=== PATIENT | female | born 1960 | race Caucasian/White ===

== ENCOUNTER 2018-01-18 13:38 | Emergency (ER) | payer OTHER ==
--- NOTE | 2018-01-18 14:33 | RAD REPORT ---
EXAM DESCRIPTION: VAS - Extrem Venous W Compress Jenaro - 01/18/2018 2:22 pm CLINICAL HISTORY: Bilateral leg edema and swelling. COMPARISON: None. TECHNIQUE: Real-time sonographic interrogation of the left and right lower extremity deep venous sys tems was performed. FINDINGS: Normal compressibility, flow augmentation, phasic flow and spontaneous flow is identified in both the left and right lower extremity deep venous systems. IMPRESSION: No sonographic evidence of left or right lower extremity deep venous thrombosis.
--- NOTE | 2018-01-18 14:36 | ER ---
Nurse's Notes [facility] Name: Roseline Payne Age: 57 yrs Sex: Female : 1960 Arrival Date: 01/18/2018 Time: 13:44 Bed 16 Private MD: Diagnosis: Chronic pain, not elsewhere classified;Myalgia;Headache Presentation: 01/18 13:57 Presenting complaint: Patient states: has chronic low back pain and neck pain and hs iw been out of Tylenol #4, has hx of RA, also has blood clotting disorder and has been having increased pain to LLE and RLE, left worse than right, hx of DVT in LLE. Transition of care: patient was not received from another setting of care. Onset of symptoms was January 15, 2018. Risk Assessment: Do you want to hurt yourself or someone else? Patient reports no desire to harm self or others. Initial Sepsis Screen: Does the patient meet any 2 criteria? No. Patient's initial sepsis screen is negative. Does the patient have a suspected source of infection? No. Patient's initial sepsis screen is negative. Care prior to arrival: None. 13:57 Method Of Arrival: EMS: [facility] iw 13:57 Acuity: YARIEL 3 iw Triage Assessment: 16:30 General: Appears in no apparent distress. comfortable, Behavior is calm, cooperative, ch appropriate for age. 16:30 Pain: Complains of pain in left hand and left arm. 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 - Social history:: Smoking status: Patient/guardian denies using tobacco, pt stopped smoking 100 days ago, was smoking 1/2 ppd. - Ebola Screening: : Patient negative for fever greater than or equal to 101.5 degrees Fahrenheit, and additional compatible Ebola Virus Disease symptoms Patient denies exposure to infectious person Patient denies travel to an Ebola-affected area in the 21 days before illness onset No symptoms or risks identified at this time. Screenin:30 Abuse screen: Denies threats or abuse. Denies injuries from another. ch 19:46 Nutritional screening: No deficits noted. Tuberculosis screening: No symptoms or risk ch factors identified. Fall Risk None identified. Assessment: 14:30 General: Appears in no apparent distress. uncomfortable, Behavior is calm, cooperative, ch appropriate for age. Pain: Complains of pain in right leg and left leg. 14:30 Neuro: No deficits noted. Respiratory: Airway is patent Respiratory effort is even, ch unlabored. GI: No signs and/or symptoms were reported involving the gastrointestinal system. Derm: Skin is pink, warm \T\ dry. Musculoskeletal: Circulation, motion, and sensation intact. Capillary refill < 3 seconds, in bilateral fingers. toes. Range of motion: intact in all extremities. Vital Signs: 13:59 BP 144 / 84; Pulse 81; Resp 18 S; Temp 97.8; Pulse Ox 97% on R/A; Weight 77.11 kg; iw Height 5 ft. 4 in. (162.56 cm); Pain 8/10; 16:00 BP 135 / 78; Pulse 81; Resp 18; Temp 98.3; Pulse Ox 99% on R/A; Pain 6/10; ch 13:59 Body Mass Index 29.18 (77.11 kg, 162.56 cm) iw ED Course: 13:44 Patient arrived in ED. dm5 13:51 [facility]ads[facility]C [facility] snw 13:51 Diallo Lu MD is Attending Physician. snw 13:58 Triage completed. iw 13:59 Arm band placed on. iw 14:11 Patient taken to ultrasound. hr 14:15 Viji Mares, R[place] is Primary Nurse. ch 14:21 US Extremity Venous W Compression Jenaro In Process Unspecified. EDMS 14:25 Ultrasound completed. Patient tolerated well. Patient moved back from ultrasound. aa4 14:30 No provider procedures requiring assistance completed. Patient did not have IV access ch during this emergency room visit. 16:00 Patient has correct armband on for positive identification. Placed in gown. Bed in low ch position. Call light in reach. Side rails up X 1. Adult w/ patient. Pulse ox on. NIBP on. Administered Medications: 14:50 Drug: Valium 5 mg Route: PO; 15:10 Follow up: Response: No adverse reaction; Marked relief of symptoms 14:50 Drug: fentaNYL (PF) 25 mcg Route: IM; Site: left gluteus; 15:10 Follow up: Response: No adverse reaction Outcome: 14:35 Discharge ordered by . snw 15:20 Discharged to home ambulatory, with family. 15:20 Condition: stable 15:20 Discharge instructions given to patient, Instructed on discharge instructions, follow up and referral plans. medication usage, Demonstrated understanding of instructions, follow-up care, medications, Prescriptions given X 1. 15:29 Patient left the ED. iw Signatures: Dispatcher [employer] Viji Looney, RN RN Anne Manning RN RN dm5 Lissy Madsen, MULTIMEDIA PROJECT MANAGER-C MULTIMEDIA PROJECT MANAGER-Csnw Renetta العراقي Irene, RN RN Sejal Hu aa4 Corrections: (The following items were deleted from the chart) 01/19 08:41 06/04 19:46 Abuse screen: Denies threats or abuse. Denies injuries from another. [facility]
--- NOTE | 2018-01-18 14:36 | EDPHYS ---
Physician Documentation [facility] Name: Roseline Payne Age: 57 yrs Sex: Female : 1960 Arrival Date: 01/18/2018 Time: 13:44 Bed 16 Private MD: ED Physician Diallo Lu HPI: 01/18 13:56 This 57 yrs old Female presents to ER via Unassigned with complaints of Leg snw Pain. 13:56 The patient presents with pain, that is acute, swelling. The complaints affect the left snw hamstring and left calf. Context: The problem was sustained at home, resulted from an unknown cause, the patient can fully bear weight, the patient is able to ambulate, hx of clotting disorder. Onset: The symptoms/episode began/occurred suddenly, 1 week(s) ago, and became worse and became persistent. Associated signs and symptoms: Pertinent positives: pain to bilateral legs and back, headache. Severity of symptoms: At their worst the symptoms were moderate. The patient has experienced similar episodes in the past. The patient has not recently seen a physician, the patient's primary care provider is Dr. Dr. Bryant. takes xarelto but pt did not take meds x 2 days and then started taking them again. 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 - Social history:: Smoking status: Patient/guardian denies using tobacco, pt stopped smoking 100 days ago, was smoking 1/2 ppd. - Ebola Screening: : Patient negative for fever greater than or equal to 101.5 degrees Fahrenheit, and additional compatible Ebola Virus Disease symptoms Patient denies exposure to infectious person Patient denies travel to an Ebola-affected area in the 21 days before illness onset No symptoms or risks identified at this time. ROS: 13:56 Eyes: Negative for injury, pain, redness, and discharge, ENT: Negative for injury, snw pain, and discharge, Neck: Negative for injury, pain, and swelling, Cardiovascular: Negative for chest pain, palpitations, and edema, Respiratory: Negative for shortness of breath, cough, wheezing, and pleuritic chest pain, Abdomen/GI: Negative for abdominal pain, nausea, vomiting, diarrhea, and constipation, : Negative for injury, bleeding, discharge, and swelling, Skin: Negative for injury, rash, and discoloration, Neuro: Negative for headache, weakness, numbness, tingling, and seizure. 13:56 Constitutional: Positive for body aches, malaise. 13:56 Back: Positive for decreased range of motion, pain at rest, pain with movement. 13:56 MS/extremity: Positive for pain, swelling, of the right leg and left leg. Exam: 13:56 Head/Face: Normocephalic, atraumatic. Eyes: Pupils equal round and reactive to light, snw extra-ocular motions intact. Lids and lashes normal. Conjunctiva and sclera are non-icteric and not injected. Cornea within normal limits. Periorbital areas with no swelling, redness, or edema. ENT: Nares patent. No nasal discharge, no septal abnormalities noted. Tympanic membranes are normal and external auditory canals are clear. Oropharynx with no redness, swelling, or masses, exudates, or evidence of obstruction, uvula midline. Mucous membranes moist. Neck: Trachea midline, no thyromegaly or masses palpated, and no cervical lymphadenopathy. Supple, full range of motion without nuchal rigidity, or vertebral point tenderness. No Meningismus. Chest/axilla: Normal chest wall appearance and motion. Nontender with no deformity. No lesions are appreciated. Cardiovascular: Regular rate and rhythm with a normal S1 and S2. No gallops, murmurs, or rubs. Normal PMI, no JVD. No pulse deficits. Respiratory: Lungs have equal breath sounds bilaterally, clear to auscultation and percussion. No rales, rhonchi or wheezes noted. No increased work of breathing, no retractions or nasal flaring. Abdomen/GI: Soft, non-tender, with normal bowel sounds. No distension or tympany. No guarding or rebound. No evidence of tenderness throughout. Back: No spinal tenderness. No costovertebral tenderness. Full range of motion. Skin: Warm, dry with normal turgor. Normal color with no rashes, no lesions, and no evidence of cellulitis. Neuro: Awake and alert, GCS 15, oriented to person, place, time, and situation. Cranial nerves II-XII grossly intact. Motor strength 5/5 in all extremities. Sensory grossly intact. Cerebellar exam normal. Normal gait. 13:56 Constitutional: The patient appears alert, anxious, restless, uncomfortable. 13:56 Musculoskeletal/extremity: Extremities: noted in the left leg: swelling, noted in the right leg: ROM: intact in all extremities, Circulation is intact in all extremities. Sensation intact. Compartment Syndrome exam of affected extremity: is normal. Nails: discolored. Vital Signs: 13:59 BP 144 / 84; Pulse 81; Resp 18 S; Temp 97.8; Pulse Ox 97% on R/A; Weight 77.11 kg; iw Height 5 ft. 4 in. (162.56 cm); Pain 8/10; 16:00 BP 135 / 78; Pulse 81; Resp 18; Temp 98.3; Pulse Ox 99% on R/A; Pain 6/10; ch 13:59 Body Mass Index 29.18 (77.11 kg, 162.56 cm) iw MDM: 13:51 Patient medically screened. snw 14:36 Data reviewed: vital signs, nurses notes. Data interpreted: Pulse oximetry: on room air snw is 97 %. Interpretation: normal. Counseling: I had a detailed discussion with the patient and/or guardian regarding: the historical points, exam findings, and any diagnostic results supporting the discharge/admit diagnosis, the presence of at least one elevated blood pressure reading (>120/80) during this emergency department visit, radiology results, the need for outpatient follow up, to return to the emergency department if symptoms worsen or persist or if there are any questions or concerns that arise at home. Special discussion: I have referred the patient to see his PCP for further evaluation of high blood pressure. Based on the history and exam findings, there is no indication for further emergent testing or inpatient evaluation. I discussed with the patient/guardian the need to see the primary care provider for further evaluation of the symptoms. 01/18 13:52 Order name: US Extremity Venous W Compression Jenaro; Complete Time: 14:34 snw Administered Medications: 14:50 Drug: Valium 5 mg Route: PO; 15:10 Follow up: Response: No adverse reaction; Marked relief of symptoms 14:50 Drug: fentaNYL (PF) 25 mcg Route: IM; Site: left gluteus; 15:10 Follow up: Response: No adverse reaction Disposition: 01/19 08:14 Co-signature as Attending Physician, Diallo Lu MD I agree with the assessment and charu plan of care. Disposition: 01/18/18 14:35 Discharged to Home. Impression: Chronic pain, not elsewhere classified, Myalgia, Headache. - Condition is Stable. - Discharge Instructions: Chronic Pain, General Headache Without Cause, Hypertension, Musculoskeletal Pain, Cryotherapy, [id number], Rehydration, Adult, Heat Therapy. - Prescriptions for orphenadrine citrate 100 mg Oral Tablet Sustained Release - take 1 tablet by ORAL route 2 times per day As needed; 20 tablet. - Work release form, Medication Reconciliation Form, Thank You Letter, Antibiotic Education, Prescription Opioid Use form. - Follow up: Emergency Department; When: As needed; Reason: Worsening of condition. Follow up: Private Physician; When: 1 - 2 days; Reason: Recheck today's complaints, Continuance of care, Re-evaluation by your physician. Signatures: Dispatcher [employer] Viji Looney, [place] RN Diallo Parsons MD MD cha Therrien, Shelly, COMPUTED TOMOGRAPHY TECHNOLOGIST-C COMPUTED TOMOGRAPHY TECHNOLOGIST-Csnw Veronica Estrella RN RN iw Corrections: (The following items were deleted from the chart) 01/18 15:29 14:35 01/18/2018 14:35 Discharged to Home. Impression: Chronic pain, not elsewhere iw classified; Myalgia; Headache. Condition is Stable. Forms are Medication Reconciliation Form, Thank You Letter, Antibiotic Education, Prescription Opioid Use. Follow up: Emergency Department; When: As needed; Reason: Worsening of condition. Follow up: Private Physician; When: 1 - 2 days; Reason: Recheck today's complaints, Continuance of care, Re-evaluation by your physician. snw
[2018-01-18] MEDS ORDERED: FENTANYL CITR 100 MCG/2 ML ONE (14:42)
[2018-01-18] MEDS ORDERED: DIAZEPAM 5 MG TABLET ONE (14:42)
[2018-01-18 15:33] VITALS: BP 144/84; TEMP 97.8; O2SAT 97
== END 2018-01-18 15:29 | disposition home or self-care (01) ==
LOC: ER 13:38
DX: G89.29 Other chronic pain (principal); F45.42 Pain disorder with related psychological factors; M79.1 Myalgia; R51 Headache; Z87.891 Personal history of nicotine dependence
CPT/HCPCS: 93970; 96372; 99284; J3010

== ENCOUNTER 2022-09-10 12:35 | Emergency (ER) | payer OTHER ==
--- OUTSIDE RECORDS SUMMARY | 2022-09-10 12:46 | XMS REPORT | Continuity of Care Document ---
:1960 Author Organization [facility] t Address 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 without - [facility] hepatic hepatic [facility] Encounter Encounter Problem Active Com mon for for [facility] immunizati immunizati - [facility] on on [facility] Essential Essential Problem Active Com mon hypertensi hypertensi Sp ameya on on - [facility] Bipolar Bipolar Problem Active Common depression depression Sp ameya - [facility] 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 Clinician (SIG) Name Name FLUOXETINE No HYDROCHLORI 1-10 DE 60 MG 00:00: TABS 00 USE 2021-08 No DIRECTED 0-06 PER PACKAGE 00:00: INSTRUCTION 00 S. DO NOT USE MORE THAN 1 PATCH EVERY 12 TO 24 HOURS. USE 2021-08 No DIRECTED 0-06 PER PACKAGE 00:00: INSTRUCTION 00 S. DO NOT USE MORE THAN 1 PATCH EVERY 12 TO 24 HOURS. USE 2021-08 No DIRECTED 0-06 PER PACKAGE 00:00: INSTRUCTION 00 S. DO NOT USE MORE THAN 1 PATCH EVERY 12 TO 24 HOURS. USE 2-1 No DIRECTED 0-06 PER PACKAGE 00:00: INSTRUCTION 00 S. DO NOT USE MORE THAN 1 PATCH EVERY 12 TO 24 HOURS. SYMBICORT 2-0 No 160-4.5 9-15 MCG/ACT 00:00: AERO 00 SYMBICORT 2-0 No 160-4.5 9-15 MCG/ACT 00:00: AERO 00 SYMBICORT 2-0 No 160-4.5 9-15 MCG/ACT 00:00: AERO 00 SYMBICORT 2-0 No 160-4.5 9-15 MCG/ACT 00:00: AERO 00 SYMBICORT 2-0 No 160-4.5 9-15 MCG/ACT 00:00: AERO 00 Dose 2-0 No Unknown 9-15 00:00: 00 SYMBICORT 2022-0 No 160-4.5 9-15 MCG/ACT 00:00: AERO 00 &lt 2022-0 No 8-16 00:00: 00 Dose 2022-0 No Unknown 8-16 00:00: 00 &lt 2022-0 No 8-16 00:00: 00 Dose 2022-0 No Unknown 8-16 00:00: 00 &lt 2022-0 No 8-16 00:00: 00 Dose 2022-0 No Unknown 8-16 00:00: 00 &lt 2022-0 No 8-16 00:00: 00 Dose 2022-0 No Unknown 8-16 00:00: 00 &lt 2022-0 No 8-16 00:00: 00 Dose 2022-0 No Unknown 8-16 00:00: 00 &lt 2022-0 No 8-16 00:00: 00 Dose 2022-0 No Unknown 8-16 00:00: 00 &lt 2022-0 No 8-16 00:00: 00 Dose 2022-0 No Unknown 8-16 00:00: 00 &lt 2022-0 No 8-16 00:00: 00 Dose 2022-0 No Unknown 8-16 00:00: 00 &lt 2022-0 No 8-15 00:00: 00 Dose 2022-0 No Unknown 8-15 00:00: 00 &lt 2022-0 No 8-15 00:00: 00 Dose 2022-0 No Unknown 8-15 00:00: 00 &lt 2022-0 No 8-15 00:00: 00 Dose 2022-0 No Unknown 8-15 00:00: 00 &lt 2022-0 No 8-15 00:00: 00 Dose 2022-0 No Unknown 8-15 00:00: 00 &lt 2022-0 No 8-15 00:00: 00 Dose 2022-0 No Unknown 8-15 00:00: 00 &lt 2022-0 No 8-15 00:00: 00 Dose 2022-0 No Unknown 8-15 00:00: 00 &lt 2022-0 No 8-15 00:00: 00 Dose 2022-0 No Unknown 8-15 00:00: 00 &lt 2022-0 No 8-15 00:00: 00 Dose 2022-0 No Unknown 8-15 00:00: 00 atenolol 2022-0 No 1mg 100 8-12 mg-chlortha 00:00: lidone 25 00 mg tablet &lt 2022-0 No 8-12 00:00: 00 &lt 2022-0 No 8-12 00:00: 00 &lt 2022-0 No 8-12 00:00: 00 atenolol 2022-0 No 1mg 100 8-12 mg-chlortha 00:00: lidone 25 00 mg tablet &lt 2022-0 No 8-12 00:00: 00 &lt 2022-0 No 8-12 00:00: 00 &lt 2022-0 No 8-12 00:00: 00 atenolol 2022-0 No 1mg 100 8-12 mg-chlortha 00:00: lidone 25 00 mg tablet &lt 2022-0 No 8-12 00:00: 00 &lt 2022-0 No 8-12 00:00: 00 &lt 2022-0 No 8-12 00:00: 00 atenolol 2022-0 No 1mg 100 8-12 mg-chlortha 00:00: lidone 25 00 mg tablet &lt 2022-0 No 8-12 00:00: 00 &lt 2022-0 No 8-12 00:00: 00 &lt 2022-0 No 8-12 00:00: 00 atenolol 2022-0 No 1mg 100 8-12 mg-chlortha 00:00: lidone 25 00 mg tablet &lt 2022-0 No 8-12 00:00: 00 &lt 2022-0 No 8-12 00:00: 00 &lt 2022-0 No 8-12 00:00: 00 atenolol 2022-0 No 1mg 100 8-12 mg-chlortha 00:00: lidone 25 00 mg tablet &lt 2022-0 No 8-12 00:00: 00 &lt 2022-0 No 8-12 00:00: 00 &lt 2022-0 No 8-12 00:00: 00 atenolol 2022-0 No 1mg 100 8-12 mg-chlortha 00:00: lidone 25 00 mg tablet &lt 2022-0 No 8-12 00:00: 00 &lt 2022-0 No 8-12 00:00: 00 &lt 2022-0 No 8-12 00:00: 00 atenolol 2022-0 No 1mg 100 8-12 mg-chlortha 00:00: lidone 25 00 mg tablet &lt 2022-0 No 8-12 00:00: 00 &lt 2022-0 No 8-12 00:00: 00 &lt 2022-0 No 8-12 00:00: 00 &lt 2022-0 No 8-08 00:00: 00 &lt 2022-0 No 8-08 00:00: 00 &lt 2022-0 No 8-08 00:00: 00 &lt 2022-0 No 8-08 00:00: 00 &lt 2022-0 No 8-08 00:00: 00 &lt 2022-0 No 8-08 00:00: 00 &lt 2022-0 No 8-08 00:00: 00 &lt 2022-0 No 8-08 00:00: 00 Dose 2022-0 No 20 Unknown 8- 00:00: 00 Dose 2022-0 No 20 Unknown 8- 00:00: 00 Dose 2022-0 No 20 Unknown 8- 00:00: 00 Dose 2022-0 No 20 Unknown 8- 00:00: 00 Dose 2022-0 No 20 Unknown 8-05 00:00: 00 Dose 2022-0 No 20 Unknown 8- 00:00: 00 Dose 2022-0 No 20 Unknown 8-05 00:00: 00 Dose 2022-0 No 20 Unknown 8-05 00:00: 00 &lt 2022-0 No 60 8-04 00:00: 00 Dose 2022-0 No 40 Unknown 8- 00:00: 00 &lt 2022-0 No 8-04 00:00: 00 &lt 2022-0 No 60 8-04 00:00: 00 Dose 2022-0 No 40 Unknown 8- 00:00: 00 &lt 2022-0 No 8-04 00:00: 00 &lt 2022-0 No 60 8-04 00:00: 00 Dose 2022-0 No 40 Unknown 8- 00:00: 00 &lt 2022-0 No 8-04 00:00: 00 &lt 2022-0 No 60 8-04 00:00: 00 Dose 2022-0 No 40 Unknown 8- 00:00: 00 &lt 2022-0 No 8-04 00:00: 00 &lt 2022-0 No 60 8-04 00:00: 00 Dose 2022-0 No 40 Unknown 8- 00:00: 00 &lt 2022-0 No 8-04 00:00: 00 &lt 2022-0 No 60 8-04 00:00: 00 Dose 2022-0 No 40 Unknown 8- 00:00: 00 &lt 2022-0 No 8-04 00:00: 00 &lt 2022-0 No 60 8-04 00:00: 00 Dose 2022-0 No 40 Unknown 8- 00:00: 00 &lt 2022-0 No 8-04 00:00: 00 &lt 2022-0 No 60 8-04 00:00: 00 Dose 2022-0 No 40 Unknown 8- 00:00: 00 &lt 2022-0 No 8-04 00:00: 00 Dose 2022-0 No Unknown 8- 00:00: 00 &lt 2022-0 No 40 8- 00:00: 00 Dose 2022-0 No Unknown 8- 00:00: 00 &lt 2022-0 No 40 8- 00:00: 00 Dose 2022-0 No Unknown 8- 00:00: 00 &lt 2022-0 No 40 8- 00:00: 00 Dose 2022-0 No Unknown 8- 00:00: 00 &lt 2022-0 No 40 8- 00:00: 00 Dose 2022-0 No Unknown 8- 00:00: 00 &lt 2022-0 No 40 8- 00:00: 00 Dose 2022-0 No Unknown 8- 00:00: 00 &lt 2022-0 No 40 8- 00:00: 00 Dose 2022-0 No Unknown 8- 00:00: 00 &lt 2022-0 No 40 8- 00:00: 00 Dose 2022-0 No Unknown 8- 00:00: 00 &lt 2022-0 No 40 8- 00:00: 00 &lt 2022-0 No 40 7-18 00:00: 00 &lt 2022-0 No 40 7-18 00:00: 00 &lt 2022-0 No 40 7-18 00:00: 00 &lt 2022-0 No 40 7-18 00:00: 00 &lt 2022-0 No 40 7-18 00:00: 00 &lt 2022-0 No 40 7-18 00:00: 00 &lt 2022-0 No 40 7-18 00:00: 00 &lt 2022-0 No 40 7-18 00:00: 00 &lt 2022-0 No 40 7-18 00:00: 00 Dose 2022-0 No 20 Unknown 7-11 00:00: 00 &lt 2022-0 No 40 7-11 00:00: 00 &lt 2022-0 No 7-11 00:00: 00 &lt 2022-0 No 20 7-11 00:00: 00 &lt 2022-0 No 7-11 00:00: 00 &lt 2022-0 No 7-11 00:00: 00 Dose 2022-0 No 20 Unknown 7-11 00:00: 00 &lt 2022-0 No 40 7-11 00:00: 00 &lt 2022-0 No 7-11 00:00: 00 Dose 2022-0 No 20 Unknown 7-11 00:00: 00 &lt 2022-0 No 20 7-11 00:00: 00 &lt 2022-0 No 7-11 00:00: 00 &lt 2022-0 No 7-11 00:00: 00 Dose 2022-0 No 20 Unknown 7-11 00:00: 00 &lt 2022-0 No 60 7-11 00:00: 00 &lt 2022-0 No 20 7-11 00:00: 00 &lt 2022-0 No 500 7-11 00:00: 00 &lt 2022-0 No 60 7-11 00:00: 00 &lt 2022-0 No 20 7-11 00:00: 00 &lt 2022-0 No 500 7-11 00:00: 00 Dose 2022-0 No 20 Unknown 7- 00:00: 00 &lt 2022-0 No 40 7-11 00:00: 00 &lt 2022-0 No 7-11 00:00: 00 &lt 2022-0 No 20 7- 00:00: 00 &lt 2022-0 No 7-11 00:00: 00 &lt 2022-0 No 7-11 00:00: 00 Dose 2022-0 No 20 Unknown 7- 00:00: 00 &lt 2022-0 No 60 7- 00:00: 00 &lt 2022-0 No 20 7-11 00:00: 00 &lt 2022-0 No 500 7- 00:00: 00 Dose 2022-0 No 20 Unknown 7- 00:00: 00 &lt 2022-0 No 40 7- 00:00: 00 &lt 2022-0 No 7-11 00:00: 00 &lt 2022-0 No 20 7-11 00:00: 00 &lt 2022-0 No 7-11 00:00: 00 &lt 2022-0 No 7-11 00:00: 00 Dose 2022-0 No 20 Unknown 7-11 00:00: 00 &lt 2022-0 No 60 7-11 00:00: 00 &lt 2022-0 No 20 7-11 00:00: 00 &lt 2022-0 No 500 7-11 00:00: 00 Dose 2022-0 No 20 Unknown 7- 00:00: 00 &lt 2022-0 No 40 7-11 00:00: 00 &lt 2022-0 No 7-11 00:00: 00 &lt 2022-0 No 20 7-11 00:00: 00 &lt 2022-0 No 7-11 00:00: 00 &lt 2022-0 No 7-11 00:00: 00 Dose 2022-0 No 20 Unknown 7- 00:00: 00 &lt 2022-0 No 60 7- 00:00: 00 &lt 2022-0 No 20 7-11 00:00: 00 &lt 2022-0 No 500 7-11 00:00: 00 Dose 2022-0 No 20 Unknown 7- 00:00: 00 &lt 2022-0 No 40 7- 00:00: 00 &lt 2022-0 No 7-11 00:00: 00 &lt 2022-0 No 20 7- 00:00: 00 &lt 2022-0 No 7- 00:00: 00 &lt 2022-0 No 7- 00:00: 00 Dose 2022-0 No 20 Unknown 7- 00:00: 00 &lt 2022-0 No 60 7- 00:00: 00 &lt 2022-0 No 20 7- 00:00: 00 &lt 2022-0 No 500 7- 00:00: 00 Dose 2022-0 No 20 Unknown 7- 00:00: 00 &lt 2022-0 No 40 7- 00:00: 00 &lt 2022-0 No 7- 00:00: 00 &lt 2022-0 No 20 7- 00:00: 00 &lt 2022-0 No 7-11 00:00: 00 &lt 2022-0 No 7-11 00:00: 00 Dose 2022-0 No 20 Unknown 7- 00:00: 00 &lt 2022-0 No 60 7- 00:00: 00 &lt 2022-0 No 20 7-11 00:00: 00 &lt 2022-0 No 500 7-11 00:00: 00 Dose 2022-0 No 20 Unknown 7- 00:00: 00 &lt 2022-0 No 40 7-11 00:00: 00 &lt 2022-0 No 7-11 00:00: 00 &lt 2022-0 No 20 7-11 00:00: 00 &lt 2022-0 No 7-11 00:00: 00 &lt 2022-0 No 7-11 00:00: 00 Dose 2022-0 No 20 Unknown 7-11 00:00: 00 &lt 2022-0 No 60 7-11 00:00: 00 &lt 2022-0 No 20 7-11 00:00: 00 &lt 2022-0 No 500 7- 00:00: 00 Dose 2022-0 No 20 Unknown 7-11 00:00: 00 &lt 2022-0 No 40 7-11 00:00: 00 &lt 2022-0 No 7-11 00:00: 00 &lt 2022-0 No 20 7-11 00:00: 00 &lt 2022-0 No 7-11 00:00: 00 &lt 2022-0 No 7-11 00:00: 00 Dose 2022-0 No 20 Unknown 7- 00:00: 00 &lt 2022-0 No 60 7- 00:00: 00 &lt 2022-0 No 20 7-11 00:00: 00 &lt 2022-0 No 500 7-11 00:00: 00 &lt 2022-0 No 6-29 00:00: 00 &lt 2022-0 No 6-29 00:00: 00 &lt 2022-0 No 6-29 00:00: 00 &lt 2022-0 No 6-29 00:00: 00 &lt 2022-0 No 6-29 00:00: 00 &lt 2022-0 No 6-29 00:00: 00 &lt 2022-0 No 6-29 00:00: 00 &lt 2022-0 No 6-29 00:00: 00 &lt 2022-0 No 6-29 00:00: 00 TAKE ONE 2022-0 No (1) 6-24 TABLET(S) 00:00: BY MOUTH 00 ONCE A DAY WITH FOOD. TAKE ONE 2022-0 No (1) 6-24 TABLET(S) 00:00: BY MOUTH 00 ONCE A DAY WITH FOOD. TAKE ONE 2022-0 No (1) 6-24 TABLET(S) 00:00: BY MOUTH 00 ONCE A DAY WITH FOOD. TAKE ONE 2022-0 No (1) 6-24 TABLET(S) 00:00: BY MOUTH 00 ONCE A DAY WITH FOOD. TAKE ONE 2022-0 No (1) 6-24 TABLET(S) 00:00: BY MOUTH 00 ONCE A DAY WITH FOOD. TAKE ONE 2022-0 No (1) 6-24 TABLET(S) 00:00: BY MOUTH 00 ONCE A DAY WITH FOOD. TAKE ONE 2022-0 No (1) 6-24 TABLET(S) 00:00: BY MOUTH 00 ONCE A DAY WITH FOOD. TAKE ONE 2022-0 No (1) 6-24 TABLET(S) 00:00: BY MOUTH 00 ONCE A DAY WITH FOOD. TAKE ONE 2022-0 No (1) 6-24 TABLET(S) 00:00: BY MOUTH 00 ONCE A DAY WITH FOOD. Dose 2022-0 No Unknown 5-14 00:00: 00 Dose 2022-0 No Unknown 5-14 00:00: 00 ciprofloxac 2022-0 No 1mg in 500 mg 5-14 tablet 00:00: 00 phenazopyri 2022-0 No mg dine 200 mg 5-14 tablet 00:00: 00 Dose 2022-0 No Unknown 5-14 00:00: 00 Dose 2022-0 No Unknown 5-14 00:00: 00 Dose 2022-0 No Unknown 5-14 00:00: 00 ciprofloxac 2022-0 No 1mg in 500 mg 5-14 tablet 00:00: 00 phenazopyri 2022-0 No mg dine 200 mg 5-14 tablet 00:00: 00 Dose 2022-0 No Unknown 5-14 00:00: 00 Dose 2022-0 No Unknown 5-14 00:00: 00 Dose 2022-0 No Unknown 5-14 00:00: 00 ciprofloxac 2022-0 No 1mg in 500 mg 5-14 tablet 00:00: 00 phenazopyri 2022-0 No mg dine 200 mg 5-14 tablet 00:00: 00 Dose 2022-0 No Unknown 5-14 00:00: 00 Dose 2022-0 No Unknown 5-14 00:00: 00 Dose 2022-0 No Unknown 5-14 00:00: 00 ciprofloxac 2022-0 No 1mg in 500 mg 5-14 tablet 00:00: 00 phenazopyri 2022-0 No mg dine 200 mg 5-14 tablet 00:00: 00 Dose 2022-0 No Unknown 5-14 00:00: 00 Dose 2022-0 No Unknown 5-14 00:00: 00 Dose 2022-0 No Unknown 5-14 00:00: 00 ciprofloxac 2022-0 No 1mg in 500 mg 5-14 tablet 00:00: 00 phenazopyri 2022-0 No mg dine 200 mg 5-14 tablet 00:00: 00 Dose 2022-0 No Unknown 5-14 00:00: 00 Dose 2022-0 No Unknown 5-14 00:00: 00 Dose 2022-0 No Unknown 5-14 00:00: 00 ciprofloxac 2022-0 No 1mg in 500 mg 5-14 tablet 00:00: 00 phenazopyri 2022-0 No mg dine 200 mg 5-14 tablet 00:00: 00 Dose 2022-0 No Unknown 5-14 00:00: 00 Dose 2022-0 No Unknown 5-14 00:00: 00 Dose 2022-0 No Unknown 5-14 00:00: 00 ciprofloxac 2022-0 No 1mg in 500 mg 5-14 tablet 00:00: 00 phenazopyri 2022-0 No mg dine 200 mg 5-14 tablet 00:00: 00 Dose 2022-0 No Unknown 5-14 00:00: 00 Dose 2022-0 No Unknown 5-14 00:00: 00 Dose 2022-0 No Unknown 5-14 00:00: 00 ciprofloxac 2022-0 No 1mg in 500 mg 5-14 tablet 00:00: 00 phenazopyri 2022-0 No mg dine 200 mg 5-14 tablet 00:00: 00 Dose 2022-0 No Unknown 5-14 00:00: 00 Dose 2022-0 No Unknown 5-14 00:00: 00 Dose 2022-0 No Unknown 5-14 00:00: 00 ciprofloxac 2022-0 No 1mg in 500 mg 5-14 tablet 00:00: 00 phenazopyri 2022-0 No mg dine 200 mg 5-14 tablet 00:00: 00 Dose 2022-0 No Unknown 5-14 00:00: 00 USE 2022-0 No DIRECTED 5-06 PER PACKAGE 00:00: INSTRUCTION 00 S. DO NOT USE MORE THAN 1 PATCH EVERY 12 TO 24 HOURS. Xarelto 20 2-0 No 1mg mg tablet 506 00:00: 00 atenolol 2022-0 No 1mg 100 5-06 mg-chlortha 00:00: lidone 25 00 mg tablet USE 2-0 No DIRECTED 5-06 PER PACKAGE 00:00: INSTRUCTION 00 S. DO NOT USE MORE THAN 1 PATCH EVERY 12 TO 24 HOURS. Xarelto 20 2-0 No 1mg mg tablet 12-20 00:00: 00 atenolol 2022-0 No 1mg 100 5-06 mg-chlortha 00:00: lidone 25 00 mg tablet USE 2021-0 No DIRECTED 5-06 PER PACKAGE 00:00: INSTRUCTION 00 S. DO NOT USE MORE THAN 1 PATCH EVERY 12 TO 24 HOURS. Xarelto 20 2-0 No 1mg mg tablet 12-20 00:00: 00 atenolol 2-0 No 1mg 100 5-06 mg-chlortha 00:00: lidone 25 00 mg tablet USE 2021-0 No DIRECTED 5-06 PER PACKAGE 00:00: INSTRUCTION 00 S. DO NOT USE MORE THAN 1 PATCH EVERY 12 TO 24 HOURS. Xarelto 20 2-0 No 1mg mg tablet 06 00:00: 00 atenolol 2-0 No 1mg 100 5-06 mg-chlortha 00:00: lidone 25 00 mg tablet lidocaine 5 2-0 No 1% % topical 5-06 patch 00:00: 00 Xarelto 20 2-0 No 1mg mg tablet 506 00:00: 00 atenolol 2022-0 No 1mg 100 5-06 mg-chlortha 00:00: lidone 25 00 mg tablet lidocaine 5 2-0 No 1% % topical 5-06 patch 00:00: 00 Xarelto 20 2-0 No 1mg mg tablet 5-06 00:00: 00 atenolol 2022-0 No 1mg 100 5-06 mg-chlortha 00:00: lidone 25 00 mg tablet lidocaine 5 2-0 No 1% % topical 5-06 patch 00:00: 00 Xarelto 20 2-0 No 1mg mg tablet 5-06 00:00: 00 atenolol 2022-0 No 1mg 100 5-06 mg-chlortha 00:00: lidone 25 00 mg tablet lidocaine 5 2-0 No 1% % topical 5-06 patch 00:00: 00 Xarelto 20 2022-0 No 1mg mg tablet 12-20 00:00: 00 atenolol 2022-0 No 1mg 100 5-06 mg-chlortha 00:00: lidone 25 00 mg tablet lidocaine 5 2-0 No 1% % topical 5-06 patch 00:00: 00 Xarelto 20 2022-0 No 1mg mg tablet 12-20 00:00: 00 atenolol 2022-0 No 1mg 100 5-06 mg-chlortha 00:00: lidone 25 00 mg tablet fluoxetine 2022-0 No 5mg 60 mg 4-29 tablet 00:00: 00 fluoxetine 2022-0 No 5mg 60 mg 4-29 tablet 00:00: 00 fluoxetine 2022-0 No 5mg 60 mg 4-29 tablet 00:00: 00 fluoxetine 2022-0 No 5mg 60 mg 4-29 tablet 00:00: 00 fluoxetine 2022-0 No 5mg 60 mg 4-29 tablet 00:00: 00 fluoxetine 2022-0 No 5mg 60 mg 4-29 tablet 00:00: 00 fluoxetine 2022-0 No 5mg 60 mg 4-29 tablet 00:00: 00 fluoxetine 2022-0 No 5mg 60 mg 4-29 tablet 00:00: 00 fluoxetine 2022-0 No 5mg 60 mg 4-29 tablet 00:00: 00 Dose 2022-0 No Unknown 3-25 00:00: 00 Dose 2022-0 No Unknown 3-25 00:00: 00 Dose 2022-0 No Unknown 3-25 00:00: 00 Dose 2022-0 No Unknown 3-25 00:00: 00 Dose 2022-0 No Unknown 3-25 00:00: 00 Dose 2022-0 No Unknown 3-25 00:00: 00 Dose 2022-0 No Unknown 3-25 00:00: 00 Dose 2022-0 No Unknown 3-25 00:00: 00 Dose 2022-0 No Unknown 3-25 00:00: 00 Dose 2022-0 No Unknown 3-25 00:00: 00 Dose 2022-0 No Unknown 3-25 00:00: 00 Dose 2022-0 No Unknown 3-25 00:00: 00 Dose 2022-0 No Unknown 3-25 00:00: 00 Dose 2022-0 No Unknown 3-25 00:00: 00 Dose 2022-0 No Unknown 3-25 00:00: 00 Dose 2022-0 No Unknown 3-25 00:00: 00 Dose 2022-0 No Unknown 3-25 00:00: 00 Dose 2022-0 No Unknown 3-25 00:00: 00 Dose 2022-0 No Unknown 3-25 00:00: 00 Dose 2022-0 No Unknown 3-25 00:00: 00 Dose 2022-0 No Unknown 3-25 00:00: 00 Dose 2022-0 No Unknown 3-25 00:00: 00 Dose 2022-0 No Unknown 3-25 00:00: 00 Dose 2022-0 No Unknown 3-25 00:00: 00 Dose 2022-0 No Unknown 3-25 00:00: 00 Dose 2022-0 No Unknown 3-25 00:00: 00 Dose 2022-0 No Unknown 3-25 00:00: 00 Dose 2022-0 No Unknown 3-25 00:00: 00 Dose 2022-0 No Unknown 3-25 00:00: 00 Dose 2022-0 No Unknown 3-25 00:00: 00 Dose 2022-0 No Unknown 3-25 00:00: 00 Dose 2022-0 No Unknown 3-25 00:00: 00 Dose 2022-0 No Unknown 3-25 00:00: 00 Dose 2022-0 No Unknown 3-25 00:00: 00 Dose 2022-0 No Unknown 3-25 00:00: 00 Dose 2022-0 No Unknown 3-25 00:00: 00 Dose 2022-0 No Unknown 2-22 00:00: 00 Dose 2022-0 No Unknown 2-22 00:00: 00 Dose 2022-0 No Unknown 2-22 00:00: 00 Dose 2022-0 No Unknown 2-22 00:00: 00 Dose 2022-0 No Unknown 2-22 00:00: 00 Dose 2022-0 No Unknown 2-22 00:00: 00 Dose 2022-0 No Unknown 2-22 00:00: 00 Dose 2022-0 No Unknown 2-22 00:00: 00 Dose 2022-0 No Unknown 2-22 00:00: 00 ProAir HFA 2-0 No 2mcg/ac 90 1-30 tuation mcg/actuati 00:00: on aerosol 00 inhaler Dose 2-0 No Unknown 1-30 00:00: 00 atenolol 50 2-0 No 1mg mg-chlortha 1-30 lidone 25 00:00: mg tablet 00 Dose 2-0 No Unknown 1-30 00:00: 00 cyclobenzap 2-0 No 1mg rine 10 mg 1-30 tablet 00:00: 00 Dose 2-0 No Unknown 1-30 00:00: 00 ProAir HFA 2-0 No 2mcg/ac 90 1-30 tuation mcg/actuati 00:00: on aerosol 00 inhaler Dose 2-0 No Unknown 1-30 00:00: 00 atenolol 50 2-0 No 1mg mg-chlortha 1-30 lidone 25 00:00: mg tablet 00 Dose 2-0 No Unknown 1-30 00:00: 00 cyclobenzap 2-0 No 1mg rine 10 mg 1-30 tablet 00:00: 00 Dose 2-0 No Unknown 1-30 00:00: 00 ProAir HFA 2-0 No 2mcg/ac 90 1-30 tuation mcg/actuati 00:00: on aerosol 00 inhaler Dose 2-0 No Unknown 1-30 00:00: 00 atenolol 50 2-0 No 1mg mg-chlortha 1-30 lidone 25 00:00: mg tablet 00 Dose 2-0 No Unknown 1-30 00:00: 00 cyclobenzap 2022-0 No 1mg rine 10 mg 1-30 tablet 00:00: 00 Dose 2-0 No Unknown 1-30 00:00: 00 ProAir HFA 2-0 No 2mcg/ac 90 1-30 tuation mcg/actuati 00:00: on aerosol 00 inhaler Dose 2-0 No Unknown 1-30 00:00: 00 atenolol 50 2-0 No 1mg mg-chlortha 1-30 lidone 25 00:00: mg tablet 00 Dose 2-0 No Unknown 1-30 00:00: 00 cyclobenzap 2022-0 No 1mg rine 10 mg 1-30 tablet 00:00: 00 Dose 2-0 No Unknown 1-30 00:00: 00 ProAir HFA 2-0 No 2mcg/ac 90 1-30 tuation mcg/actuati 00:00: on aerosol 00 inhaler Dose 2-0 No Unknown 1-30 00:00: 00 atenolol 50 2-0 No 1mg mg-chlortha 1-30 lidone 25 00:00: mg tablet 00 Dose 2-0 No Unknown 1-30 00:00: 00 cyclobenzap 2-0 No 1mg rine 10 mg 1-30 tablet 00:00: 00 Dose 2-0 No Unknown 1-30 00:00: 00 ProAir HFA 2-0 No 2mcg/ac 90 1-30 tuation mcg/actuati 00:00: on aerosol 00 inhaler Dose 2-0 No Unknown 1-30 00:00: 00 atenolol 50 2-0 No 1mg mg-chlortha 1-30 lidone 25 00:00: mg tablet 00 Dose 2-0 No Unknown 1-30 00:00: 00 cyclobenzap 2-0 No 1mg rine 10 mg 1-30 tablet 00:00: 00 Dose 2-0 No Unknown 1-30 00:00: 00 ProAir HFA 2-0 No 2mcg/ac 90 1-30 tuation mcg/actuati 00:00: on aerosol 00 inhaler Dose 2-0 No Unknown 1-30 00:00: 00 atenolol 50 2-0 No 1mg mg-chlortha 1-30 lidone 25 00:00: mg tablet 00 Dose 2-0 No Unknown 1-30 00:00: 00 cyclobenzap 2022-0 No 1mg rine 10 mg 1-30 tablet 00:00: 00 Dose 2-0 No Unknown 1-30 00:00: 00 ProAir HFA 2-0 No 2mcg/ac 90 1-30 tuation mcg/actuati 00:00: on aerosol 00 inhaler Dose 2-0 No Unknown 1-30 00:00: 00 atenolol 50 2-0 No 1mg mg-chlortha 1-30 lidone 25 00:00: mg tablet 00 Dose 2-0 No Unknown 1-30 00:00: 00 cyclobenzap 2-0 No 1mg rine 10 mg 1-30 tablet 00:00: 00 Dose 2-0 No Unknown 1-30 00:00: 00 ProAir HFA 2-0 No 2mcg/ac 90 1-30 tuation mcg/actuati 00:00: on aerosol 00 inhaler Dose 2-0 No Unknown 1-30 00:00: 00 atenolol 50 2-0 No 1mg mg-chlortha -30 lidone 25 00:00: mg tablet 00 Dose 2-0 No Unknown 1-30 00:00: 00 cyclobenzap 2-0 No 1mg rine 10 mg -30 tablet 00:00: 00 Dose 2-0 No Unknown 1-30 00:00: 00 fluoxetine 2020-1 No 1mg 40 mg 2-27 capsule 00:00: 00 fluoxetine 2020-1 No 1mg 40 mg 2-27 capsule 00:00: 00 fluoxetine 2020-1 No 1mg 40 mg 2-27 capsule 00:00: 00 fluoxetine 2020-1 No 1mg 40 mg 2-27 capsule 00:00: 00 fluoxetine 2020-1 No 1mg 40 mg 2-27 capsule 00:00: 00 fluoxetine 2020-1 No 1mg 40 mg 2-27 capsule 00:00: 00 fluoxetine 2020-1 No 1mg 40 mg 2-27 capsule 00:00: 00 fluoxetine 1-1 No 1mg 40 mg 2-27 capsule 00:00: 00 fluoxetine 1-1 No 1mg 40 mg 2-27 capsule 00:00: 00 fluoxetine 1-1 No 1mg 40 mg 2-12 capsule 00:00: 00 fluoxetine 1-1 No 1mg 40 mg 2-12 capsule 00:00: 00 fluoxetine 2020-1 No 1mg 40 mg 2-12 capsule 00:00: 00 fluoxetine 2020-1 No 1mg 40 mg 2-12 capsule 00:00: 00 fluoxetine 2020-1 No 1mg 40 mg 2-12 capsule 00:00: 00 fluoxetine 2020-1 No 1mg 40 mg 2-12 capsule 00:00: 00 fluoxetine 2020-1 No 1mg 40 mg 2-12 capsule 00:00: 00 fluoxetine 2020-1 No 1mg 40 mg 2-12 capsule 00:00: 00 fluoxetine 2020- No 1mg 40 mg 2-12 capsule 00:00: 00 cyclobenzap 2020- No 1mg rine 10 mg 1-16 tablet 00:00: 00 cyclobenzap 2020- No 1mg rine 10 mg 1-16 tablet 00:00: 00 cyclobenzap 2020- No 1mg rine 10 mg 1-16 tablet 00:00: 00 cyclobenzap 2020- No 1mg rine 10 mg 1-16 tablet 00:00: 00 cyclobenzap 2020- No 1mg rine 10 mg 1-16 tablet 00:00: 00 cyclobenzap 2020- No 1mg rine 10 mg 1-16 tablet 00:00: 00 cyclobenzap 2020- No 1mg rine 10 mg 1-16 tablet 00:00: 00 cyclobenzap 2020-08 No 1mg rine 10 mg 1-16 tablet 00:00: 00 cyclobenzap 2020- No 1mg rine 10 mg 1-16 tablet 00:00: 00 Dose 2020-1 No Unknown 1-04 00:00: 00 Dose 2020-1 No Unknown 1-04 00:00: 00 Dose 2020-1 No Unknown 1-04 00:00: 00 Dose 2020-1 No Unknown 1-04 00:00: 00 Dose 2020-1 No Unknown 1-04 00:00: 00 Dose 2020-1 No Unknown 1-04 00:00: 00 Dose 2020-1 No Unknown 1-04 00:00: 00 Dose 2020-1 No Unknown 1-04 00:00: 00 Dose 2020-1 No Unknown 1-04 00:00: 00 lidocaine 5 2020- No 1% % topical -02 patch 00:00: 00 Xarelto 20 2020- No 1mg mg tablet 1-02 00:00: 00 atenolol 50 2020- No 5mg mg-chlortha -02 lidone 25 00:00: mg tablet 00 prednisone 2020- No 2mg 20 mg 1-02 tablet 00:00: 00 cephalexin 2020- No 1mg 500 mg 1-02 tablet 00:00: 00 fluoxetine 2020- No 1mg 40 mg 1-02 capsule 00:00: 00 lidocaine 5 2020- No 1% % topical 1-02 patch 00:00: 00 Xarelto 20 2020- No 1mg mg tablet 1-02 00:00: 00 atenolol 50 2020- No 5mg mg-chlortha 1-02 lidone 25 00:00: mg tablet 00 prednisone 2020-08 No 2mg 20 mg 1-02 tablet 00:00: 00 cephalexin 2020- No 1mg 500 mg 1-02 tablet 00:00: 00 fluoxetine 2020- No 1mg 40 mg 1-02 capsule 00:00: 00 lidocaine 5 2020- No 1% % topical 1-02 patch 00:00: 00 Xarelto 20 2020- No 1mg mg tablet - 00:00: 00 atenolol 50 2020- No 5mg mg-chlortha -02 lidone 25 00:00: mg tablet 00 prednisone 2020-08 No 2mg 20 mg 1-02 tablet 00:00: 00 cephalexin 2020- No 1mg 500 mg 1-02 tablet 00:00: 00 fluoxetine 2020- No 1mg 40 mg 1-02 capsule 00:00: 00 lidocaine 5 2020- No 1% % topical 1-02 patch 00:00: 00 Xarelto 20 2020-08 No 1mg mg tablet - 00:00: 00 atenolol 50 2020-08 No 5mg mg-chlortha 1-02 lidone 25 00:00: mg tablet 00 prednisone 2020- No 2mg 20 mg 1-02 tablet 00:00: 00 cephalexin 2020-1 No 1mg 500 mg 1-02 tablet 00:00: 00 fluoxetine 2020- No 1mg 40 mg 1-02 capsule 00:00: 00 lidocaine 5 2020- No 1% % topical 1-02 patch 00:00: 00 Xarelto 20 2020- No 1mg mg tablet 1-02 00:00: 00 atenolol 50 2020- No 5mg mg-chlortha 1-02 lidone 25 00:00: mg tablet 00 prednisone 2020- No 2mg 20 mg 1-02 tablet 00:00: 00 cephalexin 2020-1 No 1mg 500 mg 1-02 tablet 00:00: 00 fluoxetine 2020-1 No 1mg 40 mg 1-02 capsule 00:00: 00 lidocaine 5 2020- No 1% % topical 1-02 patch 00:00: 00 Xarelto 20 2020-1 No 1mg mg tablet 1-02 00:00: 00 atenolol 50 2020- No 5mg mg-chlortha 1-02 lidone 25 00:00: mg tablet 00 prednisone 2020- No 2mg 20 mg 1-02 tablet 00:00: 00 cephalexin 2020-1 No 1mg 500 mg 1-02 tablet 00:00: 00 fluoxetine 2020- No 1mg 40 mg 1-02 capsule 00:00: 00 lidocaine 5 2020- No 1% % topical 1-02 patch 00:00: 00 Xarelto 20 2020- No 1mg mg tablet 08-18 00:00: 00 atenolol 50 2020- No 5mg mg-chlortha 1-02 lidone 25 00:00: mg tablet 00 prednisone 2020- No 2mg 20 mg 1-02 tablet 00:00: 00 cephalexin 2020-1 No 1mg 500 mg 1-02 tablet 00:00: 00 fluoxetine 2020-1 No 1mg 40 mg 1-02 capsule 00:00: 00 lidocaine 5 2020-1 No 1% % topical 1-02 patch 00:00: 00 Xarelto 20 2020-1 No 1mg mg tablet - 00:00: 00 atenolol 50 2020- No 5mg mg-chlortha 1-02 lidone 25 00:00: mg tablet 00 prednisone 2020- No 2mg 20 mg 1-02 tablet 00:00: 00 cephalexin 2020-1 No 1mg 500 mg 1-02 tablet 00:00: 00 fluoxetine 2020-1 No 1mg 40 mg 1-02 capsule 00:00: 00 lidocaine 5 2020-1 No 1% % topical 1-02 patch 00:00: 00 Xarelto 20 2020- No 1mg mg tablet -02 00:00: 00 atenolol 50 2020- No 5mg mg-chlortha 1-02 lidone 25 00:00: mg tablet 00 prednisone 2020- No 2mg 20 mg 1-02 tablet 00:00: 00 cephalexin 2020-1 No 1mg 500 mg 1-02 tablet 00:00: 00 fluoxetine 2020-1 No 1mg 40 mg -02 capsule 00:00: 00 atenolol 50 2020-1 No 5mg mg-chlortha 0-22 lidone 25 00:00: mg tablet 00 atenolol 50 2020-1 No 5mg mg-chlortha 0-22 lidone 25 00:00: mg tablet 00 atenolol 50 2020-1 No 5mg mg-chlortha 0-22 lidone 25 00:00: mg tablet 00 atenolol 50 2020-1 No 5mg mg-chlortha 0-22 lidone 25 00:00: mg tablet 00 atenolol 50 2020-1 No 5mg mg-chlortha 0-22 lidone 25 00:00: mg tablet 00 atenolol 50 2020-1 No 5mg mg-chlortha 0-22 lidone 25 00:00: mg tablet 00 atenolol 50 2020- No 5mg mg-chlortha 0-22 lidone 25 00:00: mg tablet 00 atenolol 50 2020-1 No 5mg mg-chlortha 0-22 lidone 25 00:00: mg tablet 00 atenolol 50 2020-1 No 5mg mg-chlortha 0-22 lidone 25 00:00: mg tablet 00 Cipro 500 1-0 No 1mg mg tablet 05-03 00:00: 00 Cipro 500 1-0 No 1mg mg tablet 05-03 00:00: 00 Cipro 500 1-0 No 1mg mg tablet 05-03 00:00: 00 Cipro 500 1-0 No 1mg mg tablet 05-03 00:00: 00 Cipro 500 1-0 No 1mg mg tablet 05-03 00:00: 00 Cipro 500 1-0 No 1mg mg tablet 05-03 00:00: 00 Cipro 500 1-0 No 1mg mg tablet 05-03 00:00: 00 Cipro 500 1-0 No 1mg mg tablet 05-03 00:00: 00 Cipro 500 1-0 No 1mg mg tablet 05-03 00:00: 00 Symbicort 1-0 No 2mcg/ac 160 mcg-4.5 9-13 tuation mcg/actuati 00:00: on HFA 00 aerosol inhaler doxycycline 1-0 No 1mg hyclate 100 9-13 mg tablet 00:00: 00 Symbicort 2021-0 No 2mcg/ac 160 mcg-4.5 9-13 tuation mcg/actuati 00:00: on HFA aerosol inhaler doxycycline 1-0 No 1mg hyclate 100 9-13 mg tablet 00:00: 00 Symbicort 1-0 No 2mcg/ac 160 mcg-4.5 9-13 tuation mcg/actuati 00:00: on HFA aerosol inhaler doxycycline 1-0 No 1mg hyclate 100 9-13 mg tablet 00:00: 00 Symbicort 1-0 No 2mcg/ac 160 mcg-4.5 9-13 tuation mcg/actuati 00:00: on HFA aerosol inhaler doxycycline 1-0 No 1mg hyclate 100 9-13 mg tablet 00:00: 00 Symbicort 1-0 No 2mcg/ac 160 mcg-4.5 9-13 tuation mcg/actuati 00:00: on HFA aerosol inhaler doxycycline 1-0 No 1mg hyclate 100 9-13 mg tablet 00:00: 00 Symbicort 1-0 No 2mcg/ac 160 mcg-4.5 9-13 tuation mcg/actuati 00:00: on HFA aerosol inhaler doxycycline 1-0 No 1mg hyclate 100 9-13 mg tablet 00:00: 00 Symbicort 1-0 No 2mcg/ac 160 mcg-4.5 9-13 tuation mcg/actuati 00:00: on HFA aerosol inhaler doxycycline 1-0 No 1mg hyclate 100 9-13 mg tablet 00:00: 00 Symbicort 1-0 No 2mcg/ac 160 mcg-4.5 9-13 tuation mcg/actuati 00:00: on HFA 00 aerosol inhaler doxycycline 1-0 No 1mg hyclate 100 9-13 mg tablet 00:00: 00 Symbicort 2021-0 No 2mcg/ac 160 mcg-4.5 9-13 tuation mcg/actuati 00:00: on HFA 00 aerosol inhaler doxycycline 1-0 No 1mg hyclate 100 9-13 mg tablet 00:00: 00 fluoxetine 2021-0 No 1mg 40 mg 9-08 capsule 00:00: 00 fluoxetine 1-0 No 1mg 40 mg 9-08 capsule 00:00: 00 fluoxetine 2021-0 No 1mg 40 mg 9-08 capsule 00:00: 00 fluoxetine 2021-0 No 1mg 40 mg 9-08 capsule 00:00: 00 fluoxetine 2021-0 No 1mg 40 mg 9-08 capsule 00:00: 00 fluoxetine 2021-0 No 1mg 40 mg 9-08 capsule 00:00: 00 fluoxetine 2021-0 No 1mg 40 mg 9-08 capsule 00:00: 00 fluoxetine 2021-0 No 1mg 40 mg 9-08 capsule 00:00: 00 fluoxetine 1-0 No 1mg 40 mg 9-08 capsule 00:00: 00 fluoxetine 1-0 No 1mg 40 mg 7-14 capsule 00:00: 00 fluoxetine 1-0 No 1mg 40 mg 7-14 capsule 00:00: 00 fluoxetine 2021-0 No 1mg 40 mg 7-14 capsule 00:00: 00 fluoxetine 2021-0 No 1mg 40 mg 7-14 capsule 00:00: 00 fluoxetine 2021-0 No 1mg 40 mg 7-14 capsule 00:00: 00 fluoxetine 2021-0 No 1mg 40 mg 7-14 capsule 00:00: 00 fluoxetine 2021-0 No 1mg 40 mg 7-14 capsule 00:00: 00 fluoxetine 1-0 No 1mg 40 mg 7-14 capsule 00:00: 00 fluoxetine 1-0 No 1mg 40 mg 7-14 capsule 00:00: 00 Dose 1-0 No Unknown 7-12 00:00: 00 USE 2020-0 No DIRECTED 7-12 PER PACKAGE 00:00: INSTRUCTION 00 S. DO NOT USE MORE THAN 1 PATCH EVERY 12 TO 24 HOURS. Xarelto 20 2020-0 No 1mg mg tablet 12 00:00: 00 atenolol 50 2020-0 No 5mg mg-chlortha 7-12 lidone 25 00:00: mg tablet 00 Dose 2020-0 No Unknown 7-12 00:00: 00 USE 2020-0 No DIRECTED 7-12 PER PACKAGE 00:00: INSTRUCTION 00 S. DO NOT USE MORE THAN 1 PATCH EVERY 12 TO 24 HOURS. Xarelto 20 1-0 No 1mg mg tablet 712 00:00: 00 atenolol 50 2021-0 No 5mg mg-chlortha 7-12 lidone 25 00:00: mg tablet 00 Dose 1-0 No Unknown 7- 00:00: 00 USE 1-0 No DIRECTED 7-12 PER PACKAGE 00:00: INSTRUCTION 00 S. DO NOT USE MORE THAN 1 PATCH EVERY 12 TO 24 HOURS. Xarelto 20 1-0 No 1mg mg tablet 7 00:00: 00 atenolol 50 1-0 No 5mg mg-chlortha 7-12 lidone 25 00:00: mg tablet 00 Dose 1-0 No Unknown 7- 00:00: 00 USE 1-0 No DIRECTED 7-12 PER PACKAGE 00:00: INSTRUCTION 00 S. DO NOT USE MORE THAN 1 PATCH EVERY 12 TO 24 HOURS. Xarelto 20 1-0 No 1mg mg tablet 02-25 00:00: 00 atenolol 50 1-0 No 5mg mg-chlortha 7-12 lidone 25 00:00: mg tablet 00 Dose 1-0 No Unknown 02-25 00:00: 00 lidocaine 5 2021-0 No 1% % topical 7-12 patch 00:00: 00 Xarelto 20 1-0 No 1mg mg tablet 02-25 00:00: 00 atenolol 50 2021-0 No 5mg mg-chlortha 7-12 lidone 25 00:00: mg tablet 00 Dose 1-0 No Unknown - 00:00: 00 lidocaine 5 2021-0 No 1% % topical 7-12 patch 00:00: 00 Xarelto 20 1-0 No 1mg mg tablet 712 00:00: 00 atenolol 50 2021-0 No 5mg mg-chlortha 7-12 lidone 25 00:00: mg tablet 00 Dose 1-0 No Unknown 02-25 00:00: 00 lidocaine 5 2021-0 No 1% % topical 7-12 patch 00:00: 00 Xarelto 20 1-0 No 1mg mg tablet 02-25 00:00: 00 atenolol 50 2021-0 No 5mg mg-chlortha 7-12 lidone 25 00:00: mg tablet 00 Dose 1-0 No Unknown 7 00:00: 00 lidocaine 5 2021-0 No 1% % topical 7-12 patch 00:00: 00 Xarelto 20 1-0 No 1mg mg tablet 02-25 00:00: 00 atenolol 50 2021-0 No 5mg mg-chlortha 7-12 lidone 25 00:00: mg tablet 00 Dose 2021-0 No Unknown 7 00:00: 00 lidocaine 5 1-0 No 1% % topical 7-12 patch 00:00: 00 Xarelto 20 1-0 No 1mg mg tablet 02-25 00:00: 00 atenolol 50 2021-0 No 5mg mg-chlortha 7-12 lidone 25 00:00: mg tablet 00 lidocaine 5 1-0 No 1% % topical 7-05 patch 00:00: 00 Xarelto 20 2021-0 No 1mg mg tablet 7 00:00: 00 atenolol 50 2021-0 No 5mg mg-chlortha 7-05 lidone 25 00:00: mg tablet 00 lidocaine 5 1-0 No 1% % topical 7-05 patch 00:00: 00 Xarelto 20 1-0 No 1mg mg tablet 7 00:00: 00 atenolol 50 2021-0 No 5mg mg-chlortha 7-05 lidone 25 00:00: mg tablet 00 lidocaine 5 1-0 No 1% % topical 7-05 patch 00:00: 00 Xarelto 20 2021-0 No 1mg mg tablet 7 00:00: 00 atenolol 50 2021-0 No 5mg mg-chlortha 7-05 lidone 25 00:00: mg tablet 00 lidocaine 5 1-0 No 1% % topical 7-05 patch 00:00: 00 Xarelto 20 2021-0 No 1mg mg tablet 705 00:00: 00 atenolol 50 2021-0 No 5mg mg-chlortha 7-05 lidone 25 00:00: mg tablet 00 lidocaine 5 1-0 No 1% % topical 7-05 patch 00:00: 00 Xarelto 20 1-0 No 1mg mg tablet 7 00:00: 00 atenolol 50 2021-0 No 5mg mg-chlortha 7-05 lidone 25 00:00: mg tablet 00 lidocaine 5 1-0 No 1% % topical 7-05 patch 00:00: 00 Xarelto 20 1-0 No 1mg mg tablet 7 00:00: 00 atenolol 50 1-0 No 5mg mg-chlortha 7-05 lidone 25 00:00: mg tablet 00 lidocaine 5 1-0 No 1% % topical 7-05 patch 00:00: 00 Xarelto 20 1-0 No 1mg mg tablet 02-18 00:00: 00 atenolol 50 1-0 No 5mg mg-chlortha 7-05 lidone 25 00:00: mg tablet 00 lidocaine 5 1-0 No 1% % topical 7-05 patch 00:00: 00 Xarelto 20 1-0 No 1mg mg tablet 02-18 00:00: 00 atenolol 50 1-0 No 5mg mg-chlortha 7-05 lidone 25 00:00: mg tablet 00 lidocaine 5 1-0 No 1% % topical 7-05 patch 00:00: 00 Xarelto 20 1-0 No 1mg mg tablet 02-18 00:00: 00 atenolol 50 1-0 No 5mg mg-chlortha 7-05 lidone 25 00:00: mg tablet 00 atenolol 50 1-0 No 5mg mg-chlortha 527 lidone 25 00:00: mg tablet 00 Xarelto 20 1-0 No 1mg mg tablet 01-10 00:00: 00 atenolol 50 1-0 No 5mg mg-chlortha 5-27 lidone 25 00:00: mg tablet 00 Xarelto 20 2020-0 No 1mg mg tablet 01-10 00:00: 00 atenolol 50 1-0 No 5mg mg-chlortha 5-27 lidone 25 00:00: mg tablet 00 Xarelto 20 2020-0 No 1mg mg tablet 01-10 00:00: 00 atenolol 50 2021-0 No 5mg mg-chlortha - lidone 25 00:00: mg tablet 00 Xarelto 20 2020-0 No 1mg mg tablet 01-10 00:00: 00 atenolol 50 1-0 No 5mg mg-chlortha 01-10 lidone 25 00:00: mg tablet Xarelto 20 2020-0 No 1mg mg tablet 01-10 00:00: 00 atenolol 50 1-0 No 5mg mg-chlortha 01-10 lidone 25 00:00: mg tablet 00 Xarelto 20 2020-0 No 1mg mg tablet 01-10 00:00: 00 atenolol 50 1-0 No 5mg mg-chlortha 01-10 lidone 25 00:00: mg tablet Xarelto 20 2020-0 No 1mg mg tablet 01-10 00:00: 00 atenolol 50 2020-0 No 5mg mg-chlortha 01-10 lidone 00:00: mg tablet Xarelto 20 2020-0 No 1mg mg tablet 01-10 00:00: 00 atenolol 50 2020-0 No 5mg mg-chlortha 01-10 lidone 25 00:00: mg tablet Xarelto 20 2020-0 No 1mg mg tablet 01-10 00:00: 00 ProAir HFA 1-0 No 12mcg/a 90 5-24 ctuatio mcg/actuati 00:00: n on aerosol 00 inhaler atenolol 50 1-0 No 5mg mg-chlortha -24 lidone 25 00:00: mg tablet 00 Xarelto 20 2020-0 No 1mg mg tablet 01-07 00:00: 00 Bromfed DM 1-0 No 10mg/5 2 mg-30 5-24 mL mg-10 mg/5 00:00: mL oral 00 syrup ProAir HFA 1-0 No 12mcg/a 90 5-24 ctuatio mcg/actuati 00:00: n on aerosol 00 inhaler atenolol 50 1-0 No 5mg mg-chlortha -24 lidone 25 00:00: mg tablet 00 Xarelto 20 2020-0 No 1mg mg tablet 5-24 00:00: 00 Bromfed DM 2020-0 No 10mg/5 2 mg-30 5-24 mL mg-10 mg/5 00:00: mL oral 00 syrup ProAir HFA 2020-0 No 12mcg/a 90 5-24 ctuatio mcg/actuati 00:00: n on aerosol 00 inhaler atenolol 50 2020-0 No 5mg mg-chlortha 5-24 lidone 25 00:00: mg tablet 00 Xarelto 20 2020-0 No 1mg mg tablet -24 00:00: 00 Bromfed DM 2020-0 No 10mg/5 2 mg-30 5-24 mL mg-10 mg/5 00:00: mL oral 00 syrup ProAir HFA 2020-0 No 12mcg/a 90 5-24 ctuatio mcg/actuati 00:00: n on aerosol 00 inhaler atenolol 50 2020-0 No 5mg mg-chlortha 5-24 lidone 25 00:00: mg tablet 00 Xarelto 20 2020-0 No 1mg mg tablet 24 00:00: 00 Bromfed DM 2020-0 No 10mg/5 2 mg-30 5-24 mL mg-10 mg/5 00:00: mL oral 00 syrup ProAir HFA 2020-0 No 12mcg/a 90 5-24 ctuatio mcg/actuati 00:00: n on aerosol 00 inhaler atenolol 50 2020-0 No 5mg mg-chlortha 5-24 lidone 25 00:00: mg tablet 00 Xarelto 20 2020-0 No 1mg mg tablet 5-24 00:00: 00 Bromfed DM 2020-0 No 10mg/5 2 mg-30 5-24 mL mg-10 mg/5 00:00: mL oral 00 syrup ProAir HFA 2020-0 No 12mcg/a 90 5-24 ctuatio mcg/actuati 00:00: n on aerosol 00 inhaler atenolol 50 2020-0 No 5mg mg-chlortha 5-24 lidone 25 00:00: mg tablet 00 Xarelto 20 2020-0 No 1mg mg tablet -24 00:00: 00 Bromfed DM 2020-0 No 10mg/5 2 mg-30 5-24 mL mg-10 mg/5 00:00: mL oral 00 syrup ProAir HFA 2020-0 No 12mcg/a 90 5-24 ctuatio mcg/actuati 00:00: n on aerosol 00 inhaler atenolol 50 2020-0 No 5mg mg-chlortha 5-24 lidone 25 00:00: mg tablet 00 Xarelto 20 2020-0 No 1mg mg tablet 5-24 00:00: 00 Bromfed DM 2020-0 No 10mg/5 2 mg-30 5-24 mL mg-10 mg/5 00:00: mL oral 00 syrup ProAir HFA 2020-0 No 12mcg/a 90 5-24 ctuatio mcg/actuati 00:00: n on aerosol 00 inhaler atenolol 50 2020-0 No 5mg mg-chlortha 5-24 lidone 25 00:00: mg tablet 00 Xarelto 20 2020-0 No 1mg mg tablet 5-24 00:00: 00 Bromfed DM 2020-0 No 10mg/5 2 mg-30 5-24 mL mg-10 mg/5 00:00: mL oral 00 syrup ProAir HFA 2020-0 No 12mcg/a 90 5-24 ctuatio mcg/actuati 00:00: n on aerosol 00 inhaler atenolol 50 2020-0 No 5mg mg-chlortha 5-24 lidone 25 00:00: mg tablet 00 Xarelto 20 2020-0 No 1mg mg tablet -24 00:00: 00 Bromfed DM 2020-0 No 10mg/5 2 mg-30 5-24 mL mg-10 mg/5 00:00: mL oral 00 syrup fluoxetine 1-0 No 1mg 40 mg 5-20 capsule 00:00: 00 fluoxetine 1-0 No 1mg 40 mg 5-20 capsule 00:00: 00 fluoxetine 2021-0 No 1mg 40 mg 5-20 capsule 00:00: 00 fluoxetine 1-0 No 1mg 40 mg 5-20 capsule 00:00: 00 fluoxetine 1-0 No 1mg 40 mg 5-20 capsule 00:00: 00 fluoxetine 2021-0 No 1mg 40 mg 5-20 capsule 00:00: 00 fluoxetine 2021-0 No 1mg 40 mg 5-20 capsule 00:00: 00 fluoxetine 2021-0 No 1mg 40 mg 5-20 capsule 00:00: 00 fluoxetine 2021-0 No 1mg 40 mg 5-20 capsule 00:00: 00 fluoxetine 2021-0 No 1mg 40 mg 3-30 capsule 00:00: 00 fluoxetine 2021-0 No 1mg 40 mg 3-30 capsule 00:00: 00 fluoxetine 2021-0 No 1mg 40 mg 3-30 capsule 00:00: 00 fluoxetine 2021-0 No 1mg 40 mg 3-30 capsule 00:00: 00 fluoxetine 2021-0 No 1mg 40 mg 3-30 capsule 00:00: 00 fluoxetine 2021-0 No 1mg 40 mg 3-30 capsule 00:00: 00 fluoxetine 2021-0 No 1mg 40 mg 3-30 capsule 00:00: 00 fluoxetine 2021-0 No 1mg 40 mg 3-30 capsule 00:00: 00 fluoxetine 2021-0 No 1mg 40 mg 3-30 capsule 00:00: 00 Xarelto 20 2021-0 No 1mg mg tablet 3-12 00:00: 00 atenolol 50 2021-0 No 5mg mg-chlortha 3-12 lidone 25 00:00: mg tablet 00 Xarelto 20 1-0 No 1mg mg tablet 312 00:00: 00 atenolol 50 2021-0 No 5mg mg-chlortha 3-12 lidone 25 00:00: mg tablet 00 Xarelto 20 1-0 No 1mg mg tablet 3-12 00:00: 00 atenolol 50 2021-0 No 5mg mg-chlortha 3-12 lidone 25 00:00: mg tablet 00 Xarelto 20 1-0 No 1mg mg tablet 3-12 00:00: 00 atenolol 50 2021-0 No 5mg mg-chlortha 3-12 lidone 25 00:00: mg tablet 00 Xarelto 20 1-0 No 1mg mg tablet 3-12 00:00: 00 atenolol 50 2021-0 No 5mg mg-chlortha 3-12 lidone 25 00:00: mg tablet 00 Xarelto 20 1-0 No 1mg mg tablet 3-12 00:00: 00 atenolol 50 1-0 No 5mg mg-chlortha 3-12 lidone 25 00:00: mg tablet Xarelto 20 1-0 No 1mg mg tablet -12 00:00: 00 atenolol 50 1-0 No 5mg mg-chlortha 3-12 lidone 25 00:00: mg tablet Xarelto 20 1-0 No 1mg mg tablet 3-12 00:00: 00 atenolol 50 1-0 No 5mg mg-chlortha 3-12 lidone 25 00:00: mg tablet 00 Xarelto 20 1-0 No 1mg mg tablet 10-26 00:00: 00 atenolol 50 1-0 No 5mg mg-chlortha 3-12 lidone 25 00:00: mg tablet 00 fluoxetine 2021-0 No 1mg 40 mg 2-02 capsule 00:00: 00 fluoxetine 2021-0 No 1mg 40 mg 2-02 capsule 00:00: 00 fluoxetine 2021-0 No 1mg 40 mg 2-02 capsule 00:00: 00 fluoxetine 2021-0 No 1mg 40 mg 2-02 capsule 00:00: 00 fluoxetine 2021-0 No 1mg 40 mg 2-02 capsule 00:00: 00 fluoxetine 2021-0 No 1mg 40 mg 2-02 capsule 00:00: 00 fluoxetine 2021-0 No 1mg 40 mg 2-02 capsule 00:00: 00 fluoxetine 2021-0 No 1mg 40 mg 2-02 capsule 00:00: 00 fluoxetine 2021-0 No 1mg 40 mg 2-02 capsule 00:00: 00 fluoxetine 2021-0 No 1mg 40 mg 1-07 capsule 00:00: 00 fluoxetine 2021-0 No 1mg 40 mg 1-07 capsule 00:00: 00 fluoxetine 2021-0 No 1mg 40 mg 1-07 capsule 00:00: 00 fluoxetine 2021-0 No 1mg 40 mg 1-07 capsule 00:00: 00 fluoxetine 2021-0 No 1mg 40 mg 1-07 capsule 00:00: 00 fluoxetine 2021-0 No 1mg 40 mg 1-07 capsule 00:00: 00 fluoxetine 2021-0 No 1mg 40 mg 1-07 capsule 00:00: 00 fluoxetine 1-0 No 1mg 40 mg -07 capsule 00:00: 00 fluoxetine 1-0 No 1mg 40 mg -07 capsule 00:00: 00 ProAir HFA 1-0 No 12mcg/a 90 -06 ctuatio mcg/actuati 00:00: n on aerosol 00 inhaler atenolol 50 1-0 No 5mg mg-chlortha - lidone 25 00:00: mg tablet 00 Xarelto 20 2020-0 No 1mg mg tablet 08-22 00:00: 00 ProAir HFA 2020-0 No 12mcg/a 90 06 ctuatio mcg/actuati 00:00: n on aerosol 00 inhaler atenolol 50 1-0 No 5mg mg-chlortha 08-22 lidone 25 00:00: mg tablet 00 Xarelto 20 1-0 No 1mg mg tablet 08-22 00:00: 00 ProAir HFA 2020-0 No 12mcg/a 90 08-22 ctuatio mcg/actuati 00:00: n on aerosol 00 inhaler atenolol 50 1-0 No 5mg mg-chlortha 08-22 lidone 25 00:00: mg tablet 00 Xarelto 20 1-0 No 1mg mg tablet 08-22 00:00: 00 ProAir HFA 2020-0 No 12mcg/a 90 08-22 ctuatio mcg/actuati 00:00: n on aerosol 00 inhaler atenolol 50 1-0 No 5mg mg-chlortha 08-22 lidone 25 00:00: mg tablet 00 Xarelto 20 1-0 No 1mg mg tablet 08-22 00:00: 00 ProAir HFA 1-0 No 12mcg/a 90 -06 ctuatio mcg/actuati 00:00: n on aerosol 00 inhaler atenolol 50 1-0 No 5mg mg-chlortha -06 lidone 25 00:00: mg tablet 00 Xarelto 20 1-0 No 1mg mg tablet 08-22 00:00: 00 ProAir HFA 1-0 No 12mcg/a 90 06 ctuatio mcg/actuati 00:00: n on aerosol 00 inhaler atenolol 50 2020-0 No 5mg mg-chlortha - lidone 25 00:00: mg tablet 00 Xarelto 20 2020-0 No 1mg mg tablet 08-22 00:00: 00 ProAir HFA 2020-0 No 12mcg/a 90 -06 ctuatio mcg/actuati 00:00: n on aerosol 00 inhaler atenolol 50 2020-0 No 5mg mg-chlortha 08-22 lidone 25 00:00: mg tablet 00 Xarelto 20 2020-0 No 1mg mg tablet 08-22 00:00: 00 ProAir HFA 2020-0 No 12mcg/a 90 08-22 ctuatio mcg/actuati 00:00: n on aerosol 00 inhaler atenolol 50 2020-0 No 5mg mg-chlortha 08-22 lidone 25 00:00: mg tablet 00 Xarelto 20 2020-0 No 1mg mg tablet 08-22 00:00: 00 ProAir HFA 2020-0 No 12mcg/a 90 08-22 ctuatio mcg/actuati 00:00: n on aerosol 00 inhaler atenolol 50 2020-0 No 5mg mg-chlortha 08-22 lidone 25 00:00: mg tablet 00 Xarelto 20 2020-0 No 1mg mg tablet 08-22 00:00: 00 azithromyci 2020-1 No 1mg n 250 mg 2-16 tablet 00:00: 00 prednisone 2020-1 No mg 20 mg 2-16 tablet 00:00: 00 azithromyci 2020-1 No 1mg n 250 mg 2-16 tablet 00:00: 00 prednisone 2020-1 No mg 20 mg 2-16 tablet 00:00: 00 azithromyci 2020-1 No 1mg n 250 mg 2-16 tablet 00:00: 00 prednisone 2020-1 No mg 20 mg 2-16 tablet 00:00: 00 azithromyci 2020-1 No 1mg n 250 mg 2-16 tablet 00:00: 00 prednisone 2020-1 No mg 20 mg 2-16 tablet 00:00: 00 azithromyci 2020-1 No 1mg n 250 mg 2-16 tablet 00:00: 00 prednisone 2019- No mg 20 mg 2-16 tablet 00:00: 00 azithromyci 2019- No 1mg n 250 mg 2-16 tablet 00:00: 00 prednisone 2019- No mg 20 mg 2-16 tablet 00:00: 00 azithromyci 2019- No 1mg n 250 mg 2-16 tablet 00:00: 00 prednisone 2019- No mg 20 mg 2-16 tablet 00:00: 00 azithromyci 2019- No 1mg n 250 mg 2-16 tablet 00:00: 00 prednisone 2019- No mg 20 mg 2-16 tablet 00:00: 00 azithromyci 2019- No 1mg n 250 mg 2-16 tablet 00:00: 00 prednisone 2019- No mg 20 mg 2-16 tablet 00:00: 00 ProAir HFA 2019-08 No 12mcg/a 90 2-08 ctuatio mcg/actuati 00:00: n on aerosol 00 inhaler atenolol 50 2019-08 No 5mg mg-chlortha 2-08 lidone 25 00:00: mg tablet 00 Xarelto 20 2019-08 No 1mg mg tablet 2-08 00:00: 00 Tessalon 2019-08 No 12mg Perles 100 2-08 mg capsule 00:00: 00 ProAir HFA 2019-08 No 12mcg/a 90 2-08 ctuatio mcg/actuati 00:00: n on aerosol 00 inhaler atenolol 50 2019-08 No 5mg mg-chlortha 2-08 lidone 25 00:00: mg tablet 00 Xarelto 20 2019-08 No 1mg mg tablet 2-08 00:00: 00 Tessalon 2019-08 No 12mg Perles 100 2-08 mg capsule 00:00: 00 ProAir HFA 2019-08 No 12mcg/a 90 2-08 ctuatio mcg/actuati 00:00: n on aerosol 00 inhaler atenolol 50 2019-08 No 5mg mg-chlortha 2-08 lidone 25 00:00: mg tablet 00 Xarelto 20 2019-08 No 1mg mg tablet 2-08 00:00: 00 Tessalon 2019-08 No 12mg Perles 100 2-08 mg capsule 00:00: 00 ProAir HFA 2019-08 No 12mcg/a 90 2-08 ctuatio mcg/actuati 00:00: n on aerosol 00 inhaler atenolol 50 2019-08 No 5mg mg-chlortha 2-08 lidone 25 00:00: mg tablet 00 Xarelto 20 2019-08 No 1mg mg tablet 2-08 00:00: 00 Tessalon 2019-08 No 12mg Perles 100 2-08 mg capsule 00:00: 00 ProAir HFA 2019-08 No 12mcg/a 90 2-08 ctuatio mcg/actuati 00:00: n on aerosol 00 inhaler atenolol 50 2019-08 No 5mg mg-chlortha 2-08 lidone 25 00:00: mg tablet 00 Xarelto 20 2019-08 No 1mg mg tablet 2-08 00:00: 00 Tessalon 2019-08 No 12mg Perles 100 2-08 mg capsule 00:00: 00 ProAir HFA 2019-08 No 12mcg/a 90 2-08 ctuatio mcg/actuati 00:00: n on aerosol 00 inhaler atenolol 50 2019-08 No 5mg mg-chlortha 2-08 lidone 25 00:00: mg tablet 00 Xarelto 20 2019-08 No 1mg mg tablet 2-08 00:00: 00 Tessalon 2019-08 No 12mg Perles 100 2-08 mg capsule 00:00: 00 ProAir HFA 2019-08 No 12mcg/a 90 2-08 ctuatio mcg/actuati 00:00: n on aerosol 00 inhaler atenolol 50 2019-08 No 5mg mg-chlortha 2-08 lidone 25 00:00: mg tablet 00 Xarelto 20 2019-08 No 1mg mg tablet 2-08 00:00: 00 Tessalon 2019-08 No 12mg Perles 100 2-08 mg capsule 00:00: 00 ProAir HFA 2019-08 No 12mcg/a 90 2-08 ctuatio mcg/actuati 00:00: n on aerosol 00 inhaler atenolol 50 2019-08 No 5mg mg-chlortha 2-08 lidone 25 00:00: mg tablet 00 Xarelto 20 2019-08 No 1mg mg tablet 2-08 00:00: 00 Tessalon 2019- No 12mg Perles 100 2-08 mg capsule 00:00: 00 ProAir HFA 2019- No 12mcg/a 90 2-08 ctuatio mcg/actuati 00:00: n on aerosol 00 inhaler atenolol 50 2019- No 5mg mg-chlortha 2-08 lidone 25 00:00: mg tablet 00 Xarelto 20 2019- No 1mg mg tablet 2-08 00:00: 00 Tessalon 2019- No 12mg Perles 100 2-08 mg capsule 00:00: 00 fluoxetine 2019-1 No 1mg 40 mg 2-04 capsule 00:00: 00 fluoxetine 2019-1 No 1mg 40 mg 2-04 capsule 00:00: 00 fluoxetine 2019-1 No 1mg 40 mg 2-04 capsule 00:00: 00 fluoxetine 2019-1 No 1mg 40 mg 2-04 capsule 00:00: 00 fluoxetine 2019-1 No 1mg 40 mg 2-04 capsule 00:00: 00 fluoxetine 2019-1 No 1mg 40 mg 2-04 capsule 00:00: 00 fluoxetine 2019-1 No 1mg 40 mg 2-04 capsule 00:00: 00 fluoxetine 2019-1 No 1mg 40 mg 2-04 capsule 00:00: 00 fluoxetine 2019-1 No 1mg 40 mg 2-04 capsule 00:00: 00 fluoxetine 2019-1 No 1mg 40 mg 1-09 capsule 00:00: 00 fluoxetine 2019-1 No 1mg 40 mg 1-09 capsule 00:00: 00 fluoxetine 2019-1 No 1mg 40 mg 1-09 capsule 00:00: 00 fluoxetine 2019-1 No 1mg 40 mg 1-09 capsule 00:00: 00 fluoxetine 2019-1 No 1mg 40 mg 1-09 capsule 00:00: 00 fluoxetine 2019-1 No 1mg 40 mg 1-09 capsule 00:00: 00 fluoxetine 2019-1 No 1mg 40 mg 1-09 capsule 00:00: 00 fluoxetine 2019-1 No 1mg 40 mg 1-09 capsule 00:00: 00 fluoxetine 2019-1 No 1mg 40 mg 1-09 capsule 00:00: 00 fluoxetine 2019-1 No 1mg 40 mg 0-09 capsule 00:00: 00 fluoxetine 2019-1 No 1mg 40 mg 0-09 capsule 00:00: 00 fluoxetine 2020-1 No 1mg 40 mg 0-09 capsule 00:00: 00 fluoxetine 2020-1 No 1mg 40 mg 0-09 capsule 00:00: 00 fluoxetine 2020-1 No 1mg 40 mg 0-09 capsule 00:00: 00 fluoxetine 2020-1 No 1mg 40 mg 0-09 capsule 00:00: 00 fluoxetine 2020-1 No 1mg 40 mg 0-09 capsule 00:00: 00 fluoxetine 2020-1 No 1mg 40 mg 0-09 capsule 00:00: 00 fluoxetine 2020-1 No 1mg 40 mg 0-09 capsule 00:00: 00 atenolol 50 2020-0 No 5mg mg-chlortha 05-08 lidone 25 00:00: mg tablet 00 Xarelto 20 2020-0 No 1mg mg tablet 05-08 00:00: 00 prednisone 2020-0 No mg 20 mg -22 tablet 00:00: 00 azithromyci 2020-0 No mg n 250 mg 05-08 tablet 00:00: 00 atenolol 50 2020-0 No 5mg mg-chlortha 05-08 lidone 25 00:00: mg tablet 00 Xarelto 20 2020-0 No 1mg mg tablet 05-08 00:00: 00 prednisone 2020-0 No mg 20 mg -22 tablet 00:00: 00 azithromyci 2020-0 No mg n 250 mg - tablet 00:00: 00 atenolol 50 2020-0 No 5mg mg-chlortha 05-08 lidone 25 00:00: mg tablet 00 Xarelto 20 2020-0 No 1mg mg tablet 05-08 00:00: 00 prednisone 2020-0 No mg 20 mg 9-22 tablet 00:00: 00 azithromyci 2020-0 No mg n 250 mg - tablet 00:00: 00 atenolol 50 2020-0 No 5mg mg-chlortha 05-08 lidone 25 00:00: mg tablet 00 Xarelto 20 2020-0 No 1mg mg tablet 05-08 00:00: 00 prednisone 2020-0 No mg 20 mg 9-22 tablet 00:00: 00 azithromyci 2020-0 No mg n 250 mg - tablet 00:00: 00 atenolol 50 2020-0 No 5mg mg-chlortha 05-08 lidone 25 00:00: mg tablet 00 Xarelto 20 2020-0 No 1mg mg tablet 05-08 00:00: 00 prednisone 2020-0 No mg 20 mg - tablet 00:00: 00 azithromyci 2020-0 No mg n 250 mg 05-08 tablet 00:00: 00 atenolol 50 2020-0 No 5mg mg-chlortha 05-08 lidone 25 00:00: mg tablet 00 Xarelto 20 2020-0 No 1mg mg tablet 05-08 00:00: 00 prednisone 2020-0 No mg 20 mg - tablet 00:00: 00 azithromyci 2020-0 No mg n 250 mg 05-08 tablet 00:00: 00 atenolol 50 2020-0 No 5mg mg-chlortha 05-08 lidone 25 00:00: mg tablet 00 Xarelto 20 2020-0 No 1mg mg tablet 05-08 00:00: 00 prednisone 2020-0 No mg 20 mg - tablet 00:00: 00 azithromyci 2020-0 No mg n 250 mg 05-08 tablet 00:00: 00 atenolol 50 2020-0 No 5mg mg-chlortha 05-08 lidone 25 00:00: mg tablet 00 Xarelto 20 2020-0 No 1mg mg tablet 05-08 00:00: 00 prednisone 2020-0 No mg 20 mg - tablet 00:00: 00 azithromyci 2020-0 No mg n 250 mg 05-08 tablet 00:00: 00 atenolol 50 2020-0 No 5mg mg-chlortha 05-08 lidone 25 00:00: mg tablet 00 Xarelto 20 2020-0 No 1mg mg tablet 05-08 00:00: 00 prednisone 2020-0 No mg 20 mg - tablet 00:00: 00 azithromyci 2020-0 No mg n 250 mg - tablet 00:00: 00 fluoxetine 2020-0 No 1mg 40 mg 9-10 capsule 00:00: 00 fluoxetine 2020-0 No 1mg 40 mg 9-10 capsule 00:00: 00 fluoxetine 2020-0 No 1mg 40 mg 9-10 capsule 00:00: 00 fluoxetine 2020-0 No 1mg 40 mg 9-10 capsule 00:00: 00 fluoxetine 2020-0 No 1mg 40 mg 9-10 capsule 00:00: 00 fluoxetine 2020-0 No 1mg 40 mg 9-10 capsule 00:00: 00 fluoxetine 2020-0 No 1mg 40 mg 9-10 capsule 00:00: 00 fluoxetine 2020-0 No 1mg 40 mg 9-10 capsule 00:00: 00 fluoxetine 2020-0 No 1mg 40 mg 9-10 capsule 00:00: 00 Xarelto 20 2020-0 No 1mg mg tablet 04-11 00:00: 00 atenolol 50 2020-0 No 5mg mg-chlortha 04-11 lidone 25 00:00: mg tablet 00 gabapentin 2020-0 No 1mg 300 mg 04-11 capsule 00:00: 00 Xarelto 20 2020-0 No 1mg mg tablet 04-11 00:00: 00 atenolol 50 2020-0 No 5mg mg-chlortha 04-11 lidone 25 00:00: mg tablet gabapentin 2020-0 No 1mg 300 mg 04-11 capsule 00:00: 00 Xarelto 20 2020-0 No 1mg mg tablet 04-11 00:00: 00 atenolol 50 2020-0 No 5mg mg-chlortha 04-11 lidone 00:00: mg tablet gabapentin 2020-0 No 1mg 300 mg 04-11 capsule 00:00: 00 Xarelto 20 2020-0 No 1mg mg tablet 04-11 00:00: 00 atenolol 50 2020-0 No 5mg mg-chlortha 04-11 lidone 25 00:00: mg tablet gabapentin 2020-0 No 1mg 300 mg 04-11 capsule 00:00: 00 Xarelto 20 2020-0 No 1mg mg tablet 04-11 00:00: 00 atenolol 50 2020-0 No 5mg mg-chlortha 04-11 lidone 25 00:00: mg tablet 00 gabapentin 2020-0 No 1mg 300 mg 04-11 capsule 00:00: 00 Xarelto 20 2020-0 No 1mg mg tablet 04-11 00:00: 00 atenolol 50 2020-0 No 5mg mg-chlortha 04-11 lidone 25 00:00: mg tablet 00 gabapentin 2020-0 No 1mg 300 mg 04-11 capsule 00:00: 00 Xarelto 20 2020-0 No 1mg mg tablet 04-11 00:00: 00 atenolol 50 2020-0 No 5mg mg-chlortha 04-11 lidone 25 00:00: mg tablet gabapentin 2020-0 No 1mg 300 mg 04-11 capsule 00:00: 00 Xarelto 20 2020-0 No 1mg mg tablet 04-11 00:00: 00 atenolol 50 2020-0 No 5mg mg-chlortha 04-11 lidone 25 00:00: mg tablet gabapentin 2020-0 No 1mg 300 mg 8 capsule 00:00: 00 Xarelto 20 2020-0 No 1mg mg tablet 04-11 00:00: 00 atenolol 50 2020-0 No 5mg mg-chlortha 04-11 lidone 00:00: mg tablet gabapentin 2020-0 No 1mg 300 mg 04-11 capsule 00:00: 00 Xarelto 20 2020-0 No 1mg mg tablet 04-03 00:00: 00 Xarelto 20 2020-0 No 1mg mg tablet 04-03 00:00: 00 Xarelto 20 2020-0 No 1mg mg tablet 04-03 00:00: 00 Xarelto 20 2020-0 No 1mg mg tablet 04-03 00:00: 00 Xarelto 20 2020-0 No 1mg mg tablet 04-03 00:00: 00 Xarelto 20 2020-0 No 1mg mg tablet 04-03 00:00: 00 Xarelto 20 2020-0 No 1mg mg tablet 04-03 00:00: 00 Xarelto 20 2020-0 No 1mg mg tablet 04-03 00:00: 00 Xarelto 20 2020-0 No 1mg mg tablet 04-03 00:00: 00 hydroxyzine 2020-0 No 1mg HCl 10 mg 8-06 tablet 00:00: 00 fluoxetine 2020-0 No 1mg 40 mg 8-06 capsule 00:00: 00 gabapentin 2020-0 No 1mg 100 mg 8-06 capsule 00:00: 00 hydroxyzine 2020-0 No 1mg HCl 10 mg 8-06 tablet 00:00: 00 fluoxetine 2020-0 No 1mg 40 mg 8-06 capsule 00:00: 00 gabapentin 2020-0 No 1mg 100 mg 8-06 capsule 00:00: 00 hydroxyzine 2020-0 No 1mg HCl 10 mg 8-06 tablet 00:00: 00 fluoxetine 2020-0 No 1mg 40 mg 8-06 capsule 00:00: 00 gabapentin 2020-0 No 1mg 100 mg 8-06 capsule 00:00: 00 hydroxyzine 2020-0 No 1mg HCl 10 mg 8-06 tablet 00:00: 00 fluoxetine 2020-0 No 1mg 40 mg 8-06 capsule 00:00: 00 gabapentin 2020-0 No 1mg 100 mg 8-06 capsule 00:00: 00 hydroxyzine 2020-0 No 1mg HCl 10 mg 8-06 tablet 00:00: 00 hydroxyzine 2020-0 No 1mg HCl 10 mg 8-06 tablet 00:00: 00 fluoxetine 2020-0 No 1mg 40 mg 8-06 capsule 00:00: 00 gabapentin 2020-0 No 1mg 100 mg 8-06 capsule 00:00: 00 fluoxetine 2020-0 No 1mg 40 mg 8-06 capsule 00:00: 00 gabapentin 2020-0 No 1mg 100 mg 8-06 capsule 00:00: 00 hydroxyzine 2020-0 No 1mg HCl 10 mg 8-06 tablet 00:00: 00 fluoxetine 2020-0 No 1mg 40 mg 8-06 capsule 00:00: 00 gabapentin 2020-0 No 1mg 100 mg 8-06 capsule 00:00: 00 hydroxyzine 2020-0 No 1mg HCl 10 mg 8-06 tablet 00:00: 00 fluoxetine 2020-0 No 1mg 40 mg 8-06 capsule 00:00: 00 gabapentin 2020-0 No 1mg 100 mg 8-06 capsule 00:00: 00 hydroxyzine 2020-0 No 1mg HCl 10 mg 8-06 tablet 00:00: 00 fluoxetine 2020-0 No 1mg 40 mg 8-06 capsule 00:00: 00 gabapentin 2020-0 No 1mg 100 mg 8-06 capsule 00:00: 00 hydroxyzine 2020-0 No 1mg HCl 10 mg 7-23 tablet 00:00: 00 fluoxetine 2020-0 No 1mg 40 mg 7-23 capsule 00:00: 00 hydroxyzine 2020-0 No 1mg HCl 10 mg 7-23 tablet 00:00: 00 fluoxetine 2020-0 No 1mg 40 mg 7-23 capsule 00:00: 00 hydroxyzine 2020-0 No 1mg HCl 10 mg 7-23 tablet 00:00: 00 fluoxetine 2020-0 No 1mg 40 mg 7-23 capsule 00:00: 00 hydroxyzine 2020-0 No 1mg HCl 10 mg 7-23 tablet 00:00: 00 fluoxetine 2020-0 No 1mg 40 mg 7-23 capsule 00:00: 00 hydroxyzine 2020-0 No 1mg HCl 10 mg 7-23 tablet 00:00: 00 fluoxetine 2020-0 No 1mg 40 mg 7-23 capsule 00:00: 00 hydroxyzine 2020-0 No 1mg HCl 10 mg 7-23 tablet 00:00: 00 fluoxetine 2020-0 No 1mg 40 mg 7-23 capsule 00:00: 00 hydroxyzine 2020-0 No 1mg HCl 10 mg 7-23 tablet 00:00: 00 fluoxetine 2020-0 No 1mg 40 mg 7-23 capsule 00:00: 00 hydroxyzine 2020-0 No 1mg HCl 10 mg 7-23 tablet 00:00: 00 fluoxetine 2020-0 No 1mg 40 mg 7-23 capsule 00:00: 00 hydroxyzine 2020-0 No 1mg HCl 10 mg 7-23 tablet 00:00: 00 fluoxetine 2020-0 No 1mg 40 mg 7-23 capsule 00:00: 00 Voltaren 1 2020-0 No 1% % topical 7-21 gel 00:00: 00 gabapentin 2020-0 No 1mg 100 mg 7-21 capsule 00:00: 00 Voltaren 1 2020-0 No 1% % topical 7-21 gel 00:00: 00 gabapentin 2020-0 No 1mg 100 mg 7-21 capsule 00:00: 00 Voltaren 1 2020-0 No 1% % topical 7-21 gel 00:00: 00 gabapentin 2020-0 No 1mg 100 mg 7-21 capsule 00:00: 00 Voltaren 1 2020-0 No 1% % topical 7-21 gel 00:00: 00 gabapentin 2020-0 No 1mg 100 mg 7-21 capsule 00:00: 00 Voltaren 1 2020-0 No 1% % topical 7-21 gel 00:00: 00 gabapentin 2020-0 No 1mg 100 mg 7-21 capsule 00:00: 00 Voltaren 1 2020-0 No 1% % topical 7-21 gel 00:00: 00 gabapentin 2020-0 No 1mg 100 mg 7-21 capsule 00:00: 00 Voltaren 1 2020-0 No 1% % topical 7-21 gel 00:00: 00 gabapentin 2020-0 No 1mg 100 mg 7-21 capsule 00:00: 00 Voltaren 1 2020-0 No 1% % topical 7-21 gel 00:00: 00 gabapentin 2020-0 No 1mg 100 mg 7-21 capsule 00:00: 00 Voltaren 1 2020-0 No 1% % topical 7-21 gel 00:00: 00 gabapentin 2020-0 No 1mg 100 mg 7-21 capsule 00:00: 00 hydroxyzine 2020-0 No 1mg HCl 10 mg 7-13 tablet 00:00: 00 fluoxetine 2020-0 No 1mg 40 mg 7-13 capsule 00:00: 00 hydroxyzine 2020-0 No 1mg HCl 10 mg 7-13 tablet 00:00: 00 fluoxetine 2020-0 No 1mg 40 mg 7-13 capsule 00:00: 00 hydroxyzine 2020-0 No 1mg HCl 10 mg 7-13 tablet 00:00: 00 fluoxetine 2020-0 No 1mg 40 mg 7-13 capsule 00:00: 00 hydroxyzine 2020-0 No 1mg HCl 10 mg 7-13 tablet 00:00: 00 fluoxetine 2020-0 No 1mg 40 mg 7-13 capsule 00:00: 00 hydroxyzine 2020-0 No 1mg HCl 10 mg 7-13 tablet 00:00: 00 fluoxetine 2020-0 No 1mg 40 mg 7-13 capsule 00:00: 00 hydroxyzine 2020-0 No 1mg HCl 10 mg 7-13 tablet 00:00: 00 fluoxetine 2020-0 No 1mg 40 mg 7-13 capsule 00:00: 00 hydroxyzine 2020-0 No 1mg HCl 10 mg 7-13 tablet 00:00: 00 fluoxetine 2020-0 No 1mg 40 mg 7-13 capsule 00:00: 00 hydroxyzine 2020-0 No 1mg HCl 10 mg 7-13 tablet 00:00: 00 fluoxetine 2020-0 No 1mg 40 mg 7-13 capsule 00:00: 00 hydroxyzine 2020-0 No 1mg HCl 10 mg 7-13 tablet 00:00: 00 fluoxetine 2020-0 No 1mg 40 mg 7-13 capsule 00:00: 00 atenolol 50 2020-0 No 5mg mg-chlortha 6-22 lidone 25 00:00: mg tablet 00 atenolol 50 2020-0 No 5mg mg-chlortha 6-22 lidone 25 00:00: mg tablet 00 atenolol 50 2020-0 No 5mg mg-chlortha 6- lidone 25 00:00: mg tablet 00 atenolol 50 2020-0 No 5mg mg-chlortha 6- lidone 25 00:00: mg tablet atenolol 50 2020-0 No 5mg mg-chlortha 6- lidone 25 00:00: mg tablet 00 atenolol 50 2020-0 No 5mg mg-chlortha 6-22 lidone 25 00:00: mg tablet atenolol 50 2020-0 No 5mg mg-chlortha 6- lidone 25 00:00: mg tablet atenolol 50 2020-0 No 5mg mg-chlortha 6-22 lidone 25 00:00: mg tablet atenolol 50 2020-0 No 5mg mg-chlortha 6- lidone 25 00:00: mg tablet 00 hydroxyzine 2020-0 No 1mg HCl 10 mg 6-10 tablet 00:00: 00 fluoxetine 2020-0 No 1mg 40 mg 6-10 capsule 00:00: 00 hydroxyzine 2020-0 No 1mg HCl 10 mg 6-10 tablet 00:00: 00 fluoxetine 2020-0 No 1mg 40 mg 6-10 capsule 00:00: 00 hydroxyzine 2020-0 No 1mg HCl 10 mg 6-10 tablet 00:00: 00 hydroxyzine 2020-0 No 1mg HCl 10 mg 6-10 tablet 00:00: 00 fluoxetine 2020-0 No 1mg 40 mg 6-10 capsule 00:00: 00 fluoxetine 2020-0 No 1mg 40 mg 6-10 capsule 00:00: 00 hydroxyzine 2020-0 No 1mg HCl 10 mg 6-10 tablet 00:00: 00 fluoxetine 2020-0 No 1mg 40 mg 6-10 capsule 00:00: 00 hydroxyzine 2020-0 No 1mg HCl 10 mg 6-10 tablet 00:00: 00 fluoxetine 2020-0 No 1mg 40 mg 6-10 capsule 00:00: 00 hydroxyzine 2020-0 No 1mg HCl 10 mg 6-10 tablet 00:00: 00 fluoxetine 2020-0 No 1mg 40 mg 6-10 capsule 00:00: 00 hydroxyzine 2020-0 No 1mg HCl 10 mg 6-10 tablet 00:00: 00 fluoxetine 2020-0 No 1mg 40 mg 6-10 capsule 00:00: 00 hydroxyzine 2020-0 No 1mg HCl 10 mg 6-10 tablet 00:00: 00 fluoxetine 2020-0 No 1mg 40 mg 6-10 capsule 00:00: 00 Xarelto 20 2020-0 No 1mg mg tablet 01-16 00:00: 00 Xarelto 20 2020-0 No 1mg mg tablet 01-16 00:00: 00 Xarelto 20 2020-0 No 1mg mg tablet 01-16 00:00: 00 Xarelto 20 2020-0 No 1mg mg tablet 01-16 00:00: 00 Xarelto 20 2020-0 No 1mg mg tablet 01-16 00:00: 00 Xarelto 20 2020-0 No 1mg mg tablet 01-16 00:00: 00 Xarelto 20 2020-0 No 1mg mg tablet 01-16 00:00: 00 Xarelto 20 2019-0 No 1mg mg tablet 01-16 00:00: 00 Xarelto 20 2020-0 No 1mg mg tablet 01-16 00:00: 00 fluoxetine 2020-0 No 1mg 40 mg 5-26 capsule 00:00: 00 fluoxetine 2020-0 No 1mg 40 mg 5-26 capsule 00:00: 00 fluoxetine 2020-0 No 1mg 40 mg 5-26 capsule 00:00: 00 fluoxetine 2020-0 No 1mg 40 mg 5-26 capsule 00:00: 00 fluoxetine 2020-0 No 1mg 40 mg 5-26 capsule 00:00: 00 fluoxetine 2020-0 No 1mg 40 mg 5-26 capsule 00:00: 00 fluoxetine 2020-0 No 1mg 40 mg 5-26 capsule 00:00: 00 fluoxetine 2020-0 No 1mg 40 mg 5-26 capsule 00:00: 00 fluoxetine 2020-0 No 1mg 40 mg 5-26 capsule 00:00: 00 valacyclovi 2020-0 No 1gram r 1 gram 5-22 tablet 00:00: 00 Advair 2020-0 No 1mcg/do Diskus 250 5-22 se mcg-50 00:00: mcg/dose 00 powder for inhalation atenolol 50 2019-0 No 5mg mg-chlortha 5-22 lidone 25 00:00: mg tablet 00 Xarelto 20 2019-0 No 1mg mg tablet 5-22 00:00: 00 valacyclovi 2020-0 No 1gram r 1 gram 5-22 tablet 00:00: 00 fluoxetine 2020-0 No 1mg 40 mg 5-22 capsule 00:00: 00 fluoxetine 2020-0 No 1mg 40 mg 5-22 capsule 00:00: 00 ProAir HFA 2020-0 No 12mcg/a 90 5-22 ctuatio mcg/actuati 00:00: n on aerosol 00 inhaler Advair 2020-0 No 1mcg/do Diskus 250 5-22 se mcg-50 00:00: mcg/dose 00 powder for inhalation atenolol 50 2019-0 No 5mg mg-chlortha 5-22 lidone 25 00:00: mg tablet 00 Xarelto 20 2019-0 No 1mg mg tablet 01-05 00:00: 00 valacyclovi 2020-0 No 1gram r 1 gram 5-22 tablet 00:00: 00 fluoxetine 2020-0 No 1mg 40 mg 5-22 capsule 00:00: 00 ProAir HFA 2020-0 No 12mcg/a 90 5-22 ctuatio mcg/actuati 00:00: n on aerosol 00 inhaler Advair 2020-0 No 1mcg/do Diskus 250 5-22 se mcg-50 00:00: mcg/dose 00 powder for inhalation atenolol 50 2019-0 No 5mg mg-chlortha 5-22 lidone 25 00:00: mg tablet 00 Xarelto 20 2019-0 No 1mg mg tablet 01-05 00:00: 00 valacyclovi 2020-0 No 1gram r 1 gram 5-22 tablet 00:00: 00 fluoxetine 2020-0 No 1mg 40 mg 5-22 capsule 00:00: 00 ProAir HFA 2020-0 No 12mcg/a 90 5-22 ctuatio mcg/actuati 00:00: n on aerosol 00 inhaler Advair 2020-0 No 1mcg/do Diskus 250 5-22 se mcg-50 00:00: mcg/dose 00 powder for inhalation atenolol 50 2019-0 No 5mg mg-chlortha 5-22 lidone 25 00:00: mg tablet 00 Xarelto 20 2019-0 No 1mg mg tablet 01-05 00:00: 00 valacyclovi 2020-0 No 1gram r 1 gram 5-22 tablet 00:00: 00 fluoxetine 2020-0 No 1mg 40 mg 5-22 capsule 00:00: 00 ProAir HFA 2020-0 No 12mcg/a 90 5-22 ctuatio mcg/actuati 00:00: n on aerosol 00 inhaler Advair 2020-0 No 1mcg/do Diskus 250 5-22 se mcg-50 00:00: mcg/dose 00 powder for inhalation atenolol 50 2019-0 No 5mg mg-chlortha 5-22 lidone 25 00:00: mg tablet 00 Xarelto 20 2019-0 No 1mg mg tablet 01-05 00:00: 00 valacyclovi 2020-0 No 1gram r 1 gram 5-22 tablet 00:00: 00 fluoxetine 2020-0 No 1mg 40 mg 5-22 capsule 00:00: 00 ProAir HFA 2020-0 No 12mcg/a 90 5-22 ctuatio mcg/actuati 00:00: n on aerosol 00 inhaler Advair 2020-0 No 1mcg/do Diskus 250 5-22 se mcg-50 00:00: mcg/dose 00 powder for inhalation atenolol 50 2019-0 No 5mg mg-chlortha 5-22 lidone 25 00:00: mg tablet 00 Xarelto 20 2019-0 No 1mg mg tablet 01-05 00:00: 00 valacyclovi 2020-0 No 1gram r 1 gram 5-22 tablet 00:00: 00 fluoxetine 2020-0 No 1mg 40 mg 5-22 capsule 00:00: 00 ProAir HFA 2020-0 No 12mcg/a 90 5-22 ctuatio mcg/actuati 00:00: n on aerosol 00 inhaler Advair 2020-0 No 1mcg/do Diskus 250 5-22 se mcg-50 00:00: mcg/dose 00 powder for inhalation atenolol 50 2019-0 No 5mg mg-chlortha 5-22 lidone 25 00:00: mg tablet 00 ProAir HFA 2020-0 No 12mcg/a 90 5-22 ctuatio mcg/actuati 00:00: n on aerosol 00 inhaler Xarelto 20 2019-0 No 1mg mg tablet 01-05 00:00: 00 valacyclovi 2020-0 No 1gram r 1 gram 5-22 tablet 00:00: 00 fluoxetine 2020-0 No 1mg 40 mg 5-22 capsule 00:00: 00 Advair 2020-0 No 1mcg/do Diskus 250 5-22 se mcg-50 00:00: mcg/dose 00 powder for inhalation ProAir HFA 2020-0 No 12mcg/a 90 5-22 ctuatio mcg/actuati 00:00: n on aerosol 00 inhaler Advair 2020-0 No 1mcg/do Diskus 250 5-22 se mcg-50 00:00: mcg/dose 00 powder for inhalation atenolol 50 2020-0 No 5mg mg-chlortha 5-22 lidone 25 00:00: mg tablet 00 atenolol 50 2020-0 No 5mg mg-chlortha 5-22 lidone 25 00:00: mg tablet 00 Xarelto 20 2020-0 No 1mg mg tablet 01-05 00:00: 00 valacyclovi 2020-0 No 1gram r 1 gram - tablet 00:00: 00 fluoxetine 2020-0 No 1mg 40 mg 5-22 capsule 00:00: 00 Xarelto 20 2020-0 No 1mg mg tablet 01-05 00:00: 00 ProAir HFA 2020-0 No 12mcg/a 90 5-22 ctuatio mcg/actuati 00:00: n on aerosol 00 inhaler prednisone 2020-0 No 2mg 20 mg 5-11 tablet 00:00: 00 Augmentin 2020-0 No 1mg 875 mg-125 5-11 mg tablet 00:00: 00 prednisone 2020-0 No 2mg 20 mg 5-11 tablet 00:00: 00 Augmentin 2020-0 No 1mg 875 mg-125 5-11 mg tablet 00:00: 00 prednisone 2020-0 No 2mg 20 mg 5-11 tablet 00:00: 00 Augmentin 2020-0 No 1mg 875 mg-125 5-11 mg tablet 00:00: 00 prednisone 2020-0 No 2mg 20 mg 5-11 tablet 00:00: 00 Augmentin 2020-0 No 1mg 875 mg-125 5-11 mg tablet 00:00: 00 prednisone 2020-0 No 2mg 20 mg 5-11 tablet 00:00: 00 Augmentin 2020-0 No 1mg 875 mg-125 5-11 mg tablet 00:00: 00 prednisone 2020-0 No 2mg 20 mg 5-11 tablet 00:00: 00 Augmentin 2020-0 No 1mg 875 mg-125 5-11 mg tablet 00:00: 00 prednisone 2020-0 No 2mg 20 mg 5-11 tablet 00:00: 00 Augmentin 2020-0 No 1mg 875 mg-125 5-11 mg tablet 00:00: 00 prednisone 2020-0 No 2mg 20 mg 5-11 tablet 00:00: 00 Augmentin 2020-0 No 1mg 875 mg-125 5-11 mg tablet 00:00: 00 prednisone 2020-0 No 2mg 20 mg 5-11 tablet 00:00: 00 Augmentin 2020-0 No 1mg 875 mg-125 5-11 mg tablet 00:00: 00 Fluoxetine Fluoxetine 2020-0 Yes Leigha 1 tablet Common HCl HCl 4-13 [facility] 00:[facility]: - [facility] 00 [facility] Valacyclovi Valacyclovi 2020-0 2020- No Leigha 1 tablet Common r HCl r HCl 4-13 05-13 [facility] 00:00: 00:00 - [facility] :00 [facility] Xarelto Xarelto Yes Leigha 1 tablet Comm on Erwin with food [facility] ProAir HFA ProAir HFA Yes Leigha 1 puff as Common Erwin needed [facility] Immunizations Ordered Immunization Filled Immunization Date Status Commen ts Source Name Name Flucelvax - Flucelvax - 2019-08-29 Completed Common Spiri t multidose vial multidose vial 00:00:00 [facility] Vital Signs Vital Name Observation Time Observation Value Comments Source BP Systolic 2022-06-12 10:12:00 BP Diastolic 2022-06-12 10:12:00 Weight Measured 2022-06-12 10:12:00 170.80 pounds Height Measured 2022-06-12 10:12:00 64.00 inches Body Temperature 2022-06-12 10:12:00 Heart Rate 2022-06-12 10:12:00 Respiratory Rate 2022-06-12 10:12:00 BP Systolic 2022-04-22 13:53:00 131 mm[Hg] BP Diastolic 2022-04-22 13:53:00 73 mm[Hg] Weight Measured 2022-04-22 13:53:00 170.80 pounds Height Measured 2022-04-22 13:53:00 64.00 inches Body Temperature 2022-04-22 13:53:00 97.90 degrees Heart Rate 2022-04-22 13:53:00 74.00 /min Respiratory Rate 2022-04-22 13:53:00 16.00 /min BP Systolic 2022-03-03 18:28:00 BP Diastolic 2022-03-03 18:28:00 Weight Measured 2022-03-03 18:28:00 170.00 pounds Height Measured 2022-03-03 18:28:00 64.00 inches Body Temperature 2022-03-03 18:28:00 Heart Rate 2022-03-03 18:28:00 Respiratory Rate 2022-03-03 18:28:00 BP Systolic 2021-12-28 14:04:00 BP Diastolic 2021-12-28 14:04:00 Weight Measured 2021-12-28 14:04:00 170.00 pounds Height Measured 2021-12-28 14:04:00 64.00 inches Body Temperature 2021-12-28 14:04:00 Heart Rate 2021-12-28 14:04:00 Respiratory Rate 2021-12-28 14:04:00 BP Systolic 2021-06-18 15:55:00 146 mm[Hg] BP Diastolic 2021-06-18 15:55:00 83 mm[Hg] Weight Measured 2021-06-18 15:55:00 169.60 pounds Height Measured 2021-06-18 15:55:00 64.50 inches Body Temperature 2021-06-18 15:55:00 98.80 degrees Heart Rate 2021-06-18 15:55:00 96.00 /min Respiratory Rate 2021-06-18 15:55:00 BP Systolic 2021-04-29 16:05:00 BP Diastolic 2021-04-29 16:05:00 Weight Measured 2021-04-29 16:05:00 170.00 pounds Height Measured 2021-04-29 16:05:00 64.50 inches Body Temperature 2021-04-29 16:05:00 Heart Rate 2021-04-29 16:05:00 Respiratory Rate 2021-04-29 16:05:00 BP Systolic 2021-04-08 16:50:00 BP Diastolic 2021-04-08 16:50:00 Weight Measured 2021-04-08 16:50:00 170.00 pounds Height Measured 2021-04-08 16:50:00 64.50 inches Body Temperature 2021-04-08 16:50:00 Heart Rate 2021-04-08 16:50:00 Respiratory Rate 2021-04-08 16:50:00 BP Systolic 2021-02-18 17:02:00 121 mm[Hg] BP Diastolic 2021-02-18 17:02:00 63 mm[Hg] Weight Measured 2021-02-18 17:02:00 170.00 pounds Height Measured 2021-02-18 17:02:00 64.50 inches Body Temperature 2021-02-18 17:02:00 98.30 degrees Heart Rate 2021-02-18 17:02:00 74.00 /min Respiratory Rate 2021-02-18 17:02:00 BP Systolic 2021-01-03 08:35:00 BP Diastolic 2021-01-03 08:35:00 Weight Measured 2021-01-03 08:35:00 170.00 pounds Height Measured 2021-01-03 08:35:00 64.50 inches Body Temperature 2021-01-03 08:35:00 Heart Rate 2021-01-03 08:35:00 Respiratory Rate 2021-01-03 08:35:00 BP Systolic 2020-03-06 17:03:00 124 mm[Hg] BP Diastolic 2020-03-06 17:03:00 72 mm[Hg] Weight Measured 2020-03-06 17:03:00 165.60 pounds Height Measured 2020-03-06 17:03:00 64.50 inches Body Temperature 2020-03-06 17:03:00 98.10 degrees Heart Rate 2020-03-06 17:03:00 74.00 /min Respiratory Rate 2020-03-06 17:03:00 16.00 /min BP Systolic 2020-01-06 14:10:00 153 mm[Hg] BP Diastolic 2020-01-06 14:10:00 82 mm[Hg] Weight Measured 2020-01-06 14:10:00 164.60 pounds Height Measured 2020-01-06 14:10:00 64.50 inches Body Temperature 2020-01-06 14:10:00 98.40 degrees Heart Rate 2020-01-06 14:10:00 84.00 /min Respiratory Rate 2020-01-06 14:10:00 Procedures This patient has no known procedures. Plan of Care Planned Activity Planned Date Details Comments Source Goal Plan of Care Note [code = 02815-7] Goal Plan of Care Note [code = 30126-5] Goal Plan of Care Note [code = 51612-8] Goal Plan of Care Note [code = 78205-9] Goal Plan of Care Note [code = 29905-9] Goal Plan of Care Note [code = 18979-4] Goal Plan of Care Note [code = 15964-6] Goal Plan of Care Note [code = 35393-0] Goal Plan of Care Note [code = 36159-7] Goal Plan of Care Note [code = 72222-9] Goal Plan of Care Note [code = 00471-3] Goal Plan of Care Note [code = 23236-3] Goal Plan of Care Note [code = 41441-6] Goal Plan of Care Note [code = 08097-9] Goal Plan of Care Note [code = 86179-4] Goal Plan of Care Note [code = 03750-6] Goal Plan of Care Note [code = 45979-1] Goal Plan of Care Note [code = 85423-6] Goal Plan of Care Note [code = 52879-7] Goal Plan of Care Note [code = 87701-3] Goal Plan of Care Note [code = 10543-0] Goal Plan of Care Note [code = 98524-7] Goal Plan of Care Note [code = 72494-3] Goal Plan of Care Note [code = 42542-7] Goal Plan of Care Note [code = 93683-2] Goal Plan of Care Note [code = 07036-8] Goal Plan of Care Note [code = 70942-7] Goal Plan of Care Note [code = 66895-8] Goal Plan of Care Note [code = 44610-3] Goal Plan of Care Note [code = 44956-0] Goal Plan of Care Note [code = 42429-4] Goal Plan of Care Note [code = 01551-6] Goal Plan of Care Note [code = 60043-5] Goal Plan of Care Note [code = 15023-3] Goal Plan of Care Note [code = 14574-1] Goal Plan of Care Note [code = 70224-1] Goal Plan of Care Note [code = 45132-1] Goal Plan of Care Note [code = 79467-3] Goal Plan of Care Note [code = 97731-2] Goal Plan of Care Note [code = 06088-9] Goal Plan of Care Note [code = 45451-6] Goal Plan of Care Note [code = 15727-4] Goal Plan of Care Note [code = 45919-1] Goal Plan of Care Note [code = 85100-3] Goal Plan of Care Note [code = 44688-5] Goal Plan of Care Note [code = 33256-2] Goal Plan of Care Note [code = 44211-3] Goal Plan of Care Note [code = 46489-6] Goal Plan of Care Note [code = 82207-2] Goal Plan of Care Note [code = 44957-3] Goal Plan of Care Note [code = 91522-9] Goal Plan of Care Note [code = 00503-3] Goal Plan of Care Note [code = 35672-9] Goal Plan of Care Note [code = 41572-4] Goal Plan of Care Note [code = 81960-3] Goal Plan of Care Note [code = 64959-0] Goal Plan of Care Note [code = 52491-2] Goal Plan of Care Note [code = 94581-4] Goal Plan of Care Note [code = 31522-7] Goal Plan of Care Note [code = 40943-1] Goal Plan of Care Note [code = 90927-9] Goal Plan of Care Note [code = 38635-0] Goal Plan of Care Note [code = 88264-9] Goal Plan of Care Note [code = 82731-7] Goal Plan of Care Note [code = 68238-6] Goal Plan of Care Note [code = 22617-1] Goal Plan of Care Note [code = 31479-3] Goal Plan of Care Note [code = 06428-1] Goal Plan of Care Note [code = 97290-4] Goal Plan of Care Note [code = 50419-4] Goal Plan of Care Note [code = 95175-6] Goal Plan of Care Note [code = 23254-9] Goal Plan of Care Note [code = 71319-3] Goal Plan of Care Note [code = 10482-9] Goal Plan of Care Note [code = 64683-0] Goal Plan of Care Note [code = 22978-8] Goal Plan of Care Note [code = 19848-7] Goal Plan of Care Note [code = 19377-3] Goal Plan of Care Note [code = 92701-0] Goal Plan of Care Note [code = 86043-8] Goal Plan of Care Note [code = 15685-1] Goal Plan of Care Note [code = 60374-3] Goal Plan of Care Note [code = 55486-5] Goal Plan of Care Note [code = 52005-9] Goal Plan of Care Note [code = 33164-4] Goal Plan of Care Note [code = 74326-1] Goal Plan of Care Note [code = 56473-0] Goal Plan of Care Note [code = 66970-5] Goal Plan of Care Note [code = 17780-3] Goal Plan of Care Note [code = 08558-1] Goal Plan of Care Note [code = 16188-6] Goal Plan of Care Note [code = 20677-1] Goal Plan of Care Note [code = 19160-0] Goal Plan of Care Note [code = 06764-7] Goal Plan of Care Note [code = 24746-7] Goal Plan of Care Note [code = 11874-1] Goal Plan of Care Note [code = 71606-0] Goal Plan of Care Note [code = 28849-3] Goal Plan of Care Note [code = 03284-9] Goal Plan of Care Note [code = 18575-7] Goal Plan of Care Note [code = 58485-7] Goal Plan of Care Note [code = 15872-8] Goal Plan of Care Note [code = 38161-8] Goal Plan of Care Note [code = 81486-3] Goal Plan of Care Note [code = 73180-3] Goal Plan of Care Note [code = 84961-0] Goal Plan of Care Note [code = 64090-3] Goal Plan of Care Note [code = 66317-7] Goal Plan of Care Note [code = 68418-2] Goal Plan of Care Note [code = 39771-3] Goal Plan of Care Note [code = 88378-9] Goal Plan of Care Note [code = 58748-2] Goal Plan of Care Note [code = 78805-3] Goal Plan of Care Note [code = 28898-1] Goal Plan of Care Note [code = 58929-1] Goal Plan of Care Note [code = 87439-6] Goal Plan of Care Note [code = 80096-4] Goal Plan of Care Note [code = 99129-6] Goal Plan of Care Note [code = 70227-4] Goal Plan of Care Note [code = 59838-6] Goal Plan of Care Note [code = 81305-7] Goal Plan of Care Note [code = 13185-6] Goal Plan of Care Note [code = 14876-2] Goal Plan of Care Note [code = 30551-9] Goal Plan of Care Note [code = 00562-3] Goal Plan of Care Note [code = 01718-3] Goal Plan of Care Note [code = 45528-0] Goal Plan of Care Note [code = 58499-2] Goal Plan of Care Note [code = 17581-9] Goal Plan of Care Note [code = 15358-9] Goal Plan of Care Note [code = 05866-0] Goal Plan of Care Note [code = 96127-0] Goal Plan of Care Note [code = 03064-4] Goal Plan of Care Note [code = 25353-3] Goal Plan of Care Note [code = 92362-3] Goal Plan of Care Note [code = 99834-1] Goal Plan of Care Note [code = 10466-2] Goal Plan of Care Note [code = 05517-9] Goal Plan of Care Note [code = 91906-9] Goal Plan of Care Note [code = 38758-0] Goal Plan of Care Note [code = 70514-6] Goal Plan of Care Note [code = 26583-2] Goal Plan of Care Note [code = 29632-3] Goal Plan of Care Note [code = 15427-3] Goal Plan of Care Note [code = 54871-3] Goal Plan of Care Note [code = 72721-7] Goal Plan of Care Note [code = 53927-7] Goal Plan of Care Note [code = 87575-3] Goal Plan of Care Note [code = 28502-7] Goal Plan of Care Note [code = 32194-4] Goal Plan of Care Note [code = 49717-5] Goal Plan of Care Note [code = 88400-1] Goal Plan of Care Note [code = 05695-9] Goal Plan of Care Note [code = 85515-0] Goal Plan of Care Note [code = 88128-5] Goal Plan of Care Note [code = 17217-3] Goal Plan of Care Note [code = 54228-1] Goal Plan of Care Note [code = 91097-5] Goal Plan of Care Note [code = 28187-8] Goal Plan of Care Note [code = 55240-3] Goal Plan of Care Note [code = 35312-4] Goal Plan of Care Note [code = 36550-5] Goal Plan of Care Note [code = 35143-7] Goal Plan of Care Note [code = 96854-9] Goal Plan of Care Note [code = 96676-5] Goal Plan of Care Note [code = 97265-5] Goal Plan of Care Note [code = 55158-2] Goal Plan of Care Note [code = 06455-0] Goal Plan of Care Note [code = 89119-0] Goal Plan of Care Note [code = 01305-4] Goal Plan of Care Note [code = 89838-3] Goal Plan of Care Note [code = 38697-5] Goal Plan of Care Note [code = 95075-3] Goal Plan of Care Note [code = 81356-4] Goal Plan of Care Note [code = 54883-8] Goal Plan of Care Note [code = 83988-1] Goal Plan of Care Note [code = 29749-3] Goal Plan of Care Note [code = 77821-0] Goal Plan of Care Note [code = 12460-7] Goal Plan of Care Note [code = 89881-5] Goal Plan of Care Note [code = 83513-7] Goal Plan of Care Note [code = 75694-1] Goal Plan of Care Note [code = 76984-3] Goal Plan of Care Note [code = 99276-5] Goal Plan of Care Note [code = 05547-0] Goal Plan of Care Note [code = 78481-6] Goal Plan of Care Note [code = 01881-5] Goal Plan of Care Note [code = 55568-6] Goal Plan of Care Note [code = 20327-6] Goal Plan of Care Note [code = 84218-0] Goal Plan of Care Note [code = 73570-7] Goal Plan of Care Note [code = 83329-7] Goal Plan of Care Note [code = 31331-4] Goal Plan of Care Note [code = 21488-8] Goal Plan of Care Note [code = 31848-3] Goal Plan of Care Note [code = 85097-9] Goal Plan of Care Note [code = 99489-8] Goal Plan of Care Note [code = 21599-7] Goal Plan of Care Note [code = 29912-7] Goal Plan of Care Note [code = 72457-2] Goal Plan of Care Note [code = 74035-2] Goal Plan of Care Note [code = 61045-0] Goal Plan of Care Note [code = 75740-5] Goal Plan of Care Note [code = 58767-7] Goal Plan of Care Note [code = 14886-3] Goal Plan of Care Note [code = 15151-0] Goal Plan of Care Note [code = 85191-2] Goal Plan of Care Note [code = 08540-9] Goal Plan of Care Note [code = 73227-1] Goal Plan of Care Note [code = 61670-4] Goal Plan of Care Note [code = 90828-7] Goal Plan of Care Note [code = 43774-4] Goal Plan of Care Note [code = 76609-1] Goal Plan of Care Note [code = 77297-2] Goal Plan of Care Note [code = 16071-9] Goal Plan of Care Note [code = 86371-0] Goal Plan of Care Note [code = 29606-8] Goal Plan of Care Note [code = 16642-5] Goal Plan of Care Note [code = 79457-9] Goal Plan of Care Note [code = 60723-0] Goal Plan of Care Note [code = 26582-4] Goal Plan of Care Note [code = 06008-6] Goal Plan of Care Note [code = 33536-6] Goal Plan of Care Note [code = 25780-7] Goal Plan of Care Note [code = 67376-9] Goal Plan of Care Note [code = 03123-4] Goal Plan of Care Note [code = 54149-1] Goal Plan of Care Note [code = 21645-7] Goal Plan of Care Note [code = 21803-9] Goal Plan of Care Note [code = 80418-7] Goal Plan of Care Note [code = 11621-9] Goal Plan of Care Note [code = 80731-8] Goal Plan of Care Note [code = 79067-4] Goal Plan of Care Note [code = 97888-8] Goal Plan of Care Note [code = 69054-0] Goal Plan of Care Note [code = 90741-5] Goal Plan of Care Note [code = 66516-3] Goal Plan of Care Note [code = 05058-9] Goal Plan of Care Note [code = 03538-6] Goal Plan of Care Note [code = 79013-6] Goal Plan of Care Note [code = 20992-0] Goal Plan of Care Note [code = 84413-8] Goal Plan of Care Note [code = 15265-9] Goal Plan of Care Note [code = 22628-9] Goal Plan of Care Note [code = 19396-5] Goal Plan of Care Note [code = 23700-9] Goal Plan of Care Note [code = 30046-6] Goal Plan of Care Note [code = 94738-2] Goal Plan of Care Note [code = 67729-1] Goal Plan of Care Note [code = 09011-9] Goal Plan of Care Note [code = 30754-6] Goal Plan of Care Note [code = 70974-4] Goal Plan of Care Note [code = 90730-3] Goal Plan of Care Note [code = 58563-3] Goal Plan of Care Note [code = 32194-9] Goal Plan of Care Note [code = 01099-2] Goal Plan of Care Note [code = 21049-0] Goal Plan of Care Note [code = 30859-4] Goal Plan of Care Note [code = 29155-7] Goal Plan of Care Note [code = 15734-0] Goal Plan of Care Note [code = 40423-5] Goal Plan of Care Note [code = 10203-5] Goal Plan of Care Note [code = 69264-2] Goal Plan of Care Note [code = 72646-2] Goal Plan of Care Note [code = 45910-6] Goal Plan of Care Note [code = 85408-0] Goal Plan of Care Note [code = 14366-1] Goal Plan of Care Note [code = 84726-8] Goal Plan of Care Note [code = 28115-2] Goal Plan of Care Note [code = 29873-8] Goal Plan of Care Note [code = 79344-0] Encounters Start End Encounter Admission Attending Care Care Encounter Source Date/Time Date/Time Type Type Clinicians Facility Department ID 2021-09-11 Outpatient Oskar [facility] [id number] Common 11:00:07 Leigha [address] [facility] 2022-08-26 2022-08-26 Outpatient [id number]- [id number] m9i79z-x 00:00:00 00:00:00 Visit t85w-5l7n 53a-4f6c-a -m2fc-65r 8de-14s523 93759vi47 89cc45 2022-07-15 2022-07-15 Outpatient [facility] [id number] [facility] 16:28:17 16:28:17 1129 F Emile 2022-07-15 2022-07-15 Outpatient [id number]- [id number] cb 5mr764-m 00:00:00 00:00:00 Visit lq9k-18ut q5x-33zn-t -ok15-217 f27-1811i7 8z81lf71u 3fd17a 2022-06-12 2022-06-12 Outpatient 68xb0ppq- [id number] ba9dju-4 00:00:00 00:00:00 Visit 9h4s-0mb3 b4u-7la8-7 -9702-629 702-24770v 42k8503g5 7360a2 2022-05-22 2022-05-22 Outpatient e1d760b8- [id number] f4 x515s8-8 00:00:00 00:00:00 Visit 410c-4ee9 10c-4ee9-a -ka0v-845 n8q-26878x 46m7422y2 4553b0 2022-05-19 2022-05-19 Outpatient SFA 09767-6 Kevin Alas 14:06:47 14:06:47 1003 F Emile 2022-05-19 2022-05-19 Outpatient zw3h4fce- [id number] ea 7e4vfn-f 00:00:00 00:00:00 Visit u7f9-1321 5o9-9460-p -abf2-b44 bf2-b449aa 1gb238534 131628 4475-09-20 2022-05-06 Outpatient [id number]- [id number] e8 237x3l-7 00:00:00 00:00:00 Visit 4daa-435d daa-435d-a -a62q-6aj 68d-6dfd59 k92ky9nx2 aa8ec5 2022-05-01 2022-05-01 Outpatient 0qj9rk8v- [id number] 3d y4oi6r-q 00:00:00 00:00:00 Visit e21x-9w5z 66c-4c3d-8 -3k16-pl2 m16-hi7350 847r1srp8 f1ebf4 2022-04-22 2022-04-22 Outpatient [id number]- [id number] q39479-6 00:00:00 00:00:00 Visit 0wq3-81i5 df2-45e1-a -k020-3z6 960-8c62f4 8l0s95657 t80329 2022-03-03 2022-03-03 Outpatient pu664g73- [id number] cb 293y01-8 00:00:00 00:00:00 Visit 9r3y-80ox e5q-84ek-m -ez2e-y47 s7n-s214l7 2j08etw9r 4aaf4d 2019-12-15 2019-12-15 [facility] 30 [id number] Common 08:56:00 08:56:00 [facility] 2019-12-14 2019-12-14 [facility] 30 [id number] Common 09:34:00 09:34:00 [facility] 2019-11-28 2019-11-28 [facility] 30 [id number] Common 17:02:00 17:02:[address] [facility] [address] [facility] 2019-09-26 2019-09-26 Outpatient [facility] 29 [id number] Common 13:44:00 13:44:[address] [facility] [address] [facility] 2019-09-16 2019-09-16 Outpatient [facility] 29 [id number] Common 11:35:00 11:35:[address] [facility] [address] [facility] 2019-08-29 2019-08-29 Outpatient [facility] 29 [id number] Common 13:20:00 13:20:00 t [facility] [address] [facility] Results Test Description Test Time Test Comments Results Result Comments Source HEPATITIS C GENOTYPE 2022-04-25 15:58:53 Test Item Value Reference Range Interpretation Comme nts HEPATITIS C GENOTYPE (test code = 1a Assay methodology is real-time PCR 21257) amplification o f the 5'UTR ylqAW4u regions of the HCV sea me utilizing the Collado RealTime HCVGen otype II assay and Collado HCV Genotype Pl us assay. Possiblegenotypes include 1a, 1b, 2, 3, 4, 5, and 6. HEPATITIS C [id number] 00:00:00 Test Item Value Reference Range Interpretation Comments HEPATITIS C GENOTYPE (test code = 1a 75692) HEPATITIS C [id number] 00:00:00 Test Item Value Reference Range Interpretation Comments HEPATITIS C GENOTYPE (test code = 1a 02298) HEPATITIS C [id number] 00:00:00 Test Item Value Reference Range Interpretation Comments HEPATITIS C GENOTYPE (test code = 1a 30038) HEPATITIS C [id number] 00:00:00 Test Item Value Reference Range Interpretation Comments HEPATITIS C GENOTYPE (test code = 1a 87829) HEPATITIS C [id number] 00:00:00 Test Item Value Reference Range Interpretation Comments HEPATITIS C GENOTYPE (test code = 1a 16213) HEPATITIS C [id number] 00:00:00 Test Item Value Reference Range Interpretation Comments HEPATITIS C GENOTYPE (test code = 1a 88062) HEPATITIS C [id number] 00:00:00 Test Item Value Reference Range Interpretation Comments HEPATITIS C GENOTYPE (test code = 1a 77551) HEPATITIS C [id number] 00:00:00 Test Item Value Reference Range Interpretation Comments HEPATITIS C GENOTYPE (test code = 1a 99130) HEPATITIS C [id number] 00:00:00 Test Item Value Reference Range Interpretation Comments HEPATITIS C GENOTYPE (test code = 1a 53127) HEPATITIS C [id number] 00:00:00 Test Item Value Reference Range Interpretation Comments HEPATITIS C GENOTYPE (test code = 1a 37331) HEPATITIS C [id number] 00:00:00 Test Item Value Reference Range Interpretation Comments HEPATITIS C GENOTYPE (test code = 1a 82040) HEPATITIS C [id number] 00:00:00 Test Item Value Reference Range Interpretation Comments HEPATITIS C GENOTYPE (test code = 1a 67901) HEPATITIS C [id number] 00:00:00 Test Item Value Reference Range Interpretation Comments HEPATITIS C GENOTYPE (test code = 1a 29423) HEPATITIS C [id number] 00:00:00 Test Item Value Reference Range Interpretation Comments HEPATITIS C GENOTYPE (test code = 1a 14523) HCV RNA, PCR [id number] 19:13:49 Test Item Value Reference Range Interpretation Comments HCV RNA, PCR [id number] IU/ML H QUANT (test code = 4571) HCV VIRAL LOG 6.745 LOG IU/ML H HCV RNA wa s detected, (test code = indicating curr ent HCV 13280) infection. Rang e of quantitation is 15-100,000,000 IU/mL, (1.176-8.000 lo gIU/mL). Samples with HC V RNA detected below the limit ofquantit ation are reported as <15 IU/mL. Assay methodology ispolymerase ch ain reaction (PCR) using the Charles Sophie 6800/8800system . The expected range is NOT DETECTED. UNLES S OTHERWISE INDIC ATED, ALL TESTING PER FORMED [facility], [facility]. [address] [place] [address] LABORATOR Y DIRECTOR: ADALI BRUSH M.D. CLIA NUMBER [id number] CAP ACCREDITATION N O. [id number] HEPATITIS C REFLEX [id number] 03:58:36 Test Item Value Reference Range Interpretation Comments HEPATITIS C ANTIBODY (test code = REACTIVE NON-REACTIVE A 4675) HEMOGLOBIN [id number] 03:18:28 Test Item Value Reference Range Interpretation Comments HEMOGLOBIN A1c (test 9.0 % 4.2-5.6 H [employer]ES code = 59954) ASSOCIATION IDELINES FOR HGB A1C: PREDIABETES/INC REASED RISK . . . . . . . 5.7 -6.4% DIAGNOSIS OF DI ABETES . . . . . . . . . >=6 .5% WITH CONFIRMATION OR APPROPRIATE SYMPTOMS NOTE: ASSAY MAY BE AFFECTED BY HEMOGLOBINOPATH IES (SICKLE CELL ANEMIA, S- C DISEASE, OTHERS) OR MACRINA FICIALLY LOWERED BY DECR EASED RED CELL SURVIVAL ( HEMOLYTIC ANEMIAS, BLOOD LOSS, ETC.). CONSIDER ALTERN ATE TESTING OR LABORATORY C ONSULTATION. CBC W/AUTO DIFF WITH [id number] 03:09:53 Test Item Value Reference Range Interpretation Comments WBC (test code = 7.2 K/UL 3.5-11.0 1001) RBC (test code = 4.88 M/UL 3.80-5.40 1002) HEMOGLOBIN (test code 14.7 G/DL 11.5-15.5 = 1003) HEMATOCRIT (test code 42.1 % 34.0-45.0 = 1004) MCV (test code = 86.3 fL 80.0-99.0 1005) MCH (test code = 30.1 PG 25.0-33.0 1006) MCHC (test code = 34.9 G/DL 31.0-36.0 1007) RDW (test code = 12.6 % 11.5-15.0 1038) NEUTROPHILS (test 54.7 % code = 1008) LYMPHOCYTES (test 33.4 % code = 1010) MONOCYTES (test code 8.6 % = 1011) EOSINOPHILS (test 2.1 % code = 1012) BASOPHILS (test code 1.1 % = 1013) IMMATURE GRANULOCYTES 0.1 % (test code = 1036) NUCLEATED RBCS (test 0.0 /100 WBC'S See_Comment [Aut omated code = 1065) message] The sy stem which generated this result transmitted reference range : 0.0. The refere nce range was not u sed to interpret th is result as normal/abnormal . PLATELET COUNT (test 241 K/UL 130-400 code = 1015) ABSOLUTE NEUTROPHILS 3.95 K/UL 1.50-7.50 (test code = 1066) ABSOLUTE LYMPHOCYTES 2.41 K/UL 1.00-4.00 (test code = 1067) ABSOLUTE MONOCYTES 0.62 K/UL 0.20-1.00 (test code = 1068) ABSOLUTE EOSINOPHILS 0.15 K/UL 0.00-0.50 (test code = 1040) ABSOLUTE BASOPHILS 0.08 K/UL 0.00-0.20 (test code = 1069) ABS IMMATURE 0.01 K/UL 0.00-0.10 GRANULOCYTES (test code = 1020) ABS NUCLEATED RBCS 0.00 K/UL 0.00-0.11 (test code = 75619) PROTHROMBIN TIME (PT)2022-04-23 03:07:41 Test Item Value Reference Range Interpretation Comments PROTHROMBIN TIME 15.7 SECONDS 12.5-14.7 H (PT) (test code = 1402) INR (test code = 1.2 SEE BELOW CURRENT 04813) RECOMMENDATIONS ARE FOR AN INR OF 2 .0-3.0 FOR ALL PATIENT S ON VITAMIN K ANTAG ONISTS, EXCEPT THOSE WI TH PROSTHETIC HEAR T VALVES, FOR WHO M INR OF 2.5-3.5 IS RECOMMENDED. [id number] 03:07:41 Test Item Value Reference Range Interpretation Comments PTT (test code = 1403) 31.9 SECONDS 25.2-40.0 COMPREHENSIVE METABOLIC [id number] 02:58:52 Test Item Value Reference Range Interpretation Comments GLUCOSE (test code = 171 MG/DL 70-99 H 2216) BUN (test code = 28 MG/DL 8-23 H 2207) CREATININE (test 0.84 MG/DL 0.60-1.30 code = 2214) eGFR (2020 CKD-EPI) 79 ML/MIN/1.73 >60 (test code = 29937) CALC BUN/CREAT (test 33 RATIO 6-28 H code = 2235) SODIUM (test code = 138 MEQ/L 427-715 0179) POTASSIUM (test code 3.4 MEQ/L 3.5-5.4 L = 8) CHLORIDE (test code 98 MEQ/L 95-107 = 2215) CARBON DIOXIDE (test 29 MEQ/L 19-31 code = 2206) CALCIUM (test code = 10.4 MG/DL 8.5-10.5 2208) PROTEIN, TOTAL (test 7.5 G/DL 6.1-8.3 code = 2229) ALBUMIN (test code = 4.3 G/DL 3.5-5.2 2200) CALC GLOBULIN (test 3.2 G/DL 1.9-3.7 code = 2240) CALC A/G RATIO (test 1.3 RATIO 1.0-2.6 code = 2234) BILIRUBIN, TOTAL 0.6 MG/DL See_Comment [Automated message] (test code = 220) The syste m which generated this result transmit tawanda reference range : <=1.2. The refe rence range was not u sed to interpret th is result as normal/abnormal . ALKALINE PHOSPHATASE 81 U/L 40-140 (test code = 220) AST (test code = 44 U/L 9-40 H 2217) ALT (test code = 57 U/L 5-40 H 2218) LIPID [id number] 02:58:52 Test Item Value Reference Range Interpretation Comments CHOLESTEROL (test 177 MG/DL <200 code = 2210) TRIGLYCERIDES (test 173 MG/DL <150 H code = 2232) HDL CHOLESTEROL (test 45 MG/DL >39 code = 2220) CALC LDL CHOL (test 103 MG/DL <100 H NOTE: C ALCULATED LDL code = 2237) IS BASED ON GERMAN-CASTILLO METHOD WHICHINCLUDES ADJUSTABLE TRIGLYCERIDE:VL DL CHOLESTEROL RAT IO.THIS FACTOR VARIES B Y MEASURED TRIGLY CERIDE AND NON-HDLCHOL ESTEROL CONCENTRATIONS WITH INCREASED CALCU LATED LDL SEENIN HIGH ER TRIGLYCERIDE OR LOWER NON-HDL SPECIME NS. FOR MOREINFORMATION , SEE CLIENT ANNOUNCE MENT AT [email or web address] RISK RATIO LDL/HDL 2.29 RATIO <3.22 (test code = 2238) CBC W/AUTO [id number] 00:00:00 Test Item Value Reference Range Interpretation Comments WBC (test code = 1001) 7.2 K/UL RBC (test code = 1002) 4.88 M/UL HEMOGLOBIN (test code = 1003) 14.7 G/DL HEMATOCRIT (test code = 1004) 42.1 % MCV (test code = 1005) 86.3 fL MCH (test code = 1006) 30.1 PG MCHC (test code = 1007) 34.9 G/DL RDW (test code = 1038) 12.6 % NEUTROPHILS (test code = 1008) 54.7 % LYMPHOCYTES (test code = 1010) 33.4 % MONOCYTES (test code = 1011) 8.6 % EOSINOPHILS (test code = 1012) 2.1 % BASOPHILS (test code = 1013) 1.1 % IMMATURE GRANULOCYTES (test 0.1 % code = 1036) NUCLEATED RBCS (test code = 0.0 /100WBC'S 1065) PLATELET COUNT (test code = 241 K/UL 1015) ABSOLUTE NEUTROPHILS (test code 3.95 K/UL = 1066) ABSOLUTE LYMPHOCYTES (test code 2.41 K/UL = 1067) ABSOLUTE MONOCYTES (test code = 0.62 K/UL 1068) ABSOLUTE EOSINOPHILS (test code 0.15 K/UL = 1040) ABSOLUTE BASOPHILS (test code = 0.08 K/UL 1069) ABS IMMATURE GRANULOCYTES (test 0.01 K/UL code = 1020) ABS NUCLEATED RBCS (test code = 0.00 K/UL 14193) CBC W/AUTO [id number] 00:00:00 Test Item Value Reference Range Interpretation Comments WBC (test code = 1001) 7.2 K/UL RBC (test code = 1002) 4.88 M/UL HEMOGLOBIN (test code = 1003) 14.7 G/DL HEMATOCRIT (test code = 1004) 42.1 % MCV (test code = 1005) 86.3 fL MCH (test code = 1006) 30.1 PG MCHC (test code = 1007) 34.9 G/DL RDW (test code = 1038) 12.6 % NEUTROPHILS (test code = 1008) 54.7 % LYMPHOCYTES (test code = 1010) 33.4 % MONOCYTES (test code = 1011) 8.6 % EOSINOPHILS (test code = 1012) 2.1 % BASOPHILS (test code = 1013) 1.1 % IMMATURE GRANULOCYTES (test 0.1 % code = 1036) NUCLEATED RBCS (test code = 0.0 /100WBC'S 1065) PLATELET COUNT (test code = 241 K/UL 1015) ABSOLUTE NEUTROPHILS (test code 3.95 K/UL = 1066) ABSOLUTE LYMPHOCYTES (test code 2.41 K/UL = 1067) ABSOLUTE MONOCYTES (test code = 0.62 K/UL 1068) ABSOLUTE EOSINOPHILS (test code 0.15 K/UL = 1040) ABSOLUTE BASOPHILS (test code = 0.08 K/UL 1069) ABS IMMATURE GRANULOCYTES (test 0.01 K/UL code = 1020) ABS NUCLEATED RBCS (test code = 0.00 K/UL 78682) CBC W/AUTO [id number] 00:00:00 Test Item Value Reference Range Interpretation Comments WBC (test code = 1001) 7.2 K/UL RBC (test code = 1002) 4.88 M/UL HEMOGLOBIN (test code = 1003) 14.7 G/DL HEMATOCRIT (test code = 1004) 42.1 % MCV (test code = 1005) 86.3 fL MCH (test code = 1006) 30.1 PG MCHC (test code = 1007) 34.9 G/DL RDW (test code = 1038) 12.6 % NEUTROPHILS (test code = 1008) 54.7 % LYMPHOCYTES (test code = 1010) 33.4 % MONOCYTES (test code = 1011) 8.6 % EOSINOPHILS (test code = 1012) 2.1 % BASOPHILS (test code = 1013) 1.1 % IMMATURE GRANULOCYTES (test 0.1 % code = 1036) NUCLEATED RBCS (test code = 0.0 /100WBC'S 1065) PLATELET COUNT (test code = 241 K/UL 1015) ABSOLUTE NEUTROPHILS (test code 3.95 K/UL = 1066) ABSOLUTE LYMPHOCYTES (test code 2.41 K/UL = 1067) ABSOLUTE MONOCYTES (test code = 0.62 K/UL 1068) ABSOLUTE EOSINOPHILS (test code 0.15 K/UL = 1040) ABSOLUTE BASOPHILS (test code = 0.08 K/UL 1069) ABS IMMATURE GRANULOCYTES (test 0.01 K/UL code = 1020) ABS NUCLEATED RBCS (test code = 0.00 K/UL 93359) COMPREHENSIVE METABOLIC [id number] 00:00:00 Test Item Value Reference Range Interpretation Comments GLUCOSE (test code = 2217) 171 MG/DL BUN (test code = 2208) 28 MG/DL CREATININE (test code = 2214) 0.84 MG/DL eGFR (2020 CKD-EPI) (test code 79 ML/MIN/1.73 = 03834) CALC BUN/CREAT (test code = 33 RATIO 2235) SODIUM (test code = 2231) 138 MEQ/L POTASSIUM (test code = 2228) 3.4 MEQ/L CHLORIDE (test code = 2215) 98 MEQ/L CARBON DIOXIDE (test code = 29 MEQ/L 2206) CALCIUM (test code = 2209) 10.4 MG/DL PROTEIN, TOTAL (test code = 7.5 G/DL 222) ALBUMIN (test code = 2201) 4.3 G/DL CALC GLOBULIN (test code = 3.2 G/DL 2240) CALC A/G RATIO (test code = 1.3 RATIO 2234) BILIRUBIN, TOTAL (test code = 0.6 MG/DL 2206) ALKALINE PHOSPHATASE (test 81 U/L code = 220) AST (test code = 2218) 44 U/L ALT (test code = 2219) 57 U/L COMPREHENSIVE METABOLIC [id number] 00:00:00 Test Item Value Reference Range Interpretation Comments GLUCOSE (test code = 2216) 171 MG/DL BUN (test code = 2208) 28 MG/DL CREATININE (test code = 2214) 0.84 MG/DL eGFR (2020 CKD-EPI) (test code 79 ML/MIN/1.73 = 31967) CALC BUN/CREAT (test code = 33 RATIO 2235) SODIUM (test code = 2231) 138 MEQ/L POTASSIUM (test code = 2228) 3.4 MEQ/L CHLORIDE (test code = 2215) 98 MEQ/L CARBON DIOXIDE (test code = 29 MEQ/L 2205) CALCIUM (test code = 2209) 10.4 MG/DL PROTEIN, TOTAL (test code = 7.5 G/DL 2228) ALBUMIN (test code = 2201) 4.3 G/DL CALC GLOBULIN (test code = 3.2 G/DL 2240) CALC A/G RATIO (test code = 1.3 RATIO 2234) BILIRUBIN, TOTAL (test code = 0.6 MG/DL 2206) ALKALINE PHOSPHATASE (test 81 U/L code = 2204) AST (test code = 2218) 44 U/L ALT (test code = 2219) 57 U/L HEMOGLOBIN [id number] 00:00:00 Test Item Value Reference Range Interpretation Comments HEMOGLOBIN A1c (test code = 80591) 9.0 % HEMOGLOBIN [id number] 00:00:00 Test Item Value Reference Range Interpretation Comments HEMOGLOBIN A1c (test code = 92094) 9.0 % HEMOGLOBIN [id number] 00:00:00 Test Item Value Reference Range Interpretation Comments HEMOGLOBIN A1c (test code = 94634) 9.0 % LIPID [id number] 00:00:00 Test Item Value Reference Range Interpretation Comments CHOLESTEROL (test code = 2210) 177 MG/DL TRIGLYCERIDES (test code = 2232) 173 MG/DL HDL CHOLESTEROL (test code = 2220) 45 MG/DL CALC LDL CHOL (test code = 2237) 103 MG/DL RISK RATIO LDL/HDL (test code = 2.29 RATIO 2238) LIPID [id number] 00:00:00 Test Item Value Reference Range Interpretation Comments CHOLESTEROL (test code = 2210) 177 MG/DL TRIGLYCERIDES (test code = 2232) 173 MG/DL HDL CHOLESTEROL (test code = 2220) 45 MG/DL CALC LDL CHOL (test code = 2237) 103 MG/DL RISK RATIO LDL/HDL (test code = 2.29 RATIO 2238) HEPATITIS C REFLEX [id number] 00:00:00 Test Item Value Reference Range Interpretation Comments HEPATITIS C ANTIBODY (test code = REACTIVE 4675) HEPATITIS C REFLEX [id number] 00:00:00 Test Item Value Reference Range Interpretation Comments HEPATITIS C ANTIBODY (test code = REACTIVE 4675) PROTHROMBIN TIME (PT)2022-04-23 00:00:00 Test Item Value Reference Range Interpretation Comments PROTHROMBIN TIME (PT) (test code 15.7 SECONDS = 1402) INR (test code = 32765) 1.2 PROTHROMBIN TIME (PT)2022-04-23 00:00:00 Test Item Value Reference Range Interpretation Comments PROTHROMBIN TIME (PT) (test code 15.7 SECONDS = 1402) INR (test code = 74375) 1.2 [id number] 00:00:00 Test Item Value Reference Range Interpretation Comments PTT (test code = 1403) 31.9 SECONDS [id number] 00:00:00 Test Item Value Reference Range Interpretation Comments PTT (test code = 1403) 31.9 SECONDS [id number] 00:00:00 Test Item Value Reference Range Interpretation Comments PTT (test code = 1403) 31.9 SECONDS [id number] 00:00:00 Test Item Value Reference Range Interpretation Comments PTT (test code = 1403) 31.9 SECONDS HCV RNA, PCR QUANT [REFLEX]2022-04-23 00:00:00 Test Item Value Reference Range Interpretation Comments HCV RNA, PCR QUANT (test code 2162665 IU/ML = 4571) HCV VIRAL LOG (test code = 6.745 LOGIU/ML 80829) HCV RNA, PCR QUANT [REFLEX]2022-04-23 00:00:00 Test Item Value Reference Range Interpretation Comments HCV RNA, PCR QUANT (test code 4203436 IU/ML = 4571) HCV VIRAL LOG (test code = 6.745 LOGIU/ML 95156) HCV RNA, PCR QUANT [REFLEX]2022-04-23 00:00:00 Test Item Value Reference Range Interpretation Comments HCV RNA, PCR QUANT (test code [id number] IU/ML = 4571) HCV VIRAL LOG (test code = 6.745 LOGIU/ML 67637) CBC W/AUTO [id number] 00:00:00 Test Item Value Reference Range Interpretation Comments WBC (test code = 1001) 7.2 K/UL RBC (test code = 1002) 4.88 M/UL HEMOGLOBIN (test code = 1003) 14.7 G/DL HEMATOCRIT (test code = 1004) 42.1 % MCV (test code = 1005) 86.3 fL MCH (test code = 1006) 30.1 PG MCHC (test code = 1007) 34.9 G/DL RDW (test code = 1038) 12.6 % NEUTROPHILS (test code = 1008) 54.7 % LYMPHOCYTES (test code = 1010) 33.4 % MONOCYTES (test code = 1011) 8.6 % EOSINOPHILS (test code = 1012) 2.1 % BASOPHILS (test code = 1013) 1.1 % IMMATURE GRANULOCYTES (test 0.1 % code = 1036) NUCLEATED RBCS (test code = 0.0 /100WBC'S 1065) PLATELET COUNT (test code = 241 K/UL 1015) ABSOLUTE NEUTROPHILS (test code 3.95 K/UL = 1066) ABSOLUTE LYMPHOCYTES (test code 2.41 K/UL = 1067) ABSOLUTE MONOCYTES (test code = 0.62 K/UL 1068) ABSOLUTE EOSINOPHILS (test code 0.15 K/UL = 1040) ABSOLUTE BASOPHILS (test code = 0.08 K/UL 1069) ABS IMMATURE GRANULOCYTES (test 0.01 K/UL code = 1020) ABS NUCLEATED RBCS (test code = 0.00 K/UL 60183) CBC W/AUTO [id number] 00:00:00 Test Item Value Reference Range Interpretation Comments WBC (test code = 1001) 7.2 K/UL RBC (test code = 1002) 4.88 M/UL HEMOGLOBIN (test code = 1003) 14.7 G/DL HEMATOCRIT (test code = 1004) 42.1 % MCV (test code = 1005) 86.3 fL MCH (test code = 1006) 30.1 PG MCHC (test code = 1007) 34.9 G/DL RDW (test code = 1038) 12.6 % NEUTROPHILS (test code = 1008) 54.7 % LYMPHOCYTES (test code = 1010) 33.4 % MONOCYTES (test code = 1011) 8.6 % EOSINOPHILS (test code = 1012) 2.1 % BASOPHILS (test code = 1013) 1.1 % IMMATURE GRANULOCYTES (test 0.1 % code = 1036) NUCLEATED RBCS (test code = 0.0 /100WBC'S 1065) PLATELET COUNT (test code = 241 K/UL 1015) ABSOLUTE NEUTROPHILS (test code 3.95 K/UL = 1066) ABSOLUTE LYMPHOCYTES (test code 2.41 K/UL = 1067) ABSOLUTE MONOCYTES (test code = 0.62 K/UL 1068) ABSOLUTE EOSINOPHILS (test code 0.15 K/UL = 1040) ABSOLUTE BASOPHILS (test code = 0.08 K/UL 1069) ABS IMMATURE GRANULOCYTES (test 0.01 K/UL code = 1020) ABS NUCLEATED RBCS (test code = 0.00 K/UL 42799) CBC W/AUTO [id number] 00:00:00 Test Item Value Reference Range Interpretation Comments WBC (test code = 1001) 7.2 K/UL RBC (test code = 1002) 4.88 M/UL HEMOGLOBIN (test code = 1003) 14.7 G/DL HEMATOCRIT (test code = 1004) 42.1 % MCV (test code = 1005) 86.3 fL MCH (test code = 1006) 30.1 PG MCHC (test code = 1007) 34.9 G/DL RDW (test code = 1038) 12.6 % NEUTROPHILS (test code = 1008) 54.7 % LYMPHOCYTES (test code = 1010) 33.4 % MONOCYTES (test code = 1011) 8.6 % EOSINOPHILS (test code = 1012) 2.1 % BASOPHILS (test code = 1013) 1.1 % IMMATURE GRANULOCYTES (test 0.1 % code = 1036) NUCLEATED RBCS (test code = 0.0 /100WBC'S 1065) PLATELET COUNT (test code = 241 K/UL 1015) ABSOLUTE NEUTROPHILS (test code 3.95 K/UL = 1066) ABSOLUTE LYMPHOCYTES (test code 2.41 K/UL = 1067) ABSOLUTE MONOCYTES (test code = 0.62 K/UL 1068) ABSOLUTE EOSINOPHILS (test code 0.15 K/UL = 1040) ABSOLUTE BASOPHILS (test code = 0.08 K/UL 1069) ABS IMMATURE GRANULOCYTES (test 0.01 K/UL code = 1020) ABS NUCLEATED RBCS (test code = 0.00 K/UL 76622) COMPREHENSIVE METABOLIC [id number] 00:00:00 Test Item Value Reference Range Interpretation Comments GLUCOSE (test code = 2217) 171 MG/DL BUN (test code = 2208) 28 MG/DL CREATININE (test code = 2214) 0.84 MG/DL eGFR (2020 CKD-EPI) (test code 79 ML/MIN/1.73 = 06834) CALC BUN/CREAT (test code = 33 RATIO 2235) SODIUM (test code = 2231) 138 MEQ/L POTASSIUM (test code = 2228) 3.4 MEQ/L CHLORIDE (test code = 2215) 98 MEQ/L CARBON DIOXIDE (test code = 29 MEQ/L 2205) CALCIUM (test code = 2209) 10.4 MG/DL PROTEIN, TOTAL (test code = 7.5 G/DL 2228) ALBUMIN (test code = 2201) 4.3 G/DL CALC GLOBULIN (test code = 3.2 G/DL 2240) CALC A/G RATIO (test code = 1.3 RATIO 2234) BILIRUBIN, TOTAL (test code = 0.6 MG/DL 2206) ALKALINE PHOSPHATASE (test 81 U/L code = 2204) AST (test code = 2218) 44 U/L ALT (test code = 2219) 57 U/L COMPREHENSIVE METABOLIC [id number] 00:00:00 Test Item Value Reference Range Interpretation Comments GLUCOSE (test code = 2217) 171 MG/DL BUN (test code = 2208) 28 MG/DL CREATININE (test code = 2214) 0.84 MG/DL eGFR (2020 CKD-EPI) (test code 79 ML/MIN/1.73 = 81144) CALC BUN/CREAT (test code = 33 RATIO 2235) SODIUM (test code = 2231) 138 MEQ/L POTASSIUM (test code = 2228) 3.4 MEQ/L CHLORIDE (test code = 2215) 98 MEQ/L CARBON DIOXIDE (test code = 29 MEQ/L 2205) CALCIUM (test code = 2209) 10.4 MG/DL PROTEIN, TOTAL (test code = 7.5 G/DL 2228) ALBUMIN (test code = 2201) 4.3 G/DL CALC GLOBULIN (test code = 3.2 G/DL 2239) CALC A/G RATIO (test code = 1.3 RATIO 2233) BILIRUBIN, TOTAL (test code = 0.6 MG/DL 2206) ALKALINE PHOSPHATASE (test 81 U/L code = 2204) AST (test code = 2218) 44 U/L ALT (test code = 2219) 57 U/L HEMOGLOBIN [id number] 00:00:00 Test Item Value Reference Range Interpretation Comments HEMOGLOBIN A1c (test code = 67885) 9.0 % HEMOGLOBIN [id number] 00:00:00 Test Item Value Reference Range Interpretation Comments HEMOGLOBIN A1c (test code = 53114) 9.0 % HEMOGLOBIN [id number] 00:00:00 Test Item Value Reference Range Interpretation Comments HEMOGLOBIN A1c (test code = 23658) 9.0 % LIPID [id number] 00:00:00 Test Item Value Reference Range Interpretation Comments CHOLESTEROL (test code = 2210) 177 MG/DL TRIGLYCERIDES (test code = 2232) 173 MG/DL HDL CHOLESTEROL (test code = 2220) 45 MG/DL CALC LDL CHOL (test code = 2237) 103 MG/DL RISK RATIO LDL/HDL (test code = 2.29 RATIO 8) LIPID [id number] 00:00:00 Test Item Value Reference Range Interpretation Comments CHOLESTEROL (test code = 2210) 177 MG/DL TRIGLYCERIDES (test code = 2232) 173 MG/DL HDL CHOLESTEROL (test code = 2220) 45 MG/DL CALC LDL CHOL (test code = 2237) 103 MG/DL RISK RATIO LDL/HDL (test code = 2.29 RATIO 2238) HEPATITIS C REFLEX [id number] 00:00:00 Test Item Value Reference Range Interpretation Comments HEPATITIS C ANTIBODY (test code = REACTIVE 4675) HEPATITIS C REFLEX [id number] 00:00:00 Test Item Value Reference Range Interpretation Comments HEPATITIS C ANTIBODY (test code = REACTIVE 4675) PROTHROMBIN TIME (PT)2022-04-23 00:00:00 Test Item Value Reference Range Interpretation Comments PROTHROMBIN TIME (PT) (test code 15.7 SECONDS = 1402) INR (test code = 66754) 1.2 PROTHROMBIN TIME (PT)2022-04-23 00:00:00 Test Item Value Reference Range Interpretation Comments PROTHROMBIN TIME (PT) (test code 15.7 SECONDS = 1402) INR (test code = 29809) 1.2 [id number] 00:00:00 Test Item Value Reference Range Interpretation Comments PTT (test code = 1403) 31.9 SECONDS [id number] 00:00:00 Test Item Value Reference Range Interpretation Comments PTT (test code = 1403) 31.9 SECONDS [id number] 00:00:00 Test Item Value Reference Range Interpretation Comments PTT (test code = 1403) 31.9 SECONDS [id number] 00:00:00 Test Item Value Reference Range Interpretation Comments PTT (test code = 1403) 31.9 SECONDS HCV RNA, PCR QUANT [REFLEX]2022-04-23 00:00:00 Test Item Value Reference Range Interpretation Comments HCV RNA, PCR QUANT (test code 2358462 IU/ML = 4571) HCV VIRAL LOG (test code = 6.745 LOGIU/ML 61497) HCV RNA, PCR QUANT [REFLEX]2022-04-23 00:00:00 Test Item Value Reference Range Interpretation Comments HCV RNA, PCR QUANT (test code 7550780 IU/ML = 4571) HCV VIRAL LOG (test code = 6.745 LOGIU/ML 72828) HCV RNA, PCR QUANT [REFLEX]2022-04-23 00:00:00 Test Item Value Reference Range Interpretation Comments HCV RNA, PCR QUANT (test code 2724849 IU/ML = 4571) HCV VIRAL LOG (test code = 6.745 LOGIU/ML 05875) CBC W/AUTO [id number] 00:00:00 Test Item Value Reference Range Interpretation Comments WBC (test code = 1001) 7.2 K/UL RBC (test code = 1002) 4.88 M/UL HEMOGLOBIN (test code = 1003) 14.7 G/DL HEMATOCRIT (test code = 1004) 42.1 % MCV (test code = 1005) 86.3 fL MCH (test code = 1006) 30.1 PG MCHC (test code = 1007) 34.9 G/DL RDW (test code = 1038) 12.6 % NEUTROPHILS (test code = 1008) 54.7 % LYMPHOCYTES (test code = 1010) 33.4 % MONOCYTES (test code = 1011) 8.6 % EOSINOPHILS (test code = 1012) 2.1 % BASOPHILS (test code = 1013) 1.1 % IMMATURE GRANULOCYTES (test 0.1 % code = 1036) NUCLEATED RBCS (test code = 0.0 /100WBC'S 1065) PLATELET COUNT (test code = 241 K/UL 1015) ABSOLUTE NEUTROPHILS (test code 3.95 K/UL = 1066) ABSOLUTE LYMPHOCYTES (test code 2.41 K/UL = 1067) ABSOLUTE MONOCYTES (test code = 0.62 K/UL 1068) ABSOLUTE EOSINOPHILS (test code 0.15 K/UL = 1040) ABSOLUTE BASOPHILS (test code = 0.08 K/UL 1069) ABS IMMATURE GRANULOCYTES (test 0.01 K/UL code = 1020) ABS NUCLEATED RBCS (test code = 0.00 K/UL 66067) CBC W/AUTO [id number] 00:00:00 Test Item Value Reference Range Interpretation Comments WBC (test code = 1001) 7.2 K/UL RBC (test code = 1002) 4.88 M/UL HEMOGLOBIN (test code = 1003) 14.7 G/DL HEMATOCRIT (test code = 1004) 42.1 % MCV (test code = 1005) 86.3 fL MCH (test code = 1006) 30.1 PG MCHC (test code = 1007) 34.9 G/DL RDW (test code = 1038) 12.6 % NEUTROPHILS (test code = 1008) 54.7 % LYMPHOCYTES (test code = 1010) 33.4 % MONOCYTES (test code = 1011) 8.6 % EOSINOPHILS (test code = 1012) 2.1 % BASOPHILS (test code = 1013) 1.1 % IMMATURE GRANULOCYTES (test 0.1 % code = 1036) NUCLEATED RBCS (test code = 0.0 /100WBC'S 1065) PLATELET COUNT (test code = 241 K/UL 1015) ABSOLUTE NEUTROPHILS (test code 3.95 K/UL = 1066) ABSOLUTE LYMPHOCYTES (test code 2.41 K/UL = 1067) ABSOLUTE MONOCYTES (test code = 0.62 K/UL 1068) ABSOLUTE EOSINOPHILS (test code 0.15 K/UL = 1040) ABSOLUTE BASOPHILS (test code = 0.08 K/UL 1069) ABS IMMATURE GRANULOCYTES (test 0.01 K/UL code = 1020) ABS NUCLEATED RBCS (test code = 0.00 K/UL 96018) CBC W/AUTO [id number] 00:00:00 Test Item Value Reference Range Interpretation Comments WBC (test code = 1001) 7.2 K/UL RBC (test code = 1002) 4.88 M/UL HEMOGLOBIN (test code = 1003) 14.7 G/DL HEMATOCRIT (test code = 1004) 42.1 % MCV (test code = 1005) 86.3 fL MCH (test code = 1006) 30.1 PG MCHC (test code = 1007) 34.9 G/DL RDW (test code = 1038) 12.6 % NEUTROPHILS (test code = 1008) 54.7 % LYMPHOCYTES (test code = 1010) 33.4 % MONOCYTES (test code = 1011) 8.6 % EOSINOPHILS (test code = 1012) 2.1 % BASOPHILS (test code = 1013) 1.1 % IMMATURE GRANULOCYTES (test 0.1 % code = 1036) NUCLEATED RBCS (test code = 0.0 /100WBC'S 1065) PLATELET COUNT (test code = 241 K/UL 1015) ABSOLUTE NEUTROPHILS (test code 3.95 K/UL = 1066) ABSOLUTE LYMPHOCYTES (test code 2.41 K/UL = 1067) ABSOLUTE MONOCYTES (test code = 0.62 K/UL 1068) ABSOLUTE EOSINOPHILS (test code 0.15 K/UL = 1040) ABSOLUTE BASOPHILS (test code = 0.08 K/UL 1069) ABS IMMATURE GRANULOCYTES (test 0.01 K/UL code = 1020) ABS NUCLEATED RBCS (test code = 0.00 K/UL 16170) COMPREHENSIVE METABOLIC [id number] 00:00:00 Test Item Value Reference Range Interpretation Comments GLUCOSE (test code = 2217) 171 MG/DL BUN (test code = 2208) 28 MG/DL CREATININE (test code = 2214) 0.84 MG/DL eGFR (2020 CKD-EPI) (test code 79 ML/MIN/1.73 = 42174) CALC BUN/CREAT (test code = 33 RATIO 2235) SODIUM (test code = 2231) 138 MEQ/L POTASSIUM (test code = 2228) 3.4 MEQ/L CHLORIDE (test code = 2215) 98 MEQ/L CARBON DIOXIDE (test code = 29 MEQ/L 220) CALCIUM (test code = 2209) 10.4 MG/DL PROTEIN, TOTAL (test code = 7.5 G/DL 2228) ALBUMIN (test code = 2201) 4.3 G/DL CALC GLOBULIN (test code = 3.2 G/DL 2240) CALC A/G RATIO (test code = 1.3 RATIO 2234) BILIRUBIN, TOTAL (test code = 0.6 MG/DL 2206) ALKALINE PHOSPHATASE (test 81 U/L code = 2204) AST (test code = 2218) 44 U/L ALT (test code = 2219) 57 U/L COMPREHENSIVE METABOLIC [id number] 00:00:00 Test Item Value Reference Range Interpretation Comments GLUCOSE (test code = 2217) 171 MG/DL BUN (test code = 2208) 28 MG/DL CREATININE (test code = 2214) 0.84 MG/DL eGFR (2020 CKD-EPI) (test code 79 ML/MIN/1.73 = 15831) CALC BUN/CREAT (test code = 33 RATIO 2235) SODIUM (test code = 2231) 138 MEQ/L POTASSIUM (test code = 2228) 3.4 MEQ/L CHLORIDE (test code = 2215) 98 MEQ/L CARBON DIOXIDE (test code = 29 MEQ/L 220) CALCIUM (test code = 2209) 10.4 MG/DL PROTEIN, TOTAL (test code = 7.5 G/DL 2229) ALBUMIN (test code = 2201) 4.3 G/DL CALC GLOBULIN (test code = 3.2 G/DL 2240) CALC A/G RATIO (test code = 1.3 RATIO 2234) BILIRUBIN, TOTAL (test code = 0.6 MG/DL 2206) ALKALINE PHOSPHATASE (test 81 U/L code = 2204) AST (test code = 2218) 44 U/L ALT (test code = 2219) 57 U/L HEMOGLOBIN [id number] 00:00:00 Test Item Value Reference Range Interpretation Comments HEMOGLOBIN A1c (test code = 74353) 9.0 % HEMOGLOBIN [id number] 00:00:00 Test Item Value Reference Range Interpretation Comments HEMOGLOBIN A1c (test code = 16658) 9.0 % HEMOGLOBIN [id number] 00:00:00 Test Item Value Reference Range Interpretation Comments HEMOGLOBIN A1c (test code = 22432) 9.0 % LIPID [id number] 00:00:00 Test Item Value Reference Range Interpretation Comments CHOLESTEROL (test code = 2210) 177 MG/DL TRIGLYCERIDES (test code = 2232) 173 MG/DL HDL CHOLESTEROL (test code = 2220) 45 MG/DL CALC LDL CHOL (test code = 2237) 103 MG/DL RISK RATIO LDL/HDL (test code = 2.29 RATIO 2238) LIPID [id number] 00:00:00 Test Item Value Reference Range Interpretation Comments CHOLESTEROL (test code = 2210) 177 MG/DL TRIGLYCERIDES (test code = 2232) 173 MG/DL HDL CHOLESTEROL (test code = 2220) 45 MG/DL CALC LDL CHOL (test code = 2237) 103 MG/DL RISK RATIO LDL/HDL (test code = 2.29 RATIO 2238) HEPATITIS C REFLEX [id number] 00:00:00 Test Item Value Reference Range Interpretation Comments HEPATITIS C ANTIBODY (test code = REACTIVE 4675) HEPATITIS C REFLEX [id number] 00:00:00 Test Item Value Reference Range Interpretation Comments HEPATITIS C ANTIBODY (test code = REACTIVE 4675) PROTHROMBIN TIME (PT)2022-04-23 00:00:00 Test Item Value Reference Range Interpretation Comments PROTHROMBIN TIME (PT) (test code 15.7 SECONDS = 1402) INR (test code = 91324) 1.2 PROTHROMBIN TIME (PT)2022-04-23 00:00:00 Test Item Value Reference Range Interpretation Comments PROTHROMBIN TIME (PT) (test code 15.7 SECONDS = 1402) INR (test code = 20120) 1.2 [id number] 00:00:00 Test Item Value Reference Range Interpretation Comments PTT (test code = 1403) 31.9 SECONDS [id number] 00:00:00 Test Item Value Reference Range Interpretation Comments PTT (test code = 1403) 31.9 SECONDS [id number] 00:00:00 Test Item Value Reference Range Interpretation Comments PTT (test code = 1403) 31.9 SECONDS [id number] 00:00:00 Test Item Value Reference Range Interpretation Comments PTT (test code = 1403) 31.9 SECONDS HCV RNA, PCR QUANT [REFLEX]2022-04-23 00:00:00 Test Item Value Reference Range Interpretation Comments HCV RNA, PCR QUANT (test code 9428603 IU/ML = 4571) HCV VIRAL LOG (test code = 6.745 LOGIU/ML 00572) HCV RNA, PCR QUANT [REFLEX]2022-04-23 00:00:00 Test Item Value Reference Range Interpretation Comments HCV RNA, PCR QUANT (test code 2121908 IU/ML = 4571) HCV VIRAL LOG (test code = 6.745 LOGIU/ML 75410) HCV RNA, PCR QUANT [REFLEX]2022-04-23 00:00:00 Test Item Value Reference Range Interpretation Comments HCV RNA, PCR QUANT (test code 5505086 IU/ML = 4571) HCV VIRAL LOG (test code = 6.745 LOGIU/ML 16731) CBC W/AUTO [id number] 00:00:00 Test Item Value Reference Range Interpretation Comments WBC (test code = 1001) 7.2 K/UL RBC (test code = 1002) 4.88 M/UL HEMOGLOBIN (test code = 1003) 14.7 G/DL HEMATOCRIT (test code = 1004) 42.1 % MCV (test code = 1005) 86.3 fL MCH (test code = 1006) 30.1 PG MCHC (test code = 1007) 34.9 G/DL RDW (test code = 1038) 12.6 % NEUTROPHILS (test code = 1008) 54.7 % LYMPHOCYTES (test code = 1010) 33.4 % MONOCYTES (test code = 1011) 8.6 % EOSINOPHILS (test code = 1012) 2.1 % BASOPHILS (test code = 1013) 1.1 % IMMATURE GRANULOCYTES (test 0.1 % code = 1036) NUCLEATED RBCS (test code = 0.0 /100WBC'S 1065) PLATELET COUNT (test code = 241 K/UL 1015) ABSOLUTE NEUTROPHILS (test code 3.95 K/UL = 1066) ABSOLUTE LYMPHOCYTES (test code 2.41 K/UL = 1067) ABSOLUTE MONOCYTES (test code = 0.62 K/UL 1068) ABSOLUTE EOSINOPHILS (test code 0.15 K/UL = 1040) ABSOLUTE BASOPHILS (test code = 0.08 K/UL 1069) ABS IMMATURE GRANULOCYTES (test 0.01 K/UL code = 1020) ABS NUCLEATED RBCS (test code = 0.00 K/UL 44311) CBC W/AUTO [id number] 00:00:00 Test Item Value Reference Range Interpretation Comments WBC (test code = 1001) 7.2 K/UL RBC (test code = 1002) 4.88 M/UL HEMOGLOBIN (test code = 1003) 14.7 G/DL HEMATOCRIT (test code = 1004) 42.1 % MCV (test code = 1005) 86.3 fL MCH (test code = 1006) 30.1 PG MCHC (test code = 1007) 34.9 G/DL RDW (test code = 1038) 12.6 % NEUTROPHILS (test code = 1008) 54.7 % LYMPHOCYTES (test code = 1010) 33.4 % MONOCYTES (test code = 1011) 8.6 % EOSINOPHILS (test code = 1012) 2.1 % BASOPHILS (test code = 1013) 1.1 % IMMATURE GRANULOCYTES (test 0.1 % code = 1036) NUCLEATED RBCS (test code = 0.0 /100WBC'S 1065) PLATELET COUNT (test code = 241 K/UL 1015) ABSOLUTE NEUTROPHILS (test code 3.95 K/UL = 1066) ABSOLUTE LYMPHOCYTES (test code 2.41 K/UL = 1067) ABSOLUTE MONOCYTES (test code = 0.62 K/UL 1068) ABSOLUTE EOSINOPHILS (test code 0.15 K/UL = 1040) ABSOLUTE BASOPHILS (test code = 0.08 K/UL 1069) ABS IMMATURE GRANULOCYTES (test 0.01 K/UL code = 1020) ABS NUCLEATED RBCS (test code = 0.00 K/UL 32509) CBC W/AUTO [id number] 00:00:00 Test Item Value Reference Range Interpretation Comments WBC (test code = 1001) 7.2 K/UL RBC (test code = 1002) 4.88 M/UL HEMOGLOBIN (test code = 1003) 14.7 G/DL HEMATOCRIT (test code = 1004) 42.1 % MCV (test code = 1005) 86.3 fL MCH (test code = 1006) 30.1 PG MCHC (test code = 1007) 34.9 G/DL RDW (test code = 1038) 12.6 % NEUTROPHILS (test code = 1008) 54.7 % LYMPHOCYTES (test code = 1010) 33.4 % MONOCYTES (test code = 1011) 8.6 % EOSINOPHILS (test code = 1012) 2.1 % BASOPHILS (test code = 1013) 1.1 % IMMATURE GRANULOCYTES (test 0.1 % code = 1036) NUCLEATED RBCS (test code = 0.0 /100WBC'S 1065) PLATELET COUNT (test code = 241 K/UL 1015) ABSOLUTE NEUTROPHILS (test code 3.95 K/UL = 1066) ABSOLUTE LYMPHOCYTES (test code 2.41 K/UL = 1067) ABSOLUTE MONOCYTES (test code = 0.62 K/UL 1068) ABSOLUTE EOSINOPHILS (test code 0.15 K/UL = 1040) ABSOLUTE BASOPHILS (test code = 0.08 K/UL 1069) ABS IMMATURE GRANULOCYTES (test 0.01 K/UL code = 1020) ABS NUCLEATED RBCS (test code = 0.00 K/UL 55074) COMPREHENSIVE METABOLIC [id number] 00:00:00 Test Item Value Reference Range Interpretation Comments GLUCOSE (test code = 2217) 171 MG/DL BUN (test code = 2208) 28 MG/DL CREATININE (test code = 2214) 0.84 MG/DL eGFR (2020 CKD-EPI) (test code 79 ML/MIN/1.73 = 86942) CALC BUN/CREAT (test code = 33 RATIO 2235) SODIUM (test code = 2231) 138 MEQ/L POTASSIUM (test code = 2228) 3.4 MEQ/L CHLORIDE (test code = 2215) 98 MEQ/L CARBON DIOXIDE (test code = 29 MEQ/L 6) CALCIUM (test code = 2209) 10.4 MG/DL PROTEIN, TOTAL (test code = 7.5 G/DL 2228) ALBUMIN (test code = 2201) 4.3 G/DL CALC GLOBULIN (test code = 3.2 G/DL 2240) CALC A/G RATIO (test code = 1.3 RATIO 2234) BILIRUBIN, TOTAL (test code = 0.6 MG/DL 2206) ALKALINE PHOSPHATASE (test 81 U/L code = 2204) AST (test code = 2218) 44 U/L ALT (test code = 2219) 57 U/L COMPREHENSIVE METABOLIC [id number] 00:00:00 Test Item Value Reference Range Interpretation Comments GLUCOSE (test code = 2217) 171 MG/DL BUN (test code = 2208) 28 MG/DL CREATININE (test code = 2214) 0.84 MG/DL eGFR (2020 CKD-EPI) (test code 79 ML/MIN/1.73 = 66896) CALC BUN/CREAT (test code = 33 RATIO 2235) SODIUM (test code = 2231) 138 MEQ/L POTASSIUM (test code = 2228) 3.4 MEQ/L CHLORIDE (test code = 2215) 98 MEQ/L CARBON DIOXIDE (test code = 29 MEQ/L 2205) CALCIUM (test code = 2209) 10.4 MG/DL PROTEIN, TOTAL (test code = 7.5 G/DL 2228) ALBUMIN (test code = 2201) 4.3 G/DL CALC GLOBULIN (test code = 3.2 G/DL 2240) CALC A/G RATIO (test code = 1.3 RATIO 2234) BILIRUBIN, TOTAL (test code = 0.6 MG/DL 2206) ALKALINE PHOSPHATASE (test 81 U/L code = 2204) AST (test code = 2218) 44 U/L ALT (test code = 2219) 57 U/L HEMOGLOBIN [id number] 00:00:00 Test Item Value Reference Range Interpretation Comments HEMOGLOBIN A1c (test code = 87637) 9.0 % HEMOGLOBIN [id number] 00:00:00 Test Item Value Reference Range Interpretation Comments HEMOGLOBIN A1c (test code = 56181) 9.0 % HEMOGLOBIN [id number] 00:00:00 Test Item Value Reference Range Interpretation Comments HEMOGLOBIN A1c (test code = 32710) 9.0 % LIPID [id number] 00:00:00 Test Item Value Reference Range Interpretation Comments CHOLESTEROL (test code = 2210) 177 MG/DL TRIGLYCERIDES (test code = 2232) 173 MG/DL HDL CHOLESTEROL (test code = 2220) 45 MG/DL CALC LDL CHOL (test code = 2237) 103 MG/DL RISK RATIO LDL/HDL (test code = 2.29 RATIO 2238) LIPID [id number] 00:00:00 Test Item Value Reference Range Interpretation Comments CHOLESTEROL (test code = 2210) 177 MG/DL TRIGLYCERIDES (test code = 2232) 173 MG/DL HDL CHOLESTEROL (test code = 2220) 45 MG/DL CALC LDL CHOL (test code = 2237) 103 MG/DL RISK RATIO LDL/HDL (test code = 2.29 RATIO 2238) HEPATITIS C REFLEX [id number] 00:00:00 Test Item Value Reference Range Interpretation Comments HEPATITIS C ANTIBODY (test code = REACTIVE 4675) HEPATITIS C REFLEX [id number] 00:00:00 Test Item Value Reference Range Interpretation Comments HEPATITIS C ANTIBODY (test code = REACTIVE 4675) PROTHROMBIN TIME (PT)2022-04-23 00:00:00 Test Item Value Reference Range Interpretation Comments PROTHROMBIN TIME (PT) (test code 15.7 SECONDS = 1402) INR (test code = 01154) 1.2 PROTHROMBIN TIME (PT)2022-04-23 00:00:00 Test Item Value Reference Range Interpretation Comments PROTHROMBIN TIME (PT) (test code 15.7 SECONDS = 1402) INR (test code = 31539) 1.2 [id number] 00:00:00 Test Item Value Reference Range Interpretation Comments PTT (test code = 1403) 31.9 SECONDS [id number] 00:00:00 Test Item Value Reference Range Interpretation Comments PTT (test code = 1403) 31.9 SECONDS [id number] 00:00:00 Test Item Value Reference Range Interpretation Comments PTT (test code = 1403) 31.9 SECONDS [id number] 00:00:00 Test Item Value Reference Range Interpretation Comments PTT (test code = 1403) 31.9 SECONDS HCV RNA, PCR QUANT [REFLEX]2022-04-23 00:00:00 Test Item Value Reference Range Interpretation Comments HCV RNA, PCR QUANT (test code 2759499 IU/ML = 4571) HCV VIRAL LOG (test code = 6.745 LOGIU/ML 20935) HCV RNA, PCR QUANT [REFLEX]2022-04-23 00:00:00 Test Item Value Reference Range Interpretation Comments HCV RNA, PCR QUANT (test code 0100244 IU/ML = 4571) HCV VIRAL LOG (test code = 6.745 LOGIU/ML 89842) HCV RNA, PCR QUANT [REFLEX]2022-04-23 00:00:00 Test Item Value Reference Range Interpretation Comments HCV RNA, PCR QUANT (test code [id number] IU/ML = 4571) HCV VIRAL LOG (test code = 6.745 LOGIU/ML 53861) CBC W/AUTO [id number] 00:00:00 Test Item Value Reference Range Interpretation Comments WBC (test code = 1001) 7.2 K/UL RBC (test code = 1002) 4.88 M/UL HEMOGLOBIN (test code = 1003) 14.7 G/DL HEMATOCRIT (test code = 1004) 42.1 % MCV (test code = 1005) 86.3 fL MCH (test code = 1006) 30.1 PG MCHC (test code = 1007) 34.9 G/DL RDW (test code = 1038) 12.6 % NEUTROPHILS (test code = 1008) 54.7 % LYMPHOCYTES (test code = 1010) 33.4 % MONOCYTES (test code = 1011) 8.6 % EOSINOPHILS (test code = 1012) 2.1 % BASOPHILS (test code = 1013) 1.1 % IMMATURE GRANULOCYTES (test 0.1 % code = 1036) NUCLEATED RBCS (test code = 0.0 /100WBC'S 1065) PLATELET COUNT (test code = 241 K/UL 1015) ABSOLUTE NEUTROPHILS (test code 3.95 K/UL = 1066) ABSOLUTE LYMPHOCYTES (test code 2.41 K/UL = 1067) ABSOLUTE MONOCYTES (test code = 0.62 K/UL 1068) ABSOLUTE EOSINOPHILS (test code 0.15 K/UL = 1040) ABSOLUTE BASOPHILS (test code = 0.08 K/UL 1069) ABS IMMATURE GRANULOCYTES (test 0.01 K/UL code = 1020) ABS NUCLEATED RBCS (test code = 0.00 K/UL 94322) CBC W/AUTO [id number] 00:00:00 Test Item Value Reference Range Interpretation Comments WBC (test code = 1001) 7.2 K/UL RBC (test code = 1002) 4.88 M/UL HEMOGLOBIN (test code = 1003) 14.7 G/DL HEMATOCRIT (test code = 1004) 42.1 % MCV (test code = 1005) 86.3 fL MCH (test code = 1006) 30.1 PG MCHC (test code = 1007) 34.9 G/DL RDW (test code = 1038) 12.6 % NEUTROPHILS (test code = 1008) 54.7 % LYMPHOCYTES (test code = 1010) 33.4 % MONOCYTES (test code = 1011) 8.6 % EOSINOPHILS (test code = 1012) 2.1 % BASOPHILS (test code = 1013) 1.1 % IMMATURE GRANULOCYTES (test 0.1 % code = 1036) NUCLEATED RBCS (test code = 0.0 /100WBC'S 1065) PLATELET COUNT (test code = 241 K/UL 1015) ABSOLUTE NEUTROPHILS (test code 3.95 K/UL = 1066) ABSOLUTE LYMPHOCYTES (test code 2.41 K/UL = 1067) ABSOLUTE MONOCYTES (test code = 0.62 K/UL 1068) ABSOLUTE EOSINOPHILS (test code 0.15 K/UL = 1040) ABSOLUTE BASOPHILS (test code = 0.08 K/UL 1069) ABS IMMATURE GRANULOCYTES (test 0.01 K/UL code = 1020) ABS NUCLEATED RBCS (test code = 0.00 K/UL 94460) CBC W/AUTO [id number] 00:00:00 Test Item Value Reference Range Interpretation Comments WBC (test code = 1001) 7.2 K/UL RBC (test code = 1002) 4.88 M/UL HEMOGLOBIN (test code = 1003) 14.7 G/DL HEMATOCRIT (test code = 1004) 42.1 % MCV (test code = 1005) 86.3 fL MCH (test code = 1006) 30.1 PG MCHC (test code = 1007) 34.9 G/DL RDW (test code = 1038) 12.6 % NEUTROPHILS (test code = 1008) 54.7 % LYMPHOCYTES (test code = 1010) 33.4 % MONOCYTES (test code = 1011) 8.6 % EOSINOPHILS (test code = 1012) 2.1 % BASOPHILS (test code = 1013) 1.1 % IMMATURE GRANULOCYTES (test 0.1 % code = 1036) NUCLEATED RBCS (test code = 0.0 /100WBC'S 1065) PLATELET COUNT (test code = 241 K/UL 1015) ABSOLUTE NEUTROPHILS (test code 3.95 K/UL = 1066) ABSOLUTE LYMPHOCYTES (test code 2.41 K/UL = 1067) ABSOLUTE MONOCYTES (test code = 0.62 K/UL 1068) ABSOLUTE EOSINOPHILS (test code 0.15 K/UL = 1040) ABSOLUTE BASOPHILS (test code = 0.08 K/UL 1069) ABS IMMATURE GRANULOCYTES (test 0.01 K/UL code = 1020) ABS NUCLEATED RBCS (test code = 0.00 K/UL 64810) COMPREHENSIVE METABOLIC [id number] 00:00:00 Test Item Value Reference Range Interpretation Comments GLUCOSE (test code = 2217) 171 MG/DL BUN (test code = 2208) 28 MG/DL CREATININE (test code = 2214) 0.84 MG/DL eGFR (2020 CKD-EPI) (test code 79 ML/MIN/1.73 = 34001) CALC BUN/CREAT (test code = 33 RATIO 2235) SODIUM (test code = 2231) 138 MEQ/L POTASSIUM (test code = 2228) 3.4 MEQ/L CHLORIDE (test code = 2215) 98 MEQ/L CARBON DIOXIDE (test code = 29 MEQ/L 2205) CALCIUM (test code = 2209) 10.4 MG/DL PROTEIN, TOTAL (test code = 7.5 G/DL 2228) ALBUMIN (test code = 2201) 4.3 G/DL CALC GLOBULIN (test code = 3.2 G/DL 2240) CALC A/G RATIO (test code = 1.3 RATIO 2234) BILIRUBIN, TOTAL (test code = 0.6 MG/DL 2206) ALKALINE PHOSPHATASE (test 81 U/L code = 2204) AST (test code = 2218) 44 U/L ALT (test code = 2219) 57 U/L COMPREHENSIVE METABOLIC [id number] 00:00:00 Test Item Value Reference Range Interpretation Comments GLUCOSE (test code = 2217) 171 MG/DL BUN (test code = 2208) 28 MG/DL CREATININE (test code = 2214) 0.84 MG/DL eGFR (2020 CKD-EPI) (test code 79 ML/MIN/1.73 = 19373) CALC BUN/CREAT (test code = 33 RATIO 5) SODIUM (test code = 2231) 138 MEQ/L POTASSIUM (test code = 2228) 3.4 MEQ/L CHLORIDE (test code = 2215) 98 MEQ/L CARBON DIOXIDE (test code = 29 MEQ/L 2205) CALCIUM (test code = 2209) 10.4 MG/DL PROTEIN, TOTAL (test code = 7.5 G/DL 2228) ALBUMIN (test code = 220) 4.3 G/DL CALC GLOBULIN (test code = 3.2 G/DL 2239) CALC A/G RATIO (test code = 1.3 RATIO 2233) BILIRUBIN, TOTAL (test code = 0.6 MG/DL 2206) ALKALINE PHOSPHATASE (test 81 U/L code = 2204) AST (test code = 2218) 44 U/L ALT (test code = 2219) 57 U/L HEMOGLOBIN [id number] 00:00:00 Test Item Value Reference Range Interpretation Comments HEMOGLOBIN A1c (test code = 08056) 9.0 % HEMOGLOBIN [id number] 00:00:00 Test Item Value Reference Range Interpretation Comments HEMOGLOBIN A1c (test code = 08626) 9.0 % HEMOGLOBIN [id number] 00:00:00 Test Item Value Reference Range Interpretation Comments HEMOGLOBIN A1c (test code = 69718) 9.0 % LIPID [id number] 00:00:00 Test Item Value Reference Range Interpretation Comments CHOLESTEROL (test code = 2210) 177 MG/DL TRIGLYCERIDES (test code = 2232) 173 MG/DL HDL CHOLESTEROL (test code = 2220) 45 MG/DL CALC LDL CHOL (test code = 2237) 103 MG/DL RISK RATIO LDL/HDL (test code = 2.29 RATIO 2238) LIPID [id number] 00:00:00 Test Item Value Reference Range Interpretation Comments CHOLESTEROL (test code = 2210) 177 MG/DL TRIGLYCERIDES (test code = 2232) 173 MG/DL HDL CHOLESTEROL (test code = 2220) 45 MG/DL CALC LDL CHOL (test code = 2237) 103 MG/DL RISK RATIO LDL/HDL (test code = 2.29 RATIO 2238) HEPATITIS C REFLEX [id number] 00:00:00 Test Item Value Reference Range Interpretation Comments HEPATITIS C ANTIBODY (test code = REACTIVE 4675) HEPATITIS C REFLEX [id number] 00:00:00 Test Item Value Reference Range Interpretation Comments HEPATITIS C ANTIBODY (test code = REACTIVE 4675) PROTHROMBIN TIME (PT)2022-04-23 00:00:00 Test Item Value Reference Range Interpretation Comments PROTHROMBIN TIME (PT) (test code 15.7 SECONDS = 1402) INR (test code = 56875) 1.2 PROTHROMBIN TIME (PT)2022-04-23 00:00:00 Test Item Value Reference Range Interpretation Comments PROTHROMBIN TIME (PT) (test code 15.7 SECONDS = 1402) INR (test code = 02481) 1.2 [id number] 00:00:00 Test Item Value Reference Range Interpretation Comments PTT (test code = 1403) 31.9 SECONDS [id number] 00:00:00 Test Item Value Reference Range Interpretation Comments PTT (test code = 1403) 31.9 SECONDS [id number] 00:00:00 Test Item Value Reference Range Interpretation Comments PTT (test code = 1403) 31.9 SECONDS [id number] 00:00:00 Test Item Value Reference Range Interpretation Comments PTT (test code = 1403) 31.9 SECONDS HCV RNA, PCR QUANT [REFLEX]2022-04-23 00:00:00 Test Item Value Reference Range Interpretation Comments HCV RNA, PCR QUANT (test code 2642334 IU/ML = 4571) HCV VIRAL LOG (test code = 6.745 LOGIU/ML 03122) HCV RNA, PCR QUANT [REFLEX]2022-04-23 00:00:00 Test Item Value Reference Range Interpretation Comments HCV RNA, PCR QUANT (test code 7706043 IU/ML = 4571) HCV VIRAL LOG (test code = 6.745 LOGIU/ML 62860) HCV RNA, PCR QUANT [REFLEX]2022-04-23 00:00:00 Test Item Value Reference Range Interpretation Comments HCV RNA, PCR QUANT (test code 4789419 IU/ML = 4571) HCV VIRAL LOG (test code = 6.745 LOGIU/ML 01693) CBC W/AUTO [id number] 00:00:00 Test Item Value Reference Range Interpretation Comments WBC (test code = 1001) 7.2 K/UL RBC (test code = 1002) 4.88 M/UL HEMOGLOBIN (test code = 1003) 14.7 G/DL HEMATOCRIT (test code = 1004) 42.1 % MCV (test code = 1005) 86.3 fL MCH (test code = 1006) 30.1 PG MCHC (test code = 1007) 34.9 G/DL RDW (test code = 1038) 12.6 % NEUTROPHILS (test code = 1008) 54.7 % LYMPHOCYTES (test code = 1010) 33.4 % MONOCYTES (test code = 1011) 8.6 % EOSINOPHILS (test code = 1012) 2.1 % BASOPHILS (test code = 1013) 1.1 % IMMATURE GRANULOCYTES (test 0.1 % code = 1036) NUCLEATED RBCS (test code = 0.0 /100WBC'S 1065) PLATELET COUNT (test code = 241 K/UL 1015) ABSOLUTE NEUTROPHILS (test code 3.95 K/UL = 1066) ABSOLUTE LYMPHOCYTES (test code 2.41 K/UL = 1067) ABSOLUTE MONOCYTES (test code = 0.62 K/UL 1068) ABSOLUTE EOSINOPHILS (test code 0.15 K/UL = 1040) ABSOLUTE BASOPHILS (test code = 0.08 K/UL 1069) ABS IMMATURE GRANULOCYTES (test 0.01 K/UL code = 1020) ABS NUCLEATED RBCS (test code = 0.00 K/UL 20823) CBC W/AUTO [id number] 00:00:00 Test Item Value Reference Range Interpretation Comments WBC (test code = 1001) 7.2 K/UL RBC (test code = 1002) 4.88 M/UL HEMOGLOBIN (test code = 1003) 14.7 G/DL HEMATOCRIT (test code = 1004) 42.1 % MCV (test code = 1005) 86.3 fL MCH (test code = 1006) 30.1 PG MCHC (test code = 1007) 34.9 G/DL RDW (test code = 1038) 12.6 % NEUTROPHILS (test code = 1008) 54.7 % LYMPHOCYTES (test code = 1010) 33.4 % MONOCYTES (test code = 1011) 8.6 % EOSINOPHILS (test code = 1012) 2.1 % BASOPHILS (test code = 1013) 1.1 % IMMATURE GRANULOCYTES (test 0.1 % code = 1036) NUCLEATED RBCS (test code = 0.0 /100WBC'S 1065) PLATELET COUNT (test code = 241 K/UL 1015) ABSOLUTE NEUTROPHILS (test code 3.95 K/UL = 1066) ABSOLUTE LYMPHOCYTES (test code 2.41 K/UL = 1067) ABSOLUTE MONOCYTES (test code = 0.62 K/UL 1068) ABSOLUTE EOSINOPHILS (test code 0.15 K/UL = 1040) ABSOLUTE BASOPHILS (test code = 0.08 K/UL 1069) ABS IMMATURE GRANULOCYTES (test 0.01 K/UL code = 1020) ABS NUCLEATED RBCS (test code = 0.00 K/UL 54915) CBC W/AUTO [id number] 00:00:00 Test Item Value Reference Range Interpretation Comments WBC (test code = 1001) 7.2 K/UL RBC (test code = 1002) 4.88 M/UL HEMOGLOBIN (test code = 1003) 14.7 G/DL HEMATOCRIT (test code = 1004) 42.1 % MCV (test code = 1005) 86.3 fL MCH (test code = 1006) 30.1 PG MCHC (test code = 1007) 34.9 G/DL RDW (test code = 1038) 12.6 % NEUTROPHILS (test code = 1008) 54.7 % LYMPHOCYTES (test code = 1010) 33.4 % MONOCYTES (test code = 1011) 8.6 % EOSINOPHILS (test code = 1012) 2.1 % BASOPHILS (test code = 1013) 1.1 % IMMATURE GRANULOCYTES (test 0.1 % code = 1036) NUCLEATED RBCS (test code = 0.0 /100WBC'S 1065) PLATELET COUNT (test code = 241 K/UL 1015) ABSOLUTE NEUTROPHILS (test code 3.95 K/UL = 1066) ABSOLUTE LYMPHOCYTES (test code 2.41 K/UL = 1067) ABSOLUTE MONOCYTES (test code = 0.62 K/UL 1068) ABSOLUTE EOSINOPHILS (test code 0.15 K/UL = 1040) ABSOLUTE BASOPHILS (test code = 0.08 K/UL 1069) ABS IMMATURE GRANULOCYTES (test 0.01 K/UL code = 1020) ABS NUCLEATED RBCS (test code = 0.00 K/UL 41506) COMPREHENSIVE METABOLIC [id number] 00:00:00 Test Item Value Reference Range Interpretation Comments GLUCOSE (test code = 2217) 171 MG/DL BUN (test code = 2208) 28 MG/DL CREATININE (test code = 2214) 0.84 MG/DL eGFR (2020 CKD-EPI) (test code 79 ML/MIN/1.73 = 00833) CALC BUN/CREAT (test code = 33 RATIO 2235) SODIUM (test code = 2231) 138 MEQ/L POTASSIUM (test code = 2228) 3.4 MEQ/L CHLORIDE (test code = 2215) 98 MEQ/L CARBON DIOXIDE (test code = 29 MEQ/L 2206) CALCIUM (test code = 2209) 10.4 MG/DL PROTEIN, TOTAL (test code = 7.5 G/DL 2228) ALBUMIN (test code = 2201) 4.3 G/DL CALC GLOBULIN (test code = 3.2 G/DL 2240) CALC A/G RATIO (test code = 1.3 RATIO 2234) BILIRUBIN, TOTAL (test code = 0.6 MG/DL 2206) ALKALINE PHOSPHATASE (test 81 U/L code = 2204) AST (test code = 2218) 44 U/L ALT (test code = 2219) 57 U/L COMPREHENSIVE METABOLIC [id number] 00:00:00 Test Item Value Reference Range Interpretation Comments GLUCOSE (test code = 2217) 171 MG/DL BUN (test code = 2208) 28 MG/DL CREATININE (test code = 2214) 0.84 MG/DL eGFR (2020 CKD-EPI) (test code 79 ML/MIN/1.73 = 99611) CALC BUN/CREAT (test code = 33 RATIO 2235) SODIUM (test code = 2231) 138 MEQ/L POTASSIUM (test code = 2228) 3.4 MEQ/L CHLORIDE (test code = 2215) 98 MEQ/L CARBON DIOXIDE (test code = 29 MEQ/L 2206) CALCIUM (test code = 2209) 10.4 MG/DL PROTEIN, TOTAL (test code = 7.5 G/DL 2228) ALBUMIN (test code = 2201) 4.3 G/DL CALC GLOBULIN (test code = 3.2 G/DL 2240) CALC A/G RATIO (test code = 1.3 RATIO 2234) BILIRUBIN, TOTAL (test code = 0.6 MG/DL 2207) ALKALINE PHOSPHATASE (test 81 U/L code = 2204) AST (test code = 2218) 44 U/L ALT (test code = 2219) 57 U/L HEMOGLOBIN [id number] 00:00:00 Test Item Value Reference Range Interpretation Comments HEMOGLOBIN A1c (test code = 98684) 9.0 % HEMOGLOBIN [id number] 00:00:00 Test Item Value Reference Range Interpretation Comments HEMOGLOBIN A1c (test code = 27474) 9.0 % HEMOGLOBIN [id number] 00:00:00 Test Item Value Reference Range Interpretation Comments HEMOGLOBIN A1c (test code = 16111) 9.0 % LIPID [id number] 00:00:00 Test Item Value Reference Range Interpretation Comments CHOLESTEROL (test code = 2210) 177 MG/DL TRIGLYCERIDES (test code = 2232) 173 MG/DL HDL CHOLESTEROL (test code = 2220) 45 MG/DL CALC LDL CHOL (test code = 2237) 103 MG/DL RISK RATIO LDL/HDL (test code = 2.29 RATIO 2238) LIPID [id number] 00:00:00 Test Item Value Reference Range Interpretation Comments CHOLESTEROL (test code = 2210) 177 MG/DL TRIGLYCERIDES (test code = 2232) 173 MG/DL HDL CHOLESTEROL (test code = 2220) 45 MG/DL CALC LDL CHOL (test code = 2237) 103 MG/DL RISK RATIO LDL/HDL (test code = 2.29 RATIO 2238) HEPATITIS C REFLEX [id number] 00:00:00 Test Item Value Reference Range Interpretation Comments HEPATITIS C ANTIBODY (test code = REACTIVE 4675) HEPATITIS C REFLEX [id number] 00:00:00 Test Item Value Reference Range Interpretation Comments HEPATITIS C ANTIBODY (test code = REACTIVE 4675) PROTHROMBIN TIME (PT)2022-04-23 00:00:00 Test Item Value Reference Range Interpretation Comments PROTHROMBIN TIME (PT) (test code 15.7 SECONDS = 1402) INR (test code = 73229) 1.2 PROTHROMBIN TIME (PT)2022-04-23 00:00:00 Test Item Value Reference Range Interpretation Comments PROTHROMBIN TIME (PT) (test code 15.7 SECONDS = 1402) INR (test code = 54111) 1.2 [id number] 00:00:00 Test Item Value Reference Range Interpretation Comments PTT (test code = 1403) 31.9 SECONDS [id number] 00:00:00 Test Item Value Reference Range Interpretation Comments PTT (test code = 1403) 31.9 SECONDS [id number] 00:00:00 Test Item Value Reference Range Interpretation Comments PTT (test code = 1403) 31.9 SECONDS [id number] 00:00:00 Test Item Value Reference Range Interpretation Comments PTT (test code = 1403) 31.9 SECONDS HCV RNA, PCR QUANT [REFLEX]2022-04-23 00:00:00 Test Item Value Reference Range Interpretation Comments HCV RNA, PCR QUANT (test code 1107056 IU/ML = 4571) HCV VIRAL LOG (test code = 6.745 LOGIU/ML 04874) HCV RNA, PCR QUANT [REFLEX]2022-04-23 00:00:00 Test Item Value Reference Range Interpretation Comments HCV RNA, PCR QUANT (test code 7710800 IU/ML = 4571) HCV VIRAL LOG (test code = 6.745 LOGIU/ML 70740) HCV RNA, PCR QUANT [REFLEX]2022-04-23 00:00:00 Test Item Value Reference Range Interpretation Comments HCV RNA, PCR QUANT (test code 0351453 IU/ML = 4571) HCV VIRAL LOG (test code = 6.745 LOGIU/ML 33901) CBC W/AUTO [id number] 00:00:00 Test Item Value Reference Range Interpretation Comments WBC (test code = 1001) 7.2 K/UL RBC (test code = 1002) 4.88 M/UL HEMOGLOBIN (test code = 1003) 14.7 G/DL HEMATOCRIT (test code = 1004) 42.1 % MCV (test code = 1005) 86.3 fL MCH (test code = 1006) 30.1 PG MCHC (test code = 1007) 34.9 G/DL RDW (test code = 1038) 12.6 % NEUTROPHILS (test code = 1008) 54.7 % LYMPHOCYTES (test code = 1010) 33.4 % MONOCYTES (test code = 1011) 8.6 % EOSINOPHILS (test code = 1012) 2.1 % BASOPHILS (test code = 1013) 1.1 % IMMATURE GRANULOCYTES (test 0.1 % code = 1036) NUCLEATED RBCS (test code = 0.0 /100WBC'S 1065) PLATELET COUNT (test code = 241 K/UL 1015) ABSOLUTE NEUTROPHILS (test code 3.95 K/UL = 1066) ABSOLUTE LYMPHOCYTES (test code 2.41 K/UL = 1067) ABSOLUTE MONOCYTES (test code = 0.62 K/UL 1068) ABSOLUTE EOSINOPHILS (test code 0.15 K/UL = 1040) ABSOLUTE BASOPHILS (test code = 0.08 K/UL 1069) ABS IMMATURE GRANULOCYTES (test 0.01 K/UL code = 1020) ABS NUCLEATED RBCS (test code = 0.00 K/UL 42731) CBC W/AUTO [id number] 00:00:00 Test Item Value Reference Range Interpretation Comments WBC (test code = 1001) 7.2 K/UL RBC (test code = 1002) 4.88 M/UL HEMOGLOBIN (test code = 1003) 14.7 G/DL HEMATOCRIT (test code = 1004) 42.1 % MCV (test code = 1005) 86.3 fL MCH (test code = 1006) 30.1 PG MCHC (test code = 1007) 34.9 G/DL RDW (test code = 1038) 12.6 % NEUTROPHILS (test code = 1008) 54.7 % LYMPHOCYTES (test code = 1010) 33.4 % MONOCYTES (test code = 1011) 8.6 % EOSINOPHILS (test code = 1012) 2.1 % BASOPHILS (test code = 1013) 1.1 % IMMATURE GRANULOCYTES (test 0.1 % code = 1036) NUCLEATED RBCS (test code = 0.0 /100WBC'S 1065) PLATELET COUNT (test code = 241 K/UL 1015) ABSOLUTE NEUTROPHILS (test code 3.95 K/UL = 1066) ABSOLUTE LYMPHOCYTES (test code 2.41 K/UL = 1067) ABSOLUTE MONOCYTES (test code = 0.62 K/UL 1068) ABSOLUTE EOSINOPHILS (test code 0.15 K/UL = 1040) ABSOLUTE BASOPHILS (test code = 0.08 K/UL 1069) ABS IMMATURE GRANULOCYTES (test 0.01 K/UL code = 1020) ABS NUCLEATED RBCS (test code = 0.00 K/UL 06514) CBC W/AUTO [id number] 00:00:00 Test Item Value Reference Range Interpretation Comments WBC (test code = 1001) 7.2 K/UL RBC (test code = 1002) 4.88 M/UL HEMOGLOBIN (test code = 1003) 14.7 G/DL HEMATOCRIT (test code = 1004) 42.1 % MCV (test code = 1005) 86.3 fL MCH (test code = 1006) 30.1 PG MCHC (test code = 1007) 34.9 G/DL RDW (test code = 1038) 12.6 % NEUTROPHILS (test code = 1008) 54.7 % LYMPHOCYTES (test code = 1010) 33.4 % MONOCYTES (test code = 1011) 8.6 % EOSINOPHILS (test code = 1012) 2.1 % BASOPHILS (test code = 1013) 1.1 % IMMATURE GRANULOCYTES (test 0.1 % code = 1036) NUCLEATED RBCS (test code = 0.0 /100WBC'S 1065) PLATELET COUNT (test code = 241 K/UL 1015) ABSOLUTE NEUTROPHILS (test code 3.95 K/UL = 1066) ABSOLUTE LYMPHOCYTES (test code 2.41 K/UL = 1067) ABSOLUTE MONOCYTES (test code = 0.62 K/UL 1068) ABSOLUTE EOSINOPHILS (test code 0.15 K/UL = 1040) ABSOLUTE BASOPHILS (test code = 0.08 K/UL 1069) ABS IMMATURE GRANULOCYTES (test 0.01 K/UL code = 1020) ABS NUCLEATED RBCS (test code = 0.00 K/UL 93080) COMPREHENSIVE METABOLIC [id number] 00:00:00 Test Item Value Reference Range Interpretation Comments GLUCOSE (test code = 2217) 171 MG/DL BUN (test code = 2208) 28 MG/DL CREATININE (test code = 2214) 0.84 MG/DL eGFR (2020 CKD-EPI) (test code 79 ML/MIN/1.73 = 03587) CALC BUN/CREAT (test code = 33 RATIO 2235) SODIUM (test code = 2231) 138 MEQ/L POTASSIUM (test code = 2228) 3.4 MEQ/L CHLORIDE (test code = 2215) 98 MEQ/L CARBON DIOXIDE (test code = 29 MEQ/L 2205) CALCIUM (test code = 2209) 10.4 MG/DL PROTEIN, TOTAL (test code = 7.5 G/DL 2228) ALBUMIN (test code = 2201) 4.3 G/DL CALC GLOBULIN (test code = 3.2 G/DL 2240) CALC A/G RATIO (test code = 1.3 RATIO 2234) BILIRUBIN, TOTAL (test code = 0.6 MG/DL 2206) ALKALINE PHOSPHATASE (test 81 U/L code = 2204) AST (test code = 2218) 44 U/L ALT (test code = 2219) 57 U/L COMPREHENSIVE METABOLIC [id number] 00:00:00 Test Item Value Reference Range Interpretation Comments GLUCOSE (test code = 2217) 171 MG/DL BUN (test code = 2208) 28 MG/DL CREATININE (test code = 2214) 0.84 MG/DL eGFR (2020 CKD-EPI) (test code 79 ML/MIN/1.73 = 11539) CALC BUN/CREAT (test code = 33 RATIO 2235) SODIUM (test code = 2231) 138 MEQ/L POTASSIUM (test code = 2228) 3.4 MEQ/L CHLORIDE (test code = 2215) 98 MEQ/L CARBON DIOXIDE (test code = 29 MEQ/L 2205) CALCIUM (test code = 2209) 10.4 MG/DL PROTEIN, TOTAL (test code = 7.5 G/DL 2228) ALBUMIN (test code = 2201) 4.3 G/DL CALC GLOBULIN (test code = 3.2 G/DL 2240) CALC A/G RATIO (test code = 1.3 RATIO 2234) BILIRUBIN, TOTAL (test code = 0.6 MG/DL 7) ALKALINE PHOSPHATASE (test 81 U/L code = 2204) AST (test code = 2218) 44 U/L ALT (test code = 2219) 57 U/L HEMOGLOBIN [id number] 00:00:00 Test Item Value Reference Range Interpretation Comments HEMOGLOBIN A1c (test code = 95563) 9.0 % HEMOGLOBIN [id number] 00:00:00 Test Item Value Reference Range Interpretation Comments HEMOGLOBIN A1c (test code = 96205) 9.0 % HEMOGLOBIN [id number] 00:00:00 Test Item Value Reference Range Interpretation Comments HEMOGLOBIN A1c (test code = 17664) 9.0 % LIPID [id number] 00:00:00 Test Item Value Reference Range Interpretation Comments CHOLESTEROL (test code = 2210) 177 MG/DL TRIGLYCERIDES (test code = 2232) 173 MG/DL HDL CHOLESTEROL (test code = 2220) 45 MG/DL CALC LDL CHOL (test code = 2237) 103 MG/DL RISK RATIO LDL/HDL (test code = 2.29 RATIO 2238) LIPID [id number] 00:00:00 Test Item Value Reference Range Interpretation Comments CHOLESTEROL (test code = 2210) 177 MG/DL TRIGLYCERIDES (test code = 2232) 173 MG/DL HDL CHOLESTEROL (test code = 2220) 45 MG/DL CALC LDL CHOL (test code = 2237) 103 MG/DL RISK RATIO LDL/HDL (test code = 2.29 RATIO 2238) HEPATITIS C REFLEX [id number] 00:00:00 Test Item Value Reference Range Interpretation Comments HEPATITIS C ANTIBODY (test code = REACTIVE 4675) HEPATITIS C REFLEX [id number] 00:00:00 Test Item Value Reference Range Interpretation Comments HEPATITIS C ANTIBODY (test code = REACTIVE 4675) PROTHROMBIN TIME (PT)2022-04-23 00:00:00 Test Item Value Reference Range Interpretation Comments PROTHROMBIN TIME (PT) (test code 15.7 SECONDS = 1402) INR (test code = 44215) 1.2 PROTHROMBIN TIME (PT)2022-04-23 00:00:00 Test Item Value Reference Range Interpretation Comments PROTHROMBIN TIME (PT) (test code 15.7 SECONDS = 1402) INR (test code = 46645) 1.2 [id number] 00:00:00 Test Item Value Reference Range Interpretation Comments PTT (test code = 1403) 31.9 SECONDS [id number] 00:00:00 Test Item Value Reference Range Interpretation Comments PTT (test code = 1403) 31.9 SECONDS [id number] 00:00:00 Test Item Value Reference Range Interpretation Comments PTT (test code = 1403) 31.9 SECONDS [id number] 00:00:00 Test Item Value Reference Range Interpretation Comments PTT (test code = 1403) 31.9 SECONDS HCV RNA, PCR QUANT [REFLEX]2022-04-23 00:00:00 Test Item Value Reference Range Interpretation Comments HCV RNA, PCR QUANT (test code 8128560 IU/ML = 4571) HCV VIRAL LOG (test code = 6.745 LOGIU/ML 19295) HCV RNA, PCR QUANT [REFLEX]2022-04-23 00:00:00 Test Item Value Reference Range Interpretation Comments HCV RNA, PCR QUANT (test code 9445877 IU/ML = 4571) HCV VIRAL LOG (test code = 6.745 LOGIU/ML 78692) HCV RNA, PCR QUANT [REFLEX]2022-04-23 00:00:00 Test Item Value Reference Range Interpretation Comments HCV RNA, PCR QUANT (test code 2333101 IU/ML = 4571) HCV VIRAL LOG (test code = 6.745 LOGIU/ML 93517) SARS-CoV-2 (COVID-19) by RT-PCR (HIGH RISK)2021-04-10 00:00:00 Test Item Value Reference Range Interpretation Comments SARS-CoV-2 INTERPRETATION NEGATIVE (test code = 99311) SOURCE (test code = 31522) NASOPHARYNGEAL SARS-CoV-2 (COVID-19) by RT-PCR (HIGH RISK)2021-04-10 00:00:00 Test Item Value Reference Range Interpretation Comments SARS-CoV-2 INTERPRETATION NEGATIVE (test code = 90794) SOURCE (test code = 23244) NASOPHARYNGEAL SARS-CoV-2 (COVID-19) by RT-PCR (HIGH RISK)2021-04-10 00:00:00 Test Item Value Reference Range Interpretation Comments SARS-CoV-2 INTERPRETATION NEGATIVE (test code = 26519) SOURCE (test code = 67117) NASOPHARYNGEAL SARS-CoV-2 (COVID-19) by RT-PCR (HIGH RISK)2021-04-10 00:00:00 Test Item Value Reference Range Interpretation Comments SARS-CoV-2 INTERPRETATION NEGATIVE (test code = 21216) SOURCE (test code = 98320) NASOPHARYNGEAL SARS-CoV-2 (COVID-19) by RT-PCR (HIGH RISK)2021-04-10 00:00:00 Test Item Value Reference Range Interpretation Comments SARS-CoV-2 INTERPRETATION NEGATIVE (test code = 70569) SOURCE (test code = 80403) NASOPHARYNGEAL SARS-CoV-2 (COVID-19) by RT-PCR (HIGH RISK)2021-04-10 00:00:00 Test Item Value Reference Range Interpretation Comments SARS-CoV-2 INTERPRETATION NEGATIVE (test code = 23612) SOURCE (test code = 19450) NASOPHARYNGEAL SARS-CoV-2 (COVID-19) by RT-PCR (HIGH RISK)2021-04-10 00:00:00 Test Item Value Reference Range Interpretation Comments SARS-CoV-2 INTERPRETATION NEGATIVE (test code = 31579) SOURCE (test code = 93298) NASOPHARYNGEAL SARS-CoV-2 (COVID-19) by RT-PCR (HIGH RISK)2021-04-10 00:00:00 Test Item Value Reference Range Interpretation Comments SARS-CoV-2 INTERPRETATION NEGATIVE (test code = 88164) SOURCE (test code = 40149) NASOPHARYNGEAL SARS-CoV-2 (COVID-19) by RT-PCR (HIGH RISK)2021-04-10 00:00:00 Test Item Value Reference Range Interpretation Comments SARS-CoV-2 INTERPRETATION NEGATIVE (test code = 35291) SOURCE (test code = 95167) NASOPHARYNGEAL SARS-CoV-2 (COVID-19) by RT-PCR (HIGH RISK)2021-04-10 00:00:00 Test Item Value Reference Range Interpretation Comments SARS-CoV-2 INTERPRETATION NEGATIVE (test code = 97206) SOURCE (test code = 45227) NASOPHARYNGEAL SARS-CoV-2 (COVID-19) by RT-PCR (HIGH RISK)2021-04-10 00:00:00 Test Item Value Reference Range Interpretation Comments SARS-CoV-2 INTERPRETATION NEGATIVE (test code = 36317) SOURCE (test code = 27670) NASOPHARYNGEAL SARS-CoV-2 (COVID-19) by RT-PCR (HIGH RISK)2021-04-10 00:00:00 Test Item Value Reference Range Interpretation Comments SARS-CoV-2 INTERPRETATION NEGATIVE (test code = 13703) SOURCE (test code = 13506) NASOPHARYNGEAL SARS-CoV-2 (COVID-19) by RT-PCR (HIGH RISK)2021-04-10 00:00:00 Test Item Value Reference Range Interpretation Comments SARS-CoV-2 INTERPRETATION NEGATIVE (test code = 42656) SOURCE (test code = 19227) NASOPHARYNGEAL SARS-CoV-2 (COVID-19) by RT-PCR (HIGH RISK)2021-04-10 00:00:00 Test Item Value Reference Range Interpretation Comments SARS-CoV-2 INTERPRETATION NEGATIVE (test code = 15333) SOURCE (test code = 23371) NASOPHARYNGEAL SARS-CoV-2 (COVID-19) by RT-PCR (HIGH RISK)2021-04-10 00:00:00 Test Item Value Reference Range Interpretation Comments SARS-CoV-2 INTERPRETATION NEGATIVE (test code = 44704) SOURCE (test code = 59950) NASOPHARYNGEAL SARS-CoV-2 (COVID-19) by RT-PCR (HIGH RISK)2021-04-10 00:00:00 Test Item Value Reference Range Interpretation Comments SARS-CoV-2 INTERPRETATION NEGATIVE (test code = 78300) SOURCE (test code = 22754) NASOPHARYNGEAL SARS-CoV-2 (COVID-19) by RT-PCR (HIGH RISK)2021-04-10 00:00:00 Test Item Value Reference Range Interpretation Comments SARS-CoV-2 INTERPRETATION NEGATIVE (test code = 48487) SOURCE (test code = 64817) NASOPHARYNGEAL COMPREHENSIVE METABOLIC [id number] 00:00:00 Test Item Value Reference Range Interpretation Comments GLUCOSE (test code = 2217) 226 MG/DL BUN (test code = 2208) 15 MG/DL CREATININE (test code = 2214) 0.83 MG/DL eGFR AMER. (test code 89 ML/MIN/1.73 = 13116) eGFR NON- AMER. (test 77 ML/MIN/1.73 code = 15608) CALC BUN/CREAT (test code = 18 RATIO 2235) SODIUM (test code = 2231) 140 MEQ/L POTASSIUM (test code = 2228) 4.0 MEQ/L CHLORIDE (test code = 2215) 102 MEQ/L CARBON DIOXIDE (test code = 26 MEQ/L 2205) CALCIUM (test code = 2209) 10.1 MG/DL PROTEIN, TOTAL (test code = 7.3 G/DL 2228) ALBUMIN (test code = 2201) 4.3 G/DL CALC GLOBULIN (test code = 3.0 G/DL 2240) CALC A/G RATIO (test code = 1.4 RATIO 2234) BILIRUBIN, TOTAL (test code = 0.3 MG/DL 2206) ALKALINE PHOSPHATASE (test 86 U/L code = 2204) AST (test code = 2218) 39 U/L ALT (test code = 2219) 55 U/L COMPREHENSIVE METABOLIC [id number] 00:00:00 Test Item Value Reference Range Interpretation Comments GLUCOSE (test code = 2217) 226 MG/DL BUN (test code = 2208) 15 MG/DL CREATININE (test code = 2214) 0.83 MG/DL eGFR AMER. (test code 89 ML/MIN/1.73 = 91410) eGFR NON- AMER. (test 77 ML/MIN/1.73 code = 10902) CALC BUN/CREAT (test code = 18 RATIO 2235) SODIUM (test code = 2231) 140 MEQ/L POTASSIUM (test code = 2228) 4.0 MEQ/L CHLORIDE (test code = 2215) 102 MEQ/L CARBON DIOXIDE (test code = 26 MEQ/L 2205) CALCIUM (test code = 2209) 10.1 MG/DL PROTEIN, TOTAL (test code = 7.3 G/DL 2228) ALBUMIN (test code = 2201) 4.3 G/DL CALC GLOBULIN (test code = 3.0 G/DL 224) CALC A/G RATIO (test code = 1.4 RATIO 2234) BILIRUBIN, TOTAL (test code = 0.3 MG/DL 2206) ALKALINE PHOSPHATASE (test 86 U/L code = 2204) AST (test code = 2218) 39 U/L ALT (test code = 2219) 55 U/L LIPID [id number] 00:00:00 Test Item Value Reference Range Interpretation Comments CHOLESTEROL (test code = 2210) 173 MG/DL TRIGLYCERIDES (test code = 2232) 261 MG/DL HDL CHOLESTEROL (test code = 2220) 44 MG/DL CALC LDL CHOL (test code = 2237) 95 MG/DL RISK RATIO LDL/HDL (test code = 2.16 RATIO 2238) LIPID [id number] 00:00:00 Test Item Value Reference Range Interpretation Comments CHOLESTEROL (test code = 2210) 173 MG/DL TRIGLYCERIDES (test code = 2232) 261 MG/DL HDL CHOLESTEROL (test code = 2220) 44 MG/DL CALC LDL CHOL (test code = 2237) 95 MG/DL RISK RATIO LDL/HDL (test code = 2.16 RATIO 2238) COMPREHENSIVE METABOLIC [id number] 00:00:00 Test Item Value Reference Range Interpretation Comments GLUCOSE (test code = 2217) 226 MG/DL BUN (test code = 2208) 15 MG/DL CREATININE (test code = 2214) 0.83 MG/DL eGFR AMER. (test code 89 ML/MIN/1.73 = 86791) eGFR NON- AMER. (test 77 ML/MIN/1.73 code = 31525) CALC BUN/CREAT (test code = 18 RATIO 2235) SODIUM (test code = 2231) 140 MEQ/L POTASSIUM (test code = 2228) 4.0 MEQ/L CHLORIDE (test code = 2215) 102 MEQ/L CARBON DIOXIDE (test code = 26 MEQ/L 2205) CALCIUM (test code = 2209) 10.1 MG/DL PROTEIN, TOTAL (test code = 7.3 G/DL 2228) ALBUMIN (test code = 220) 4.3 G/DL CALC GLOBULIN (test code = 3.0 G/DL 2239) CALC A/G RATIO (test code = 1.4 RATIO 223) BILIRUBIN, TOTAL (test code = 0.3 MG/DL 2206) ALKALINE PHOSPHATASE (test 86 U/L code = 220) AST (test code = 2218) 39 U/L ALT (test code = 2219) 55 U/L LIPID [id number] 00:00:00 Test Item Value Reference Range Interpretation Comments CHOLESTEROL (test code = 2210) 173 MG/DL TRIGLYCERIDES (test code = 2232) 261 MG/DL HDL CHOLESTEROL (test code = 2220) 44 MG/DL CALC LDL CHOL (test code = 2237) 95 MG/DL RISK RATIO LDL/HDL (test code = 2.16 RATIO 2238) COMPREHENSIVE METABOLIC [id number] 00:00:00 Test Item Value Reference Range Interpretation Comments GLUCOSE (test code = 2217) 226 MG/DL BUN (test code = 2208) 15 MG/DL CREATININE (test code = 2214) 0.83 MG/DL eGFR AMER. (test code 89 ML/MIN/1.73 = 88197) eGFR NON- AMER. (test 77 ML/MIN/1.73 code = 77825) CALC BUN/CREAT (test code = 18 RATIO 2235) SODIUM (test code = 2231) 140 MEQ/L POTASSIUM (test code = 2228) 4.0 MEQ/L CHLORIDE (test code = 2215) 102 MEQ/L CARBON DIOXIDE (test code = 26 MEQ/L 2205) CALCIUM (test code = 2209) 10.1 MG/DL PROTEIN, TOTAL (test code = 7.3 G/DL 2228) ALBUMIN (test code = 220) 4.3 G/DL CALC GLOBULIN (test code = 3.0 G/DL 2240) CALC A/G RATIO (test code = 1.4 RATIO 2234) BILIRUBIN, TOTAL (test code = 0.3 MG/DL 2207) ALKALINE PHOSPHATASE (test 86 U/L code = 2204) AST (test code = 2218) 39 U/L ALT (test code = 2219) 55 U/L COMPREHENSIVE METABOLIC [id number] 00:00:00 Test Item Value Reference Range Interpretation Comments GLUCOSE (test code = 2217) 226 MG/DL BUN (test code = 2208) 15 MG/DL CREATININE (test code = 2214) 0.83 MG/DL eGFR AMER. (test code 89 ML/MIN/1.73 = 12011) eGFR NON- AMER. (test 77 ML/MIN/1.73 code = 76745) CALC BUN/CREAT (test code = 18 RATIO 2235) SODIUM (test code = 2231) 140 MEQ/L POTASSIUM (test code = 2228) 4.0 MEQ/L CHLORIDE (test code = 2215) 102 MEQ/L CARBON DIOXIDE (test code = 26 MEQ/L 2205) CALCIUM (test code = 2209) 10.1 MG/DL PROTEIN, TOTAL (test code = 7.3 G/DL 2228) ALBUMIN (test code = 2201) 4.3 G/DL CALC GLOBULIN (test code = 3.0 G/DL 2240) CALC A/G RATIO (test code = 1.4 RATIO 2234) BILIRUBIN, TOTAL (test code = 0.3 MG/DL 2207) ALKALINE PHOSPHATASE (test 86 U/L code = 2204) AST (test code = 2218) 39 U/L ALT (test code = 2219) 55 U/L LIPID [id number] 00:00:00 Test Item Value Reference Range Interpretation Comments CHOLESTEROL (test code = 2210) 173 MG/DL TRIGLYCERIDES (test code = 2232) 261 MG/DL HDL CHOLESTEROL (test code = 2220) 44 MG/DL CALC LDL CHOL (test code = 2237) 95 MG/DL RISK RATIO LDL/HDL (test code = 2.16 RATIO 2238) LIPID [id number] 00:00:00 Test Item Value Reference Range Interpretation Comments CHOLESTEROL (test code = 2210) 173 MG/DL TRIGLYCERIDES (test code = 2232) 261 MG/DL HDL CHOLESTEROL (test code = 2220) 44 MG/DL CALC LDL CHOL (test code = 2237) 95 MG/DL RISK RATIO LDL/HDL (test code = 2.16 RATIO 2238) COMPREHENSIVE METABOLIC [id number] 00:00:00 Test Item Value Reference Range Interpretation Comments GLUCOSE (test code = 2217) 226 MG/DL BUN (test code = 2208) 15 MG/DL CREATININE (test code = 2214) 0.83 MG/DL eGFR AMER. (test code 89 ML/MIN/1.73 = 60600) eGFR NON- AMER. (test 77 ML/MIN/1.73 code = 32852) CALC BUN/CREAT (test code = 18 RATIO 2235) SODIUM (test code = 2231) 140 MEQ/L POTASSIUM (test code = 2228) 4.0 MEQ/L CHLORIDE (test code = 2215) 102 MEQ/L CARBON DIOXIDE (test code = 26 MEQ/L 2205) CALCIUM (test code = 2209) 10.1 MG/DL PROTEIN, TOTAL (test code = 7.3 G/DL 2228) ALBUMIN (test code = 2201) 4.3 G/DL CALC GLOBULIN (test code = 3.0 G/DL 0) CALC A/G RATIO (test code = 1.4 RATIO 2233) BILIRUBIN, TOTAL (test code = 0.3 MG/DL 2206) ALKALINE PHOSPHATASE (test 86 U/L code = 2204) AST (test code = 2218) 39 U/L ALT (test code = 2219) 55 U/L COMPREHENSIVE METABOLIC [id number] 00:00:00 Test Item Value Reference Range Interpretation Comments GLUCOSE (test code = 2217) 226 MG/DL BUN (test code = 2208) 15 MG/DL CREATININE (test code = 2214) 0.83 MG/DL eGFR AMER. (test code 89 ML/MIN/1.73 = 16502) eGFR NON- AMER. (test 77 ML/MIN/1.73 code = 16570) CALC BUN/CREAT (test code = 18 RATIO 2235) SODIUM (test code = 2231) 140 MEQ/L POTASSIUM (test code = 2228) 4.0 MEQ/L CHLORIDE (test code = 2215) 102 MEQ/L CARBON DIOXIDE (test code = 26 MEQ/L 2206) CALCIUM (test code = 2209) 10.1 MG/DL PROTEIN, TOTAL (test code = 7.3 G/DL 2228) ALBUMIN (test code = 2201) 4.3 G/DL CALC GLOBULIN (test code = 3.0 G/DL 224) CALC A/G RATIO (test code = 1.4 RATIO 2234) BILIRUBIN, TOTAL (test code = 0.3 MG/DL 2206) ALKALINE PHOSPHATASE (test 86 U/L code = 2204) AST (test code = 2218) 39 U/L ALT (test code = 2219) 55 U/L LIPID [id number] 00:00:00 Test Item Value Reference Range Interpretation Comments CHOLESTEROL (test code = 2210) 173 MG/DL TRIGLYCERIDES (test code = 2232) 261 MG/DL HDL CHOLESTEROL (test code = 2220) 44 MG/DL CALC LDL CHOL (test code = 2237) 95 MG/DL RISK RATIO LDL/HDL (test code = 2.16 RATIO 2238) LIPID [id number] 00:00:00 Test Item Value Reference Range Interpretation Comments CHOLESTEROL (test code = 2210) 173 MG/DL TRIGLYCERIDES (test code = 2232) 261 MG/DL HDL CHOLESTEROL (test code = 2220) 44 MG/DL CALC LDL CHOL (test code = 2237) 95 MG/DL RISK RATIO LDL/HDL (test code = 2.16 RATIO 2238) COMPREHENSIVE METABOLIC [id number] 00:00:00 Test Item Value Reference Range Interpretation Comments GLUCOSE (test code = 2217) 226 MG/DL BUN (test code = 2208) 15 MG/DL CREATININE (test code = 2214) 0.83 MG/DL eGFR AMER. (test code 89 ML/MIN/1.73 = 67083) eGFR NON- AMER. (test 77 ML/MIN/1.73 code = 92097) CALC BUN/CREAT (test code = 18 RATIO 2235) SODIUM (test code = 2231) 140 MEQ/L POTASSIUM (test code = 2228) 4.0 MEQ/L CHLORIDE (test code = 2215) 102 MEQ/L CARBON DIOXIDE (test code = 26 MEQ/L 2205) CALCIUM (test code = 2209) 10.1 MG/DL PROTEIN, TOTAL (test code = 7.3 G/DL 2228) ALBUMIN (test code = 2201) 4.3 G/DL CALC GLOBULIN (test code = 3.0 G/DL 2240) CALC A/G RATIO (test code = 1.4 RATIO 2234) BILIRUBIN, TOTAL (test code = 0.3 MG/DL 2206) ALKALINE PHOSPHATASE (test 86 U/L code = 2204) AST (test code = 2218) 39 U/L ALT (test code = 2219) 55 U/L COMPREHENSIVE METABOLIC [id number] 00:00:00 Test Item Value Reference Range Interpretation Comments GLUCOSE (test code = 2217) 226 MG/DL BUN (test code = 2208) 15 MG/DL CREATININE (test code = 2214) 0.83 MG/DL eGFR AMER. (test code 89 ML/MIN/1.73 = 02487) eGFR NON- AMER. (test 77 ML/MIN/1.73 code = 19804) CALC BUN/CREAT (test code = 18 RATIO 2235) SODIUM (test code = 2231) 140 MEQ/L POTASSIUM (test code = 2228) 4.0 MEQ/L CHLORIDE (test code = 2215) 102 MEQ/L CARBON DIOXIDE (test code = 26 MEQ/L 2206) CALCIUM (test code = 2209) 10.1 MG/DL PROTEIN, TOTAL (test code = 7.3 G/DL 2228) ALBUMIN (test code = 2201) 4.3 G/DL CALC GLOBULIN (test code = 3.0 G/DL 2240) CALC A/G RATIO (test code = 1.4 RATIO 2234) BILIRUBIN, TOTAL (test code = 0.3 MG/DL 2206) ALKALINE PHOSPHATASE (test 86 U/L code = 2204) AST (test code = 2218) 39 U/L ALT (test code = 2219) 55 U/L LIPID [id number] 00:00:00 Test Item Value Reference Range Interpretation Comments CHOLESTEROL (test code = 2210) 173 MG/DL TRIGLYCERIDES (test code = 2232) 261 MG/DL HDL CHOLESTEROL (test code = 2220) 44 MG/DL CALC LDL CHOL (test code = 2237) 95 MG/DL RISK RATIO LDL/HDL (test code = 2.16 RATIO 2238) LIPID [id number] 00:00:00 Test Item Value Reference Range Interpretation Comments CHOLESTEROL (test code = 2210) 173 MG/DL TRIGLYCERIDES (test code = 2232) 261 MG/DL HDL CHOLESTEROL (test code = 2220) 44 MG/DL CALC LDL CHOL (test code = 2237) 95 MG/DL RISK RATIO LDL/HDL (test code = 2.16 RATIO 2238) COMPREHENSIVE METABOLIC [id number] 00:00:00 Test Item Value Reference Range Interpretation Comments GLUCOSE (test code = 2217) 226 MG/DL BUN (test code = 2208) 15 MG/DL CREATININE (test code = 2214) 0.83 MG/DL eGFR AMER. (test code 89 ML/MIN/1.73 = 84740) eGFR NON- AMER. (test 77 ML/MIN/1.73 code = 16802) CALC BUN/CREAT (test code = 18 RATIO 2235) SODIUM (test code = 2231) 140 MEQ/L POTASSIUM (test code = 2228) 4.0 MEQ/L CHLORIDE (test code = 2215) 102 MEQ/L CARBON DIOXIDE (test code = 26 MEQ/L 2205) CALCIUM (test code = 2209) 10.1 MG/DL PROTEIN, TOTAL (test code = 7.3 G/DL 2228) ALBUMIN (test code = 2201) 4.3 G/DL CALC GLOBULIN (test code = 3.0 G/DL 0) CALC A/G RATIO (test code = 1.4 RATIO 4) BILIRUBIN, TOTAL (test code = 0.3 MG/DL 2206) ALKALINE PHOSPHATASE (test 86 U/L code = 2204) AST (test code = 2218) 39 U/L ALT (test code = 2219) 55 U/L COMPREHENSIVE METABOLIC [id number] 00:00:00 Test Item Value Reference Range Interpretation Comments GLUCOSE (test code = 2217) 226 MG/DL BUN (test code = 2208) 15 MG/DL CREATININE (test code = 2214) 0.83 MG/DL eGFR AMER. (test code 89 ML/MIN/1.73 = 73404) eGFR NON- AMER. (test 77 ML/MIN/1.73 code = 59535) CALC BUN/CREAT (test code = 18 RATIO 2235) SODIUM (test code = 2231) 140 MEQ/L POTASSIUM (test code = 2228) 4.0 MEQ/L CHLORIDE (test code = 2215) 102 MEQ/L CARBON DIOXIDE (test code = 26 MEQ/L 2205) CALCIUM (test code = 2209) 10.1 MG/DL PROTEIN, TOTAL (test code = 7.3 G/DL 2228) ALBUMIN (test code = 2201) 4.3 G/DL CALC GLOBULIN (test code = 3.0 G/DL 2239) CALC A/G RATIO (test code = 1.4 RATIO 2234) BILIRUBIN, TOTAL (test code = 0.3 MG/DL 2206) ALKALINE PHOSPHATASE (test 86 U/L code = 2204) AST (test code = 2218) 39 U/L ALT (test code = 2219) 55 U/L LIPID [id number] 00:00:00 Test Item Value Reference Range Interpretation Comments CHOLESTEROL (test code = 2210) 173 MG/DL TRIGLYCERIDES (test code = 2232) 261 MG/DL HDL CHOLESTEROL (test code = 2220) 44 MG/DL CALC LDL CHOL (test code = 2237) 95 MG/DL RISK RATIO LDL/HDL (test code = 2.16 RATIO 2238) LIPID [id number] 00:00:00 Test Item Value Reference Range Interpretation Comments CHOLESTEROL (test code = 2210) 173 MG/DL TRIGLYCERIDES (test code = 2232) 261 MG/DL HDL CHOLESTEROL (test code = 2220) 44 MG/DL CALC LDL CHOL (test code = 2237) 95 MG/DL RISK RATIO LDL/HDL (test code = 2.16 RATIO 2238) COMPREHENSIVE METABOLIC [id number] 00:00:00 Test Item Value Reference Range Interpretation Comments GLUCOSE (test code = 2217) 226 MG/DL BUN (test code = 2208) 15 MG/DL CREATININE (test code = 2214) 0.83 MG/DL eGFR AMER. (test code 89 ML/MIN/1.73 = 62984) eGFR NON- AMER. (test 77 ML/MIN/1.73 code = 32307) CALC BUN/CREAT (test code = 18 RATIO 2235) SODIUM (test code = 2231) 140 MEQ/L POTASSIUM (test code = 2228) 4.0 MEQ/L CHLORIDE (test code = 2215) 102 MEQ/L CARBON DIOXIDE (test code = 26 MEQ/L 2205) CALCIUM (test code = 2209) 10.1 MG/DL PROTEIN, TOTAL (test code = 7.3 G/DL 222) ALBUMIN (test code = 2201) 4.3 G/DL CALC GLOBULIN (test code = 3.0 G/DL 2240) CALC A/G RATIO (test code = 1.4 RATIO 2234) BILIRUBIN, TOTAL (test code = 0.3 MG/DL 220) ALKALINE PHOSPHATASE (test 86 U/L code = 2204) AST (test code = 2218) 39 U/L ALT (test code = 2219) 55 U/L COMPREHENSIVE METABOLIC [id number] 00:00:00 Test Item Value Reference Range Interpretation Comments GLUCOSE (test code = 2217) 226 MG/DL BUN (test code = 2208) 15 MG/DL CREATININE (test code = 2214) 0.83 MG/DL eGFR AMER. (test code 89 ML/MIN/1.73 = 82508) eGFR NON- AMER. (test 77 ML/MIN/1.73 code = 29488) CALC BUN/CREAT (test code = 18 RATIO 2235) SODIUM (test code = 2231) 140 MEQ/L POTASSIUM (test code = 2228) 4.0 MEQ/L CHLORIDE (test code = 2215) 102 MEQ/L CARBON DIOXIDE (test code = 26 MEQ/L 2205) CALCIUM (test code = 2209) 10.1 MG/DL PROTEIN, TOTAL (test code = 7.3 G/DL 2228) ALBUMIN (test code = 2201) 4.3 G/DL CALC GLOBULIN (test code = 3.0 G/DL 2240) CALC A/G RATIO (test code = 1.4 RATIO 2234) BILIRUBIN, TOTAL (test code = 0.3 MG/DL 220) ALKALINE PHOSPHATASE (test 86 U/L code = 2204) AST (test code = 2218) 39 U/L ALT (test code = 2219) 55 U/L LIPID [id number] 00:00:00 Test Item Value Reference Range Interpretation Comments CHOLESTEROL (test code = 2210) 173 MG/DL TRIGLYCERIDES (test code = 2232) 261 MG/DL HDL CHOLESTEROL (test code = 2220) 44 MG/DL CALC LDL CHOL (test code = 2237) 95 MG/DL RISK RATIO LDL/HDL (test code = 2.16 RATIO 2238) LIPID [id number] 00:00:00 Test Item Value Reference Range Interpretation Comments CHOLESTEROL (test code = 2210) 173 MG/DL TRIGLYCERIDES (test code = 2232) 261 MG/DL HDL CHOLESTEROL (test code = 2220) 44 MG/DL CALC LDL CHOL (test code = 2237) 95 MG/DL RISK RATIO LDL/HDL (test code = 2.16 RATIO 2238) COMPREHENSIVE METABOLIC [id number] 00:00:00 Test Item Value Reference Range Interpretation Comments GLUCOSE (test code = 2217) 226 MG/DL BUN (test code = 2208) 15 MG/DL CREATININE (test code = 2214) 0.83 MG/DL eGFR AMER. (test code 89 ML/MIN/1.73 = 19966) eGFR NON- AMER. (test 77 ML/MIN/1.73 code = 07613) CALC BUN/CREAT (test code = 18 RATIO 2235) SODIUM (test code = 2231) 140 MEQ/L POTASSIUM (test code = 2228) 4.0 MEQ/L CHLORIDE (test code = 2215) 102 MEQ/L CARBON DIOXIDE (test code = 26 MEQ/L 2205) CALCIUM (test code = 2209) 10.1 MG/DL PROTEIN, TOTAL (test code = 7.3 G/DL 2228) ALBUMIN (test code = 2201) 4.3 G/DL CALC GLOBULIN (test code = 3.0 G/DL 2240) CALC A/G RATIO (test code = 1.4 RATIO 2234) BILIRUBIN, TOTAL (test code = 0.3 MG/DL 2206) ALKALINE PHOSPHATASE (test 86 U/L code = 2204) AST (test code = 2218) 39 U/L ALT (test code = 2219) 55 U/L COMPREHENSIVE METABOLIC [id number] 00:00:00 Test Item Value Reference Range Interpretation Comments GLUCOSE (test code = 2217) 226 MG/DL BUN (test code = 2208) 15 MG/DL CREATININE (test code = 2214) 0.83 MG/DL eGFR AMER. (test code 89 ML/MIN/1.73 = 97915) eGFR NON- AMER. (test 77 ML/MIN/1.73 code = 34447) CALC BUN/CREAT (test code = 18 RATIO 2235) SODIUM (test code = 2231) 140 MEQ/L POTASSIUM (test code = 2228) 4.0 MEQ/L CHLORIDE (test code = 2215) 102 MEQ/L CARBON DIOXIDE (test code = 26 MEQ/L 2205) CALCIUM (test code = 2209) 10.1 MG/DL PROTEIN, TOTAL (test code = 7.3 G/DL 2228) ALBUMIN (test code = 2201) 4.3 G/DL CALC GLOBULIN (test code = 3.0 G/DL 2239) CALC A/G RATIO (test code = 1.4 RATIO 4) BILIRUBIN, TOTAL (test code = 0.3 MG/DL 2206) ALKALINE PHOSPHATASE (test 86 U/L code = 2204) AST (test code = 2218) 39 U/L ALT (test code = 2219) 55 U/L LIPID [id number] 00:00:00 Test Item Value Reference Range Interpretation Comments CHOLESTEROL (test code = 2210) 173 MG/DL TRIGLYCERIDES (test code = 2232) 261 MG/DL HDL CHOLESTEROL (test code = 2220) 44 MG/DL CALC LDL CHOL (test code = 2237) 95 MG/DL RISK RATIO LDL/HDL (test code = 2.16 RATIO 2238) LIPID [id number] 00:00:00 Test Item Value Reference Range Interpretation Comments CHOLESTEROL (test code = 2210) 173 MG/DL TRIGLYCERIDES (test code = 2232) 261 MG/DL HDL CHOLESTEROL (test code = 2220) 44 MG/DL CALC LDL CHOL (test code = 2237) 95 MG/DL RISK RATIO LDL/HDL (test code = 2.16 RATIO 2238) COMPREHENSIVE METABOLIC [id number] 00:00:00 Test Item Value Reference Range Interpretation Comments GLUCOSE (test code = 2217) 226 MG/DL BUN (test code = 2208) 15 MG/DL CREATININE (test code = 2214) 0.83 MG/DL eGFR AMER. (test code 89 ML/MIN/1.73 = 70658) eGFR NON- AMER. (test 77 ML/MIN/1.73 code = 27313) CALC BUN/CREAT (test code = 18 RATIO 2235) SODIUM (test code = 2231) 140 MEQ/L POTASSIUM (test code = 2228) 4.0 MEQ/L CHLORIDE (test code = 2215) 102 MEQ/L CARBON DIOXIDE (test code = 26 MEQ/L 2205) CALCIUM (test code = 2209) 10.1 MG/DL PROTEIN, TOTAL (test code = 7.3 G/DL 2228) ALBUMIN (test code = 2201) 4.3 G/DL CALC GLOBULIN (test code = 3.0 G/DL 2240) CALC A/G RATIO (test code = 1.4 RATIO 2234) BILIRUBIN, TOTAL (test code = 0.3 MG/DL 2206) ALKALINE PHOSPHATASE (test 86 U/L code = 2204) AST (test code = 2218) 39 U/L ALT (test code = 2219) 55 U/L COMPREHENSIVE METABOLIC [id number] 00:00:00 Test Item Value Reference Range Interpretation Comments GLUCOSE (test code = 2217) 226 MG/DL BUN (test code = 2208) 15 MG/DL CREATININE (test code = 2214) 0.83 MG/DL eGFR AMER. (test code 89 ML/MIN/1.73 = 51074) eGFR NON- AMER. (test 77 ML/MIN/1.73 code = 52406) CALC BUN/CREAT (test code = 18 RATIO 2235) SODIUM (test code = 2231) 140 MEQ/L POTASSIUM (test code = 2228) 4.0 MEQ/L CHLORIDE (test code = 2215) 102 MEQ/L CARBON DIOXIDE (test code = 26 MEQ/L 2205) CALCIUM (test code = 2209) 10.1 MG/DL PROTEIN, TOTAL (test code = 7.3 G/DL 2228) ALBUMIN (test code = 2201) 4.3 G/DL CALC GLOBULIN (test code = 3.0 G/DL 2240) CALC A/G RATIO (test code = 1.4 RATIO 2234) BILIRUBIN, TOTAL (test code = 0.3 MG/DL 2206) ALKALINE PHOSPHATASE (test 86 U/L code = 2204) AST (test code = 2218) 39 U/L ALT (test code = 2219) 55 U/L LIPID [id number] 00:00:00 Test Item Value Reference Range Interpretation Comments CHOLESTEROL (test code = 2210) 173 MG/DL TRIGLYCERIDES (test code = 2232) 261 MG/DL HDL CHOLESTEROL (test code = 2220) 44 MG/DL CALC LDL CHOL (test code = 2237) 95 MG/DL RISK RATIO LDL/HDL (test code = 2.16 RATIO 2238) LIPID [id number] 00:00:00 Test Item Value Reference Range Interpretation Comments CHOLESTEROL (test code = 2210) 173 MG/DL TRIGLYCERIDES (test code = 2232) 261 MG/DL HDL CHOLESTEROL (test code = 2220) 44 MG/DL CALC LDL CHOL (test code = 2237) 95 MG/DL RISK RATIO LDL/HDL (test code = 2.16 RATIO 2238) SARS-CoV-2 (COVID-19) by RT-PCR (HIGH RISK)2020-07-27 00:00:00 Test Item Value Reference Range Interpretation Comments SARS-CoV-2 INTERPRETATION (test POSITIVE code = 52041) SOURCE (test code = 10538) NOT SPECIFIED SARS-CoV-2 (COVID-19) by RT-PCR (HIGH RISK)2020-07-27 00:00:00 Test Item Value Reference Range Interpretation Comments SARS-CoV-2 INTERPRETATION (test POSITIVE code = 80750) SOURCE (test code = 80020) NOT SPECIFIED SARS-CoV-2 (COVID-19) by RT-PCR (HIGH RISK)2020-07-27 00:00:00 Test Item Value Reference Range Interpretation Comments SARS-CoV-2 INTERPRETATION (test POSITIVE code = 94283) SOURCE (test code = 46577) NOT SPECIFIED SARS-CoV-2 (COVID-19) by RT-PCR (HIGH RISK)2020-07-27 00:00:00 Test Item Value Reference Range Interpretation Comments SARS-CoV-2 INTERPRETATION (test POSITIVE code = 23327) SOURCE (test code = 78672) NOT SPECIFIED SARS-CoV-2 (COVID-19) by RT-PCR (HIGH RISK)2020-07-27 00:00:00 Test Item Value Reference Range Interpretation Comments SARS-CoV-2 INTERPRETATION (test POSITIVE code = 71946) SOURCE (test code = 02168) NOT SPECIFIED SARS-CoV-2 (COVID-19) by RT-PCR (HIGH RISK)2020-07-27 00:00:00 Test Item Value Reference Range Interpretation Comments SARS-CoV-2 INTERPRETATION (test POSITIVE code = 08681) SOURCE (test code = 62304) NOT SPECIFIED SARS-CoV-2 (COVID-19) by RT-PCR (HIGH RISK)2020-07-27 00:00:00 Test Item Value Reference Range Interpretation Comments SARS-CoV-2 INTERPRETATION (test POSITIVE code = 69132) SOURCE (test code = 35956) NOT SPECIFIED SARS-CoV-2 (COVID-19) by RT-PCR (HIGH RISK)2020-07-27 00:00:00 Test Item Value Reference Range Interpretation Comments SARS-CoV-2 INTERPRETATION (test POSITIVE code = 65171) SOURCE (test code = 73979) NOT SPECIFIED SARS-CoV-2 (COVID-19) by RT-PCR (HIGH RISK)2020-07-27 00:00:00 Test Item Value Reference Range Interpretation Comments SARS-CoV-2 INTERPRETATION (test POSITIVE code = 27143) SOURCE (test code = 32818) NOT SPECIFIED SARS-CoV-2 (COVID-19) by RT-PCR (HIGH RISK)2020-07-27 00:00:00 Test Item Value Reference Range Interpretation Comments SARS-CoV-2 INTERPRETATION (test POSITIVE code = 55586) SOURCE (test code = 77212) NOT SPECIFIED SARS-CoV-2 (COVID-19) by RT-PCR (HIGH RISK)2020-07-27 00:00:00 Test Item Value Reference Range Interpretation Comments SARS-CoV-2 INTERPRETATION (test POSITIVE code = 63797) SOURCE (test code = 94562) NOT SPECIFIED SARS-CoV-2 (COVID-19) by RT-PCR (HIGH RISK)2020-07-27 00:00:00 Test Item Value Reference Range Interpretation Comments SARS-CoV-2 INTERPRETATION (test POSITIVE code = 55201) SOURCE (test code = 21892) NOT SPECIFIED SARS-CoV-2 (COVID-19) by RT-PCR (HIGH RISK)2020-07-27 00:00:00 Test Item Value Reference Range Interpretation Comments SARS-CoV-2 INTERPRETATION (test POSITIVE code = 09926) SOURCE (test code = 97015) NOT SPECIFIED SARS-CoV-2 (COVID-19) by RT-PCR (HIGH RISK)2020-07-27 00:00:00 Test Item Value Reference Range Interpretation Comments SARS-CoV-2 INTERPRETATION (test POSITIVE code = 34783) SOURCE (test code = 62628) NOT SPECIFIED SARS-CoV-2 (COVID-19) by RT-PCR (HIGH RISK)2020-07-27 00:00:00 Test Item Value Reference Range Interpretation Comments SARS-CoV-2 INTERPRETATION (test POSITIVE code = 17576) SOURCE (test code = 21842) NOT SPECIFIED SARS-CoV-2 (COVID-19) by RT-PCR (HIGH RISK)2020-07-27 00:00:00 Test Item Value Reference Range Interpretation Comments SARS-CoV-2 INTERPRETATION (test POSITIVE code = 91715) SOURCE (test code = 28378) NOT SPECIFIED SARS-CoV-2 (COVID-19) by RT-PCR (HIGH RISK)2020-07-27 00:00:00 Test Item Value Reference Range Interpretation Comments SARS-CoV-2 INTERPRETATION (test POSITIVE code = 48176) SOURCE (test code = 51862) NOT SPECIFIED HEPATITIS C [id number] 00:00:00 Test Item Value Reference Range Interpretation Comments HEPATITIS C GENOTYPE (test code = 1a 04707) HEPATITIS C [id number] 00:00:00 Test Item Value Reference Range Interpretation Comments HEPATITIS C GENOTYPE (test code = 1a 96383) HEPATITIS C [id number] 00:00:00 Test Item Value Reference Range Interpretation Comments HEPATITIS C GENOTYPE (test code = 1a 46819) HEPATITIS C [id number] 00:00:00 Test Item Value Reference Range Interpretation Comments HEPATITIS C GENOTYPE (test code = 1a 46229) HEPATITIS C [id number] 00:00:00 Test Item Value Reference Range Interpretation Comments HEPATITIS C GENOTYPE (test code = 1a 52216) HEPATITIS C [id number] 00:00:00 Test Item Value Reference Range Interpretation Comments HEPATITIS C GENOTYPE (test code = 1a 16810) HEPATITIS C [id number] 00:00:00 Test Item Value Reference Range Interpretation Comments HEPATITIS C GENOTYPE (test code = 1a 60979) HEPATITIS C [id number] 00:00:00 Test Item Value Reference Range Interpretation Comments HEPATITIS C GENOTYPE (test code = 1a 55981) HEPATITIS C [id number] 00:00:00 Test Item Value Reference Range Interpretation Comments HEPATITIS C GENOTYPE (test code = 1a 70527) HEPATITIS C [id number] 00:00:00 Test Item Value Reference Range Interpretation Comments HEPATITIS C GENOTYPE (test code = 1a 73020) HEPATITIS C [id number] 00:00:00 Test Item Value Reference Range Interpretation Comments HEPATITIS C GENOTYPE (test code = 1a 09298) HEPATITIS C [id number] 00:00:00 Test Item Value Reference Range Interpretation Comments HEPATITIS C GENOTYPE (test code = 1a 65349) HEPATITIS C [id number] 00:00:00 Test Item Value Reference Range Interpretation Comments HEPATITIS C GENOTYPE (test code = 1a 50208) HEPATITIS C [id number] 00:00:00 Test Item Value Reference Range Interpretation Comments HEPATITIS C GENOTYPE (test code = 1a 58661) HEPATITIS C [id number] 00:00:00 Test Item Value Reference Range Interpretation Comments HEPATITIS C GENOTYPE (test code = 1a 73236) HEPATITIS C [id number] 00:00:00 Test Item Value Reference Range Interpretation Comments HEPATITIS C GENOTYPE (test code = 1a 29817) HEPATITIS C [id number] 00:00:00 Test Item Value Reference Range Interpretation Comments HEPATITIS C GENOTYPE (test code = 1a 72527) HCV RNA, PCR QUAL/[id number] 00:00:00 Test Item Value Reference Range Interpretation Comments HCV RNA, PCR QUANT (test code 3536966 IU/ML = 4571) HCV VIRAL LOG (test code = 6.860 LOGIU/ML 41586) HCV QUALITATIVE INTERP (test POSITIVE code = 06008) HCV RNA, PCR QUAL/[id number] 00:00:00 Test Item Value Reference Range Interpretation Comments HCV RNA, PCR QUANT (test code 1267696 IU/ML = 4571) HCV VIRAL LOG (test code = 6.860 LOGIU/ML 62506) HCV QUALITATIVE INTERP (test POSITIVE code = 52312) HCV RNA, PCR QUAL/[id number] 00:00:00 Test Item Value Reference Range Interpretation Comments HCV RNA, PCR QUANT (test code 2166382 IU/ML = 4571) HCV VIRAL LOG (test code = 6.860 LOGIU/ML 22587) HCV QUALITATIVE INTERP (test POSITIVE code = 09565) HCV RNA, PCR QUAL/[id number] 00:00:00 Test Item Value Reference Range Interpretation Comments HCV RNA, PCR QUANT (test code 0737492 IU/ML = 4571) HCV VIRAL LOG (test code = 6.860 LOGIU/ML 55133) HCV QUALITATIVE INTERP (test POSITIVE code = 51749) HCV RNA, PCR QUAL/[id number] 00:00:00 Test Item Value Reference Range Interpretation Comments HCV RNA, PCR QUANT (test code 9451806 IU/ML = 4571) HCV VIRAL LOG (test code = 6.860 LOGIU/ML 68592) HCV QUALITATIVE INTERP (test POSITIVE code = 49971) HCV RNA, PCR QUAL/[id number] 00:00:00 Test Item Value Reference Range Interpretation Comments HCV RNA, PCR QUANT (test code 5739189 IU/ML = 4571) HCV VIRAL LOG (test code = 6.860 LOGIU/ML 73546) HCV QUALITATIVE INTERP (test POSITIVE code = 11083) HCV RNA, PCR QUAL/[id number] 00:00:00 Test Item Value Reference Range Interpretation Comments HCV RNA, PCR QUANT (test code 2983170 IU/ML = 4571) HCV VIRAL LOG (test code = 6.860 LOGIU/ML 80956) HCV QUALITATIVE INTERP (test POSITIVE code = 99010) HCV RNA, PCR QUAL/[id number] 00:00:00 Test Item Value Reference Range Interpretation Comments HCV RNA, PCR QUANT (test code 3220493 IU/ML = 4571) HCV VIRAL LOG (test code = 6.860 LOGIU/ML 81350) HCV QUALITATIVE INTERP (test POSITIVE code = 07624) HCV RNA, PCR QUAL/[id number] 00:00:00 Test Item Value Reference Range Interpretation Comments HCV RNA, PCR QUANT (test code 0770516 IU/ML = 4571) HCV VIRAL LOG (test code = 6.860 LOGIU/ML 81885) HCV QUALITATIVE INTERP (test POSITIVE code = 81282) HCV RNA, PCR QUAL/[id number] 00:00:00 Test Item Value Reference Range Interpretation Comments HCV RNA, PCR QUANT (test code 1725865 IU/ML = 4571) HCV VIRAL LOG (test code = 6.860 LOGIU/ML 89351) HCV QUALITATIVE INTERP (test POSITIVE code = 70757) HCV RNA, PCR QUAL/[id number] 00:00:00 Test Item Value Reference Range Interpretation Comments HCV RNA, PCR QUANT (test code 7101586 IU/ML = 4571) HCV VIRAL LOG (test code = 6.860 LOGIU/ML 10907) HCV QUALITATIVE INTERP (test POSITIVE code = 25274) HCV RNA, PCR QUAL/[id number] 00:00:00 Test Item Value Reference Range Interpretation Comments HCV RNA, PCR QUANT (test code 7237177 IU/ML = 4571) HCV VIRAL LOG (test code = 6.860 LOGIU/ML 58274) HCV QUALITATIVE INTERP (test POSITIVE code = 84627) HCV RNA, PCR QUAL/[id number] 00:00:00 Test Item Value Reference Range Interpretation Comments HCV RNA, PCR QUANT (test code 0959990 IU/ML = 4571) HCV VIRAL LOG (test code = 6.860 LOGIU/ML 25549) HCV QUALITATIVE INTERP (test POSITIVE code = 47020) HCV RNA, PCR QUAL/[id number] 00:00:00 Test Item Value Reference Range Interpretation Comments HCV RNA, PCR QUANT (test code 8729794 IU/ML = 4571) HCV VIRAL LOG (test code = 6.860 LOGIU/ML 79107) HCV QUALITATIVE INTERP (test POSITIVE code = 13077) HCV RNA, PCR QUAL/[id number] 00:00:00 Test Item Value Reference Range Interpretation Comments HCV RNA, PCR QUANT (test code 8357943 IU/ML = 4571) HCV VIRAL LOG (test code = 6.860 LOGIU/ML 58059) HCV QUALITATIVE INTERP (test POSITIVE code = 71305) HCV RNA, PCR QUAL/[id number] 00:00:00 Test Item Value Reference Range Interpretation Comments HCV RNA, PCR QUANT (test code 3508373 IU/ML = 4571) HCV VIRAL LOG (test code = 6.860 LOGIU/ML 82213) HCV QUALITATIVE INTERP (test POSITIVE code = 34005) HCV RNA, PCR QUAL/[id number] 00:00:00 Test Item Value Reference Range Interpretation Comments HCV RNA, PCR QUANT (test code 4600714 IU/ML = 4571) HCV VIRAL LOG (test code = 6.860 LOGIU/ML 96521) HCV QUALITATIVE INTERP (test POSITIVE code = 49301) HCV RNA, PCR QUAL/[id number] 00:00:00 Test Item Value Reference Range Interpretation Comments HCV RNA, PCR QUANT (test code 4223940 IU/ML = 4571) HCV VIRAL LOG (test code = 6.860 LOGIU/ML 87462) HCV QUALITATIVE INTERP (test POSITIVE code = 38317) HCV RNA, PCR QUAL/[id number] 00:00:00 Test Item Value Reference Range Interpretation Comments HCV RNA, PCR QUANT (test code 3723775 IU/ML = 4571) HCV VIRAL LOG (test code = 6.860 LOGIU/ML 64396) HCV QUALITATIVE INTERP (test POSITIVE code = 71458) HCV RNA, PCR QUAL/[id number] 00:00:00 Test Item Value Reference Range Interpretation Comments HCV RNA, PCR QUANT (test code 2848549 IU/ML = 4571) HCV VIRAL LOG (test code = 6.860 LOGIU/ML 19979) HCV QUALITATIVE INTERP (test POSITIVE code = 00524) HCV RNA, PCR QUAL/[id number] 00:00:00 Test Item Value Reference Range Interpretation Comments HCV RNA, PCR QUANT (test code 8005374 IU/ML = 4571) HCV VIRAL LOG (test code = 6.860 LOGIU/ML 98486) HCV QUALITATIVE INTERP (test POSITIVE code = 67900) HCV RNA, PCR QUAL/[id number] 00:00:00 Test Item Value Reference Range Interpretation Comments HCV RNA, PCR QUANT (test code 8301257 IU/ML = 4571) HCV VIRAL LOG (test code = 6.860 LOGIU/ML 57930) HCV QUALITATIVE INTERP (test POSITIVE code = 24521) HCV RNA, PCR QUAL/[id number] 00:00:00 Test Item Value Reference Range Interpretation Comments HCV RNA, PCR QUANT (test code 3288729 IU/ML = 4571) HCV VIRAL LOG (test code = 6.860 LOGIU/ML 78994) HCV QUALITATIVE INTERP (test POSITIVE code = 30827) HCV RNA, PCR QUAL/[id number] 00:00:00 Test Item Value Reference Range Interpretation Comments HCV RNA, PCR QUANT (test code 7038960 IU/ML = 4571) HCV VIRAL LOG (test code = 6.860 LOGIU/ML 68722) HCV QUALITATIVE INTERP (test POSITIVE code = 82789) HCV RNA, PCR QUAL/[id number] 00:00:00 Test Item Value Reference Range Interpretation Comments HCV RNA, PCR QUANT (test code 5581395 IU/ML = 4571) HCV VIRAL LOG (test code = 6.860 LOGIU/ML 91201) HCV QUALITATIVE INTERP (test POSITIVE code = 35010) HCV RNA, PCR QUAL/[id number] 00:00:00 Test Item Value Reference Range Interpretation Comments HCV RNA, PCR QUANT (test code 8610687 IU/ML = 4571) HCV VIRAL LOG (test code = 6.860 LOGIU/ML 75062) HCV QUALITATIVE INTERP (test POSITIVE code = 35590) HEPATITIS PROFILE (A,B,C)2020-05-19 00:00:00 Test Item Value Reference Range Interpretation Comments HEPATITIS A TOTAL AB (test code NON-REACTIVE = 2725) HEPATITIS B SURF AG (test code = NON-REACTIVE 2739) HEP B CORE TOTAL AB (test code = NON-REACTIVE 2729) HEPATITIS B SURFACE AB (test NON-REACTIVE code = 2737) HEPATITIS C ANTIBODY (test code REACTIVE = 4675) INTERPRETATION HEPATITIS A: (NOTE) (test code = 2552) INTERPRETATION HEPATITIS B: (NOTE) (test code = 28776) INTERPRETATION HEPATITIS C: (NOTE) (test code = 28441) HEPATITIS PROFILE (A,B,C)2020-05-19 00:00:00 Test Item Value Reference Range Interpretation Comments HEPATITIS A TOTAL AB (test code NON-REACTIVE = 2725) HEPATITIS B SURF AG (test code = NON-REACTIVE 2739) HEP B CORE TOTAL AB (test code = NON-REACTIVE 2729) HEPATITIS B SURFACE AB (test NON-REACTIVE code = 2737) HEPATITIS C ANTIBODY (test code REACTIVE = 4675) INTERPRETATION HEPATITIS A: (NOTE) (test code = 2552) INTERPRETATION HEPATITIS B: (NOTE) (test code = 06916) INTERPRETATION HEPATITIS C: (NOTE) (test code = 80049) HIV AB/AG COMBO RFLX [id number] 00:00:00 Test Item Value Reference Range Interpretation Comments HIV 1/2 4TH GEN, RFLX CONF (test NON-REACTIVE code = 3514) HIV AB/AG COMBO RFLX [id number] 00:00:00 Test Item Value Reference Range Interpretation Comments HIV 1/2 4TH GEN, RFLX CONF (test NON-REACTIVE code = 3514) HEPATITIS PROFILE (A,B,C)2020-05-19 00:00:00 Test Item Value Reference Range Interpretation Comments HEPATITIS A TOTAL AB (test code NON-REACTIVE = 2725) HEPATITIS B SURF AG (test code = NON-REACTIVE 2739) HEP B CORE TOTAL AB (test code = NON-REACTIVE 2729) HEPATITIS B SURFACE AB (test NON-REACTIVE code = 2737) HEPATITIS C ANTIBODY (test code REACTIVE = 4675) INTERPRETATION HEPATITIS A: (NOTE) (test code = 2552) INTERPRETATION HEPATITIS B: (NOTE) (test code = 83698) INTERPRETATION HEPATITIS C: (NOTE) (test code = 79527) HIV AB/AG COMBO RFLX [id number] 00:00:00 Test Item Value Reference Range Interpretation Comments HIV 1/2 4TH GEN, RFLX CONF (test NON-REACTIVE code = 3514) HEPATITIS PROFILE (A,B,C)2020-05-19 00:00:00 Test Item Value Reference Range Interpretation Comments HEPATITIS A TOTAL AB (test code NON-REACTIVE = 2725) HEPATITIS B SURF AG (test code = NON-REACTIVE 2739) HEP B CORE TOTAL AB (test code = NON-REACTIVE 2729) HEPATITIS B SURFACE AB (test NON-REACTIVE code = 2737) HEPATITIS C ANTIBODY (test code REACTIVE = 4675) INTERPRETATION HEPATITIS A: (NOTE) (test code = 2552) INTERPRETATION HEPATITIS B: (NOTE) (test code = 99627) INTERPRETATION HEPATITIS C: (NOTE) (test code = 08716) HEPATITIS PROFILE (A,B,C)2020-05-19 00:00:00 Test Item Value Reference Range Interpretation Comments HEPATITIS A TOTAL AB (test code NON-REACTIVE = 2725) HEPATITIS B SURF AG (test code = NON-REACTIVE 2739) HEP B CORE TOTAL AB (test code = NON-REACTIVE 2729) HEPATITIS B SURFACE AB (test NON-REACTIVE code = 2737) HEPATITIS C ANTIBODY (test code REACTIVE = 4675) INTERPRETATION HEPATITIS A: (NOTE) (test code = 2552) INTERPRETATION HEPATITIS B: (NOTE) (test code = 91096) INTERPRETATION HEPATITIS C: (NOTE) (test code = 77966) HIV AB/AG COMBO RFLX [id number] 00:00:00 Test Item Value Reference Range Interpretation Comments HIV 1/2 4TH GEN, RFLX CONF (test NON-REACTIVE code = 3514) HIV AB/AG COMBO RFLX [id number] 00:00:00 Test Item Value Reference Range Interpretation Comments HIV 1/2 4TH GEN, RFLX CONF (test NON-REACTIVE code = 3514) HEPATITIS PROFILE (A,B,C)2020-05-19 00:00:00 Test Item Value Reference Range Interpretation Comments HEPATITIS A TOTAL AB (test code NON-REACTIVE = 2725) HEPATITIS B SURF AG (test code = NON-REACTIVE 2739) HEP B CORE TOTAL AB (test code = NON-REACTIVE 2729) HEPATITIS B SURFACE AB (test NON-REACTIVE code = 2737) HEPATITIS C ANTIBODY (test code REACTIVE = 4675) INTERPRETATION HEPATITIS A: (NOTE) (test code = 2552) INTERPRETATION HEPATITIS B: (NOTE) (test code = 61116) INTERPRETATION HEPATITIS C: (NOTE) (test code = 37954) HEPATITIS PROFILE (A,B,C)2020-05-19 00:00:00 Test Item Value Reference Range Interpretation Comments HEPATITIS A TOTAL AB (test code NON-REACTIVE = 2725) HEPATITIS B SURF AG (test code = NON-REACTIVE 2739) HEP B CORE TOTAL AB (test code = NON-REACTIVE 2729) HEPATITIS B SURFACE AB (test NON-REACTIVE code = 2737) HEPATITIS C ANTIBODY (test code REACTIVE = 4675) INTERPRETATION HEPATITIS A: (NOTE) (test code = 2552) INTERPRETATION HEPATITIS B: (NOTE) (test code = 45876) INTERPRETATION HEPATITIS C: (NOTE) (test code = 04395) HIV AB/AG COMBO RFLX [id number] 00:00:00 Test Item Value Reference Range Interpretation Comments HIV 1/2 4TH GEN, RFLX CONF (test NON-REACTIVE code = 3514) HIV AB/AG COMBO RFLX [id number] 00:00:00 Test Item Value Reference Range Interpretation Comments HIV 1/2 4TH GEN, RFLX CONF (test NON-REACTIVE code = 3514) HEPATITIS PROFILE (A,B,C)2020-05-19 00:00:00 Test Item Value Reference Range Interpretation Comments HEPATITIS A TOTAL AB (test code NON-REACTIVE = 2725) HEPATITIS B SURF AG (test code = NON-REACTIVE 2739) HEP B CORE TOTAL AB (test code = NON-REACTIVE 2729) HEPATITIS B SURFACE AB (test NON-REACTIVE code = 2737) HEPATITIS C ANTIBODY (test code REACTIVE = 4675) INTERPRETATION HEPATITIS A: (NOTE) (test code = 2552) INTERPRETATION HEPATITIS B: (NOTE) (test code = 21278) INTERPRETATION HEPATITIS C: (NOTE) (test code = 68208) HEPATITIS PROFILE (A,B,C)2020-05-19 00:00:00 Test Item Value Reference Range Interpretation Comments HEPATITIS A TOTAL AB (test code NON-REACTIVE = 2725) HEPATITIS B SURF AG (test code = NON-REACTIVE 2739) HEP B CORE TOTAL AB (test code = NON-REACTIVE 2729) HEPATITIS B SURFACE AB (test NON-REACTIVE code = 2737) HEPATITIS C ANTIBODY (test code REACTIVE = 4675) INTERPRETATION HEPATITIS A: (NOTE) (test code = 2552) INTERPRETATION HEPATITIS B: (NOTE) (test code = 24116) INTERPRETATION HEPATITIS C: (NOTE) (test code = 50627) HIV AB/AG COMBO RFLX [id number] 00:00:00 Test Item Value Reference Range Interpretation Comments HIV 1/2 4TH GEN, RFLX CONF (test NON-REACTIVE code = 3514) HIV AB/AG COMBO RFLX [id number] 00:00:00 Test Item Value Reference Range Interpretation Comments HIV 1/2 4TH GEN, RFLX CONF (test NON-REACTIVE code = 3514) HEPATITIS PROFILE (A,B,C)2020-05-19 00:00:00 Test Item Value Reference Range Interpretation Comments HEPATITIS A TOTAL AB (test code NON-REACTIVE = 2725) HEPATITIS B SURF AG (test code = NON-REACTIVE 2739) HEP B CORE TOTAL AB (test code = NON-REACTIVE 2729) HEPATITIS B SURFACE AB (test NON-REACTIVE code = 2737) HEPATITIS C ANTIBODY (test code REACTIVE = 4675) INTERPRETATION HEPATITIS A: (NOTE) (test code = 2552) INTERPRETATION HEPATITIS B: (NOTE) (test code = 61719) INTERPRETATION HEPATITIS C: (NOTE) (test code = 25077) HEPATITIS PROFILE (A,B,C)2020-05-19 00:00:00 Test Item Value Reference Range Interpretation Comments HEPATITIS A TOTAL AB (test code NON-REACTIVE = 2725) HEPATITIS B SURF AG (test code = NON-REACTIVE 2739) HEP B CORE TOTAL AB (test code = NON-REACTIVE 2729) HEPATITIS B SURFACE AB (test NON-REACTIVE code = 2737) HEPATITIS C ANTIBODY (test code REACTIVE = 4675) INTERPRETATION HEPATITIS A: (NOTE) (test code = 2552) INTERPRETATION HEPATITIS B: (NOTE) (test code = 29045) INTERPRETATION HEPATITIS C: (NOTE) (test code = 33934) HIV AB/AG COMBO RFLX [id number] 00:00:00 Test Item Value Reference Range Interpretation Comments HIV 1/2 4TH GEN, RFLX CONF (test NON-REACTIVE code = 3514) HIV AB/AG COMBO RFLX [id number] 00:00:00 Test Item Value Reference Range Interpretation Comments HIV 1/2 4TH GEN, RFLX CONF (test NON-REACTIVE code = 3514) HEPATITIS PROFILE (A,B,C)2020-05-19 00:00:00 Test Item Value Reference Range Interpretation Comments HEPATITIS A TOTAL AB (test code NON-REACTIVE = 2725) HEPATITIS B SURF AG (test code = NON-REACTIVE 2739) HEP B CORE TOTAL AB (test code = NON-REACTIVE 2729) HEPATITIS B SURFACE AB (test NON-REACTIVE code = 2737) HEPATITIS C ANTIBODY (test code REACTIVE = 4675) INTERPRETATION HEPATITIS A: (NOTE) (test code = 2552) INTERPRETATION HEPATITIS B: (NOTE) (test code = 84528) INTERPRETATION HEPATITIS C: (NOTE) (test code = 79189) HEPATITIS PROFILE (A,B,C)2020-05-19 00:00:00 Test Item Value Reference Range Interpretation Comments HEPATITIS A TOTAL AB (test code NON-REACTIVE = 2725) HEPATITIS B SURF AG (test code = NON-REACTIVE 2739) HEP B CORE TOTAL AB (test code = NON-REACTIVE 2729) HEPATITIS B SURFACE AB (test NON-REACTIVE code = 2737) HEPATITIS C ANTIBODY (test code REACTIVE = 4675) INTERPRETATION HEPATITIS A: (NOTE) (test code = 2552) INTERPRETATION HEPATITIS B: (NOTE) (test code = 22233) INTERPRETATION HEPATITIS C: (NOTE) (test code = 57639) HIV AB/AG COMBO RFLX [id number] 00:00:00 Test Item Value Reference Range Interpretation Comments HIV 1/2 4TH GEN, RFLX CONF (test NON-REACTIVE code = 3514) HIV AB/AG COMBO RFLX [id number] 00:00:00 Test Item Value Reference Range Interpretation Comments HIV 1/2 4TH GEN, RFLX CONF (test NON-REACTIVE code = 3514) HEPATITIS PROFILE (A,B,C)2020-05-19 00:00:00 Test Item Value Reference Range Interpretation Comments HEPATITIS A TOTAL AB (test code NON-REACTIVE = 2725) HEPATITIS B SURF AG (test code = NON-REACTIVE 2739) HEP B CORE TOTAL AB (test code = NON-REACTIVE 2729) HEPATITIS B SURFACE AB (test NON-REACTIVE code = 2737) HEPATITIS C ANTIBODY (test code REACTIVE = 4675) INTERPRETATION HEPATITIS A: (NOTE) (test code = 2552) INTERPRETATION HEPATITIS B: (NOTE) (test code = 15293) INTERPRETATION HEPATITIS C: (NOTE) (test code = 43987) HEPATITIS PROFILE (A,B,C)2020-05-19 00:00:00 Test Item Value Reference Range Interpretation Comments HEPATITIS A TOTAL AB (test code NON-REACTIVE = 2725) HEPATITIS B SURF AG (test code = NON-REACTIVE 2739) HEP B CORE TOTAL AB (test code = NON-REACTIVE 2729) HEPATITIS B SURFACE AB (test NON-REACTIVE code = 2737) HEPATITIS C ANTIBODY (test code REACTIVE = 4675) INTERPRETATION HEPATITIS A: (NOTE) (test code = 2552) INTERPRETATION HEPATITIS B: (NOTE) (test code = 29721) INTERPRETATION HEPATITIS C: (NOTE) (test code = 25745) HIV AB/AG COMBO RFLX [id number] 00:00:00 Test Item Value Reference Range Interpretation Comments HIV 1/2 4TH GEN, RFLX CONF (test NON-REACTIVE code = 3514) HIV AB/AG COMBO RFLX [id number] 00:00:00 Test Item Value Reference Range Interpretation Comments HIV 1/2 4TH GEN, RFLX CONF (test NON-REACTIVE code = 3514) HEPATITIS PROFILE (A,B,C)2020-05-19 00:00:00 Test Item Value Reference Range Interpretation Comments HEPATITIS A TOTAL AB (test code NON-REACTIVE = 2725) HEPATITIS B SURF AG (test code = NON-REACTIVE 2739) HEP B CORE TOTAL AB (test code = NON-REACTIVE 2729) HEPATITIS B SURFACE AB (test NON-REACTIVE code = 2737) HEPATITIS C ANTIBODY (test code REACTIVE = 4675) INTERPRETATION HEPATITIS A: (NOTE) (test code = 2552) INTERPRETATION HEPATITIS B: (NOTE) (test code = 55534) INTERPRETATION HEPATITIS C: (NOTE) (test code = 49886) HEPATITIS PROFILE (A,B,C)2020-05-19 00:00:00 Test Item Value Reference Range Interpretation Comments HEPATITIS A TOTAL AB (test code NON-REACTIVE = 2725) HEPATITIS B SURF AG (test code = NON-REACTIVE 2739) HEP B CORE TOTAL AB (test code = NON-REACTIVE 2729) HEPATITIS B SURFACE AB (test NON-REACTIVE code = 2737) HEPATITIS C ANTIBODY (test code REACTIVE = 4675) INTERPRETATION HEPATITIS A: (NOTE) (test code = 2552) INTERPRETATION HEPATITIS B: (NOTE) (test code = 33819) INTERPRETATION HEPATITIS C: (NOTE) (test code = 61384) HIV AB/AG COMBO RFLX [id number] 00:00:00 Test Item Value Reference Range Interpretation Comments HIV 1/2 4TH GEN, RFLX CONF (test NON-REACTIVE code = 3514) HIV AB/AG COMBO RFLX [id number] 00:00:00 Test Item Value Reference Range Interpretation Comments HIV 1/2 4TH GEN, RFLX CONF (test NON-REACTIVE code = 3514) SARS-CoV-2 (COVID-19) by RT-PCR (HIGH RISK)2019-12-14 00:00:00 Test Item Value Reference Range Interpretation Comments SARS-CoV-2 INTERPRETATION (test NEGATIVE code = 72714) SOURCE (test code = 68360) NOT SPECIFIED SARS-CoV-2 (COVID-19) by RT-PCR (HIGH RISK)2019-12-14 00:00:00 Test Item Value Reference Range Interpretation Comments SARS-CoV-2 INTERPRETATION (test NEGATIVE code = 66124) SOURCE (test code = 36552) NOT SPECIFIED SARS-CoV-2 (COVID-19) by RT-PCR (HIGH RISK)2019-12-14 00:00:00 Test Item Value Reference Range Interpretation Comments SARS-CoV-2 INTERPRETATION (test NEGATIVE code = 60453) SOURCE (test code = 33188) NOT SPECIFIED SARS-CoV-2 (COVID-19) by RT-PCR (HIGH RISK)2019-12-14 00:00:00 Test Item Value Reference Range Interpretation Comments SARS-CoV-2 INTERPRETATION (test NEGATIVE code = 62004) SOURCE (test code = 80327) NOT SPECIFIED SARS-CoV-2 (COVID-19) by RT-PCR (HIGH RISK)2019-12-14 00:00:00 Test Item Value Reference Range Interpretation Comments SARS-CoV-2 INTERPRETATION (test NEGATIVE code = 56383) SOURCE (test code = 36275) NOT SPECIFIED SARS-CoV-2 (COVID-19) by RT-PCR (HIGH RISK)2019-12-14 00:00:00 Test Item Value Reference Range Interpretation Comments SARS-CoV-2 INTERPRETATION (test NEGATIVE code = 98888) SOURCE (test code = 89339) NOT SPECIFIED SARS-CoV-2 (COVID-19) by RT-PCR (HIGH RISK)2019-12-14 00:00:00 Test Item Value Reference Range Interpretation Comments SARS-CoV-2 INTERPRETATION (test NEGATIVE code = 85209) SOURCE (test code = 30829) NOT SPECIFIED SARS-CoV-2 (COVID-19) by RT-PCR (HIGH RISK)2019-12-14 00:00:00 Test Item Value Reference Range Interpretation Comments SARS-CoV-2 INTERPRETATION (test NEGATIVE code = 59160) SOURCE (test code = 89497) NOT SPECIFIED SARS-CoV-2 (COVID-19) by RT-PCR (HIGH RISK)2019-12-14 00:00:00 Test Item Value Reference Range Interpretation Comments SARS-CoV-2 INTERPRETATION (test NEGATIVE code = 83967) SOURCE (test code = 20404) NOT SPECIFIED SARS-CoV-2 (COVID-19) by RT-PCR (HIGH RISK)2019-12-14 00:00:00 Test Item Value Reference Range Interpretation Comments SARS-CoV-2 INTERPRETATION (test NEGATIVE code = 20767) SOURCE (test code = 83875) NOT SPECIFIED SARS-CoV-2 (COVID-19) by RT-PCR (HIGH RISK)2019-12-14 00:00:00 Test Item Value Reference Range Interpretation Comments SARS-CoV-2 INTERPRETATION (test NEGATIVE code = 97562) SOURCE (test code = 03708) NOT SPECIFIED SARS-CoV-2 (COVID-19) by RT-PCR (HIGH RISK)2019-12-14 00:00:00 Test Item Value Reference Range Interpretation Comments SARS-CoV-2 INTERPRETATION (test NEGATIVE code = 67763) SOURCE (test code = 82352) NOT SPECIFIED SARS-CoV-2 (COVID-19) by RT-PCR (HIGH RISK)2019-12-14 00:00:00 Test Item Value Reference Range Interpretation Comments SARS-CoV-2 INTERPRETATION (test NEGATIVE code = 80289) SOURCE (test code = 59082) NOT SPECIFIED SARS-CoV-2 (COVID-19) by RT-PCR (HIGH RISK)2019-12-14 00:00:00 Test Item Value Reference Range Interpretation Comments SARS-CoV-2 INTERPRETATION (test NEGATIVE code = 96841) SOURCE (test code = 13178) NOT SPECIFIED SARS-CoV-2 (COVID-19) by RT-PCR (HIGH RISK)2019-12-14 00:00:00 Test Item Value Reference Range Interpretation Comments SARS-CoV-2 INTERPRETATION (test NEGATIVE code = 15248) SOURCE (test code = 52908) NOT SPECIFIED SARS-CoV-2 (COVID-19) by RT-PCR (HIGH RISK)2019-12-14 00:00:00 Test Item Value Reference Range Interpretation Comments SARS-CoV-2 INTERPRETATION (test NEGATIVE code = 20283) SOURCE (test code = 62092) NOT SPECIFIED SARS-CoV-2 (COVID-19) by RT-PCR (HIGH RISK)2019-12-14 00:00:00 Test Item Value Reference Range Interpretation Comments SARS-CoV-2 INTERPRETATION (test NEGATIVE code = 71521) SOURCE (test code = 45075) NOT SPECIFIED
--- NOTE | 2022-09-10 13:45 | RAD REPORT ---
EXAM DESCRIPTION: RAD - Chest Pa And Lat (2 Views) - 09/10/2022 1:39 pm CLINICAL HISTORY: Cough Chest pain. COMPARISON: Chest Pa And Lat (2 Views) dated 01/21/2018; CHEST SINGLE VIEW dated 05/05/2012; CHEST PA A ND LAT 2 VIEW dated 12/27/2010; CHEST PA AND LAT 2 VIEW dated 08/28/2010 TECHNIQUE: PA and lateral views of the chest were obtained. FINDINGS: The lungs are hyperexpanded compatible with COPD. The heart is upper limit of normal in si ze. No fracture or aggressive bony process. IMPRESSION: COPD without acute process identified. The USPSTF recommends annual screening for lung cancer with low-dose CT (LDCT) in adults aged 50 to 80 years who have a 20 pack-year smoking history and currently smoke or have quit within the past 15 years.
[2022-09-10] MEDS ORDERED: ALBUTEROL 2.5 MG/3 ML NEB SOL ONE (14:13)
[2022-09-10] MEDS ORDERED: IPRATROPIUM BROM 0.5MG/2.5ML ONE (14:13)
[2022-09-10 14:15] LABS: SARS-COV-2 RT PCR NEGATIVE (NEGATIVE)
[2022-09-10 14:54] LABS: Absolute Lymphocytes (CBC) 2.1 K/uL (0.7-4.9); Hematocrit 41.2 % (36.0-45.0); MCV 86.3 fL (80-100); MPV 7.7 fL (7.6-11.3); RBC Red Blood Cell Count 4.77 M/uL (3.86-4.86)
[2022-09-10 15:17] LABS: Potassium 3.5 mmol/L (3.5-5.1)
--- NOTE | 2022-09-10 15:49 | RAD REPORT ---
EXAM DESCRIPTION: CT - Chest For Pe Angio - 09/10/2022 3:41 pm CLINICAL HISTORY: Chest pain. hemoptysis, hx of blood clots COMPARISON: CTANGIO CHEST FOR PE dated 08/28/2010 TECHNIQUE: CT angiogram of the pulmonary arteries was performed with MIP. All CT scans are performed using dose optimization technique as appropriate and may include automated exposure control or mA/KV adjustment according to patient size. FINDINGS: No evidence of pulmonary thromboembolism. No acute aortic finding demonstrated. The lungs are emphysematous with mild patchy opacity in the right lower lobe. Mildly prominent lymph nodes are present in the mediastinum. No significant pericardial or pleural fluid. No concerning bony finding. IMPRESSION: No evidence of pulmonary thromboembolism. Patchy opacity in the right lower lobe likely represents developing pneumonia.
--- NOTE | 2022-09-10 16:04 | EDPHYS ---
Physician Documentation [facility] Name: Roseline Cabrera Age: 62 yrs Sex: Female : 1960 Arrival Date: 09/10/2022 Time: 12:42 Bed 12 Private MD: ED Physician Aime Pak HPI: 09/10 13:35 This 62 yrs old Female presents to ER via Unassigned with complaints of Cough - kb w/blood, Flu Symptoms. 13:35 The patient or guardian reports cough, that is intermittent, described as moderate, flu kb symptoms, myalgias. Onset: The symptoms/episode began/occurred 1 week(s) ago. Severity of symptoms: At their worst the symptoms were moderate, in the emergency department the symptoms are unchanged. Modifying factors: The symptoms are alleviated by nothing, the symptoms are aggravated by nothing. Associated signs and symptoms: Pertinent positives: rhinorrhea. The patient has not experienced similar symptoms in the past. The patient has not recently seen a physician. Historical: - Allergies: 13:39 tramadol; iw 13:39 Gabapentin; iw - Immunization history:: Client reports having NOT received the Covid vaccine. - Social history:: Smoking status: Patient/guardian denies using tobacco, but has a distant history of tobacco abuse. ROS: 13:34 Abdomen/GI: Negative for abdominal pain, nausea, vomiting, diarrhea, and constipation. kb 13:34 Constitutional: Positive for body aches, malaise. 13:34 ENT: Positive for rhinorrhea, sinus congestion. 13:34 Respiratory: Positive for cough, hemoptysis. 13:34 All other systems are negative. 13:34 Neuro: Positive for headache. kb Exam: 13:34 Constitutional: This is a well developed, well nourished patient who is awake, alert, kb and in no acute distress. Head/Face: Normocephalic, atraumatic. ENT: Moist Mucous membranes Cardiovascular: Regular rate and rhythm with a normal S1 and S2. No gallops, murmurs, or rubs. No pulse deficits. Respiratory: Respirations even and unlabored. No increased work of breathing. Talking in full sentences Abdomen/GI: Soft, non-tender. No distention Skin: Warm, dry with normal turgor. Normal color. MS/ Extremity: Pulses equal, no cyanosis. Neurovascular intact. Full, normal range of motion. Neuro: Awake and alert, GCS 15, oriented to person, place, time, and situation. Moves all extremities. Normal gait. Vital Signs: 13:21 BP 118 / 83; Pulse 69; Resp 18; Temp 97.3; Pulse Ox 96% on R/A; Weight 72.57 kg; Height iw 5 ft. 4 in. (162.56 cm); Pain 6/10; 16:34 BP 116 / 63; Pulse 79; Resp 15; Pulse Ox 92% ; jl7 13:21 Body Mass Index 27.46 (72.57 kg, 162.56 cm) iw MDM: 13:23 Patient medically screened. kb 13:34 Differential Diagnosis: Bronchitis Influenza Upper Respiratory Infection Pneumonia kb Other covid. Data reviewed: vital signs, nurses notes. 16:03 Consideration of Admission/Observation Escalation of care including kb admission/observation considered. Counseling: I had a detailed discussion with the patient and/or guardian regarding: the historical points, exam findings, and any diagnostic results supporting the discharge/admit diagnosis, lab results, radiology results, the need for outpatient follow up, a family practitioner, to return to the emergency department if symptoms worsen or persist or if there are any questions or concerns that arise at home. 09/10 13:24 Order name: COVID-19/FLU A+B; Complete Time: 14:21 kb 09/10 14:26 Order name: CBC with Diff; Complete Time: 14:56 kb 09/10 13:24 Order name: Chest Pa And Lat (2 Views) XRAY; Complete Time: 13:49 kb 09/10 14:26 Order name: Basic Metabolic Panel; Complete Time: 15:20 kb 09/10 14:26 Order name: CT Chest For PE Angio; Complete Time: 15:53 kb 09/10 14:26 Order name: IV Start; Complete Time: 14:42 kb Administered Medications: 14:16 Drug: Albuterol 2.5 mg Route: Inhalation; iw 14:16 Drug: AtroVENT (ipratropium) Aerosol 0.5 mg Route: Inhalation; iw 16:20 Drug: Rocephin (cefTRIAXone) 1 grams Route: IV; Rate: calculated rate; Site: left jl7 forearm; 16:25 Follow up: Response: No adverse reaction; IV Status: Completed infusion jl7 Disposition: 16:43 Co-signature as Attending Physician, Aime Pak MD I reviewed the patient's care rt provided by the Advanced Practice Provider and agree with the diagnosis and treatment plan. Disposition Summary: 09/10/22 16:04 Discharge Ordered Location: Home kb Condition: Stable kb Diagnosis - Pneumonia, unspecified organism kb Followup: kb - With: Emergency Department - When: As needed - Reason: Worsening of condition Followup: kb - With: Private Physician - When: 2 - 3 days - Reason: Recheck today's complaints, Continuance of care, Re-evaluation by your physician Discharge Instructions: - Discharge Summary Sheet kb - Community-Acquired Pneumonia, Adult, [id number] kb Forms: - Medication Reconciliation Form kb - Thank You Letter kb - Antibiotic Education kb - Prescription Opioid Use kb Prescriptions: - Prednisone 20 mg Oral Tablet - take 1 tablet by ORAL route once daily for 5 days; 5 tablet; Refills: 0, kb Product Selection Permitted - Tessalon Perles 100 mg Oral Capsule - take 1 capsule by ORAL route every 8 hours As needed; 15 capsule; Refills: 0, kb Product Selection Permitted - Zithromax 500 mg Oral Tablet - take 1 tablet by ORAL route once daily for 5 days; 5 tablet; Refills: 0, kb Product Selection Permitted Signatures: Dispatcher [employer] Radhika Cox, AUTOMATIC BRINE MIXER OPERATOR-C AUTOMATIC BRINE MIXER OPERATOR-Veronica Anderson, Angeline Pink RN, RN RN jl7 Aime Pak MD MD rt
--- NOTE | 2022-09-10 16:04 | ER ---
Nurse's Notes [facility] Name: Roseline Cabrera Age: 62 yrs Sex: Female : 1960 Arrival Date: 09/10/2022 Time: 12:42 Bed 12 Private MD: Diagnosis: Pneumonia, unspecified organism Presentation: 09/10 13:32 Chief complaint: Patient states: sick with flu like symptoms for about a week and iw started coughing up blood yesterday. Coronavirus screen: Vaccine status: Patient reports being unvaccinated. Coronavirus screen: Client presents with at least one sign or symptom that may indicate coronavirus-19. Ebola Screen: Patient negative for fever greater than or equal to 101.5 degrees Fahrenheit, and additional compatible Ebola Virus Disease symptoms Patient denies exposure to infectious person. Patient denies travel to an Ebola-affected area in the 21 days before illness onset. Initial Sepsis Screen: Does the patient meet any 2 criteria? No. Patient's initial sepsis screen is negative. Does the patient have a suspected source of infection? No. Patient's initial sepsis screen is negative. Risk Assessment: Do you want to hurt yourself or someone else? Patient reports no desire to harm self or others. Onset of symptoms was September 02, 2022. 13:32 Method Of Arrival: Ambulatory iw 13:32 Acuity: YARIEL 4 iw 14:43 Acuity: YARIEL 3 iw Historical: - Allergies: 13:39 tramadol; iw 13:39 Gabapentin; iw - Immunization history:: Client reports having NOT received the Covid vaccine. - Social history:: Smoking status: Patient/guardian denies using tobacco, but has a distant history of tobacco abuse. Screenin:34 [facility] ED Fall Risk Assessment (Adult) History of falling in the last 3 months, jl7 including since admission No falls in past 3 months (0 pts) Confusion or Disorientation No (0 pts) Intoxicated or Sedated No (0 pts) Impaired Gait No (0 pts) Mobility Assist Device Used No (0 pt) Altered Elimination No (0 pt) Score/Fall Risk Level 0 - 2 = Low Risk Oriented to surroundings, Maintained a safe environment. Abuse screen: Denies threats or abuse. Denies injuries from another. Nutritional screening: No deficits noted. Tuberculosis screening: No symptoms or risk factors identified. Assessment: 15:11 Reassessment: Patient appears in no apparent distress at this time. Patient and/or iw family updated on plan of care and expected duration. Pain level reassessed. Patient is alert, oriented x 3, equal unlabored respirations, skin warm/dry/pink. Vital Signs: 13:21 BP 118 / 83; Pulse 69; Resp 18; Temp 97.3; Pulse Ox 96% on R/A; Weight 72.57 kg; Height iw 5 ft. 4 in. (162.56 cm); Pain 6/10; 16:34 BP 116 / 63; Pulse 79; Resp 15; Pulse Ox 92% ; jl7 13:21 Body Mass Index 27.46 (72.57 kg, 162.56 cm) iw ED Course: 12:42 Patient arrived in ED. am2 13:00 Radhika Van FNP-C is PHCP. kb 13:00 Aime Pak MD is Attending Physician. kb 13:39 Triage completed. iw 13:40 Chest Pa And Lat (2 Views) XRAY In Process Unspecified. EDMS 14:08 Veronica Estrella, RN is Primary Nurse. iw 14:42 Basic Metabolic Panel Sent. bc6 14:42 CBC with Diff Sent. bc6 14:42 Initial lab(s) drawn, by nm, sent to lab. Inserted saline lock: 20 gauge in left bc6 forearm, using aseptic technique. 15:11 Patient has correct armband on for positive identification. iw 15:43 CT Chest For PE Angio In Process Unspecified. EDMS 16:34 No provider procedures requiring assistance completed. IV discontinued, intact, jl7 bleeding controlled, No redness/swelling at site. Pressure dressing applied. Administered Medications: 14:16 Drug: Albuterol 2.5 mg Route: Inhalation; iw 14:16 Drug: AtroVENT (ipratropium) Aerosol 0.5 mg Route: Inhalation; iw 16:20 Drug: Rocephin (cefTRIAXone) 1 grams Route: IV; Rate: calculated rate; Site: left jl7 forearm; 16:25 Follow up: Response: No adverse reaction; IV Status: Completed infusion jl7 Medication: 16:34 VIS not applicable for this client. jl7 Outcome: 16:04 Discharge ordered by . kb 16:34 Discharged to home ambulatory. jl7 16:34 Condition: stable 16:34 Discharge instructions given to patient, Instructed on discharge instructions, follow up and referral plans. medication usage, Demonstrated understanding of instructions, follow-up care, medications, Prescriptions given X 3. 16:35 Patient left the ED. jl7 Signatures: Dispatcher [employer] EDRadhika Jaramillo, MALIA CARLTONP-Veronica Anderson, RN RN iw Angeline Aldana RN RN jl7 Sejal Puga am2 Bianca Hawley 6 Corrections: (The following items were deleted from the chart) 13:25 13:21 BP 118 / 83; Pulse 69bpm; Resp 18bpm; Pulse Ox 96% RA; Temp 97.3F; 72.57 kg; iw Height 5 ft. 4 in.; BMI: 27.4; iw
[2022-09-10] MEDS ORDERED: CEFTRIAXONE 1000 MG/VIAL ONE (16:26)
[2022-09-10 16:39] VITALS: TEMP 97.3
[2022-09-10 16:41] VITALS: BP 116/63; O2SAT 92
== END 2022-09-10 16:35 | disposition home or self-care (01) ==
LOC: ER 12:35
DX: J18.9 Pneumonia, unspecified organism (principal); Z20.822 Contact with and (suspected) exposure to COVID-19; Z88.5 Allergy status to narcotic agent; Z88.8 Allergy status to other drugs, medicaments and biological substances
CPT/HCPCS: 85025; 80048; 36415; 0240U; 71275; 71046; Q9967; J7613; J7644